=== PATIENT | female | born 1950 | race Caucasian/White ===

== ENCOUNTER 2020-03-12 10:36 | Outpatient (CLI) | payer MEDICARE, BC, SELFPAY ==
[2020-03-12 11:39] LABS: Anion Gap 14.1 (5-19); Blood Urea Nitrogen 6 mg/dL (8-23); Calcium 9.7 mg/dL (8.5-10.5); Carbon Dioxide 29 mmol/L (22-29); Chloride 100 mmol/L (98-107); Free T4 Free Thyroxine 1.34 ng/dL (0.82-1.77); Glucose 101 mg/dL (65-115); Osmolality Calculated 286 mOsm/kg (285-295); Potassium 3.1 mmol/L (3.5-5.1); Sodium 140 mmol/L (136-145)
== END 2020-03-12 10:37 | disposition home or self-care (01) ==
LOC: LAB 10:50
PROVIDERS: Internal Medicine; PCP Nurse Practitioner Family; Visit Provider Nurse Practitioner Family
DX: E27.49 Other adrenocortical insufficiency (principal); E03.8 Other specified hypothyroidism; E89.3 Postprocedural hypopituitarism; Z98.890 Other specified postprocedural states
CPT/HCPCS: 80048; 84439; 99204

== ENCOUNTER 2020-05-29 14:28 | Inpatient (IN) | payer MEDICARE, BC, SELFPAY ==
[2020-05-29] VITALS (54 sets, daily range): BP systolic 114–153; BP diastolic 67–93; PULSE 62–77; RESP 13–22; TEMP 36.3–36.9; O2SAT 89–98; BMI 29.0
--- NOTE | 2020-05-29 14:32 | CT_ITS ---
WS: [id number] CT HEAD TECHNIQUE: Noncontrast CT of the head obtained from the skullbase to the vertex. CLINICAL INFORMATION: ams COMPARISON: 3 31,015 DLP: All CT scans at [facility] use at least one of these dose optimization techniques: automat ed exposure control; mA and/or kV adjustment per patient size (includes targeted exams where dose is matched to clinical indication); or iterative reconstruction. FINDINGS: No evidence of intracranial hemorrhage or mass effect. Ventricular system and basal cisterns are reese nt. Mild small vessel changes. Mild parenchymal volume loss. No extra-axial fluid collections. No eunice dence of mass or mass effect. Normal dailey-white differentiation. Paranasal sinuses and mastoid air cells are well aerated. .Normal visualized soft tissues. CT/CT head wo con* [id number] IMPRESSION: 1. No evidence of intracranial hemorrhage or mass effect. 2. Mild small vessel changes. Mild parenchymal volume loss. 3. No acute intracranial findings. Notified Melissa Miranda MD at 05/29/2020 2:40 PM.
--- NOTE | 2020-05-29 14:32 | XR_ITS ---
WS: [id number] Portable AP upright chest, 05/29/2020 Clinical Data: ams Comparison: Portable chest, 04/21/2018. Findings: The patient has a poor inspiratory effort which accentuates the atelectatic changes at the lung bases. There could also be bilateral basilar pneumonia. The upper lobes are clear. The heart siz e is normal. No pneumothorax is seen. Monitor leads are on the chest wall. There are right axillary s urgical clips. XR/XR chest 1V portable [id number] Impression: 1. Poor inspiratory effort and there may be bilateral basilar atelectasis and m inimal pneumonia. 2. Recommend repeat chest x-ray with better inspiration in one to 2 days.
--- NOTE | 2020-05-29 14:33 | ECG_ITS ---
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 Measurements Intervals [place] Rate: 63 P: 35 MN: 175 QRS: 12 QRSD: 105 T: 48 QT: 417 QTc: 428 Interpretive Statements SINUS RHYTHM LOW QRS VOLTAGE IN PRECORDIAL LEADS [QRS DEFLECTION < 1.0 mV IN CHEST LEADS] INFERIOR MYOCARDIAL INFARCTION , PROBABLY OLD [40+ ms Q WAVE AND/OR ST/T ABNORMALITY IN II/aVF] Compared to ECG 04/21/2018 16:55:44 Low QRS voltage now present Myocardial infarct finding still present Electronically Signed On 05-29-2020 17:13:57 HAND TENNIS [employer]ALL COVERER by Barber Lamb M.D. [email or web address]
[2020-05-29 14:45] LABS: ABG PCO2 45.5 mmHg (35-45); ABG PH Result 7.42 (7.35-7.45); Blood Gas Operator Identificat AMH; HCO3 ABG 29.3 mmol/L (22-26); PO2 ABG 61.1 mmHg (80.0-100.0)
[2020-05-29 14:46] LABS: Arterial Blood Gas Hematocrit 42.6 % (37-47); HGB O2 Sat 90.9 % (95-100); Methemoglobin 0.7 % (0.4-1.5); Oxygen Device NC; Total Hemoglobin 13.9 g/dL (12-16)
[2020-05-29 14:50] LABS: Glucose Point of Care 92 mg/dL (70-110)
--- NOTE | 2020-05-29 15:00 | ED_ITS ---
HPI - Altered Mental Status General: Chief Complaint: Altered Mental Status Stated Complaint: Unresponsive Time Seen by Provider: 05/29/20 14:32 Source: EMS Mode of arrival: EMS Limitations: altered mental status History of Present Illness: HPI narrative: 69-year-old female who is here by EMS for altered mental status. Patient per family at 130 had become unresponsive. Here she is diffusely unresponsive. She will respong to painful stimuli but will only moan. She will not give any history and will not speak. Patient is normotensive and pulse ox 98% on room air. Her heart rates normal as well. She had no known fever. No known med ingestion. Patient did have 0.4 Narcan in route. Review of Systems General: Reports: ROS unobtainable due to medical condition PFSH ED PFSH: Medical History (Updated 05/29/20 @ 16:37 by Melissa Miranda MD) Diastolic dysfunction H/O: pituitary tumor History of stroke HTN (hypertension) TIA (transient ischemic attack) Surgical History (Updated 03/17/20 @ 10:52 by Clement Sanchez MD) History of abdominal surgery Exploratory History of surgical removal of pituitary gland S/P lumpectomy of breast Family History Father Stroke Other CAD (coronary artery disease) Hypertension Social History Smoking and tobacco status: never smoked Alcohol intake: never Household members: spouse Marital status: Physical Exam Const: COMMON NORMALS: negative for patient oriented x3 EXAM LIMITATIONS: altered mental status HENMT: COMMON NORMALS: normocephalic and atraumatic HEAD & SCALP: normocephalic and atraumatic Eye: COMMON NORMALS: Equal, round and reactive pupils present and EOMs intact bilaterally PUPIL: Yes Equal, round and reactive pupils present Neck/C-Spine: COMMON NORMALS: full ROM and supple Chest: COMMONS NORMALS: normal inspection of the chest and normal palpation of entire chest wall Resp: COMMON NORMALS: normal respiratory effort, No retractions, No use of accessory muscles and clear to auscultation bilaterally AUSCULTATION: clear to auscultation bilaterally Cardio: COMMON NORMALS: regular rate, regular rhythm and No murmurs present (Cardio) RATE: regular rate RHYTHM: regular rhythm GI: COMMON NORMALS: Normal to inspection, nondistended, normoactive bowel sounds present, Soft to palpation, non-tender and no masses PALPATION: Yes Soft to palpation Extremity: COMMON NORMALS: normal to inspection and full ROM Neuro: COMMON NORMALS: no focal motor deficits; negative for patient oriented x3 and negative for moves all extremities SENSORIUM/ORIENTATION: Yes somnolent Psych: COMMON NORMALS: negative for mental status grossly normal Skin: COMMON NORMALS: no rashes or lesions noted and no wounds GENERAL SKIN EXAM: no rashes or lesions noted Course Vital Signs: Vital signs: Vital Signs Temperature 98.4 F 05/29/20 14:29 Pulse Rate 62 05/29/20 14:43 Respiratory Rate 18 05/29/20 14:43 Blood Pressure 126/86 05/29/20 14:43 Pulse Oximetry 93 05/29/20 14:43 MDM - Altered Mental Status MDM Narrative: Medical decision making narrative: Patient presents with altered mental status. Patient's work-up so far is normal. Patient's CT head x-ray and blood work are all normal. She has no signs of any ingestion and her vital signs here been completely normal. Patient's continue to be altered and only responds to painful stimuli. She has no fever no signs of infection. Patient was seen by neurologist Dr. Casarez when she arrived and Hermelindo did not believe she was a TPA candidate or an acute stroke. Will speak to Dr. Fox and admit to the ICU at this time. Lab Data: Labs: Lab Results 05/29/20 05/29/20 05/29/20 Range/Units 14:32 14:45 14:47 WBC 6.4 (4.0-10.0) 10^3/ uL RBC 4.49 (4.1-5.3) 10^6/u L Hgb 13.3 (11.5-15.3) g/dL Hct 41.7 (37.0-47.0) % MCV 92.9 (81-99) fL MCH 29.6 (28.0-34.0) pg MCHC 31.9 (30.0-36.0) g/dL RDW 13.9 (12.1-15.1) % Plt Count 195 (130-400) 10^3/c mm MPV 10.2 (7.4-10.4) fL Neut % (Auto) 59.5 % Lymph % (Auto) 31.2 % [place] % (Auto) 7.7 % Eos % (Auto) 0.6 % Baso % (Auto) 0.5 % Neut # (Auto) 3.80 (1.8-7.7) 10^3/u L Lymph # (Auto) 2.0 (0.8-4.8) 10^3/u L [place] # (Auto) 0.5 (0.2-0.9) 10^3/u L Eos # (Auto) 0.0 (0.0-0.8) 10^3/u L Baso # (Auto) 0.0 (0.0-0.1) 10^3/u L Nucleated RBC % (a uto) 0 % Nucleated RBCs # 0.0 /100WBC PT (12.1-14.9) SECO NDS INR (0.8-1.2) Specimen Type Arterial Sample Site Radial, left ABG pH 7.42 (7.35-7.45) ABG pCO2 45.5 H (35-45) mmHg ABG pO2 61.1 L (80.0-100.0) mmH g ABG HCO3 29.3 H (22-26) mmol/L ABG Base Excess 4.0 H (-2.0-2.0) mmol/ L Krishna Test Pos Hematocrit 42.6 (37-47) % Hgb O2 Saturation 90.9 L (95-100) % Carboxyhemoglobin 1.0 (0.4-20.1) %THgb Methemoglobin 0.7 (0.4-1.5) % Total Hemoglobin 13.9 (12-16) g/dL O2 Delivery Device Nc Dredge Or Barge [place] Hand ID Amh Sodium (136-145) mmol/L Potassium (3.5-5.1) mmol/L Chloride (98-107) mmol/L Carbon Dioxide (22-29) mmol/L Anion Gap (5-19) BUN (8-23) mg/dL Creatinine (0.5-0.9) mg/dL GFR Calculation Glucose (65-115) mg/dL POC Glucose 92 (70-110) mg/dL Calculated Osmolal ity (285-295) mOsm/k g Calcium (8.5-10.5) mg/dL Total Bilirubin (0.15-1.2) mg/dL AST (0-32) U/L ALT (0-33) U/L Alkaline Phosphata se (35-105) IU/L Total Protein (6.6-8.7) g/dL Albumin (3.5-5.2) g/dL Globulin (1.3-4.6) g/dL TSH (0.27-4.20) uIU/ mL Urine Color (Yellow) Urine Appearance (CLEAR) Urine pH (5-7) Ur Specific Gravit y (1.005-1.030) Urine Protein (Negative) Urine Glucose (UA) (Normal) Urine Ketones (Negative) Urine Blood (Negative) Urine Nitrate (Negative) Urine Bilirubin (Negative) Urine Urobilinogen (Negative) mg/dL Ur Leukocyte Monae ase (Negative) Urine RBC (0-2) /hpf Urine WBC (0-5) /hpf Ur Squamous Epith Cells (0-5) /hpf Amorphous Sediment Urine Bacteria (NONE) /hpf Urine Mucus /hpf Salicylates (3-10) mg/dL Urine Opiates Scre en (Negative) ng/mL Acetaminophen (10-30) ug/mL Ur Barbiturates Sc reen (Negative) ng/mL Ur Phencyclidine S crn (Negative) ng/mL Ur Amphetamines Sc reen (Negative) ng/mL U Benzodiazepines Scrn (Negative) ng/mL Urine Cocaine Scre en (Negative) ng/mL U Marijuana (THC) Screen (Negative) ng/mL Ethyl Alcohol (0-10) mg/dL 05/29/20 05/29/20 05/29/20 Range/Units 14:47 14:47 15:00 WBC (4.0-10.0) 10^3/ uL RBC (4.1-5.3) 10^6/u L Hgb (11.5-15.3) g/dL Hct (37.0-47.0) % MCV (81-99) fL MCH (28.0-34.0) pg MCHC (30.0-36.0) g/dL RDW (12.1-15.1) % Plt Count (130-400) 10^3/c mm MPV (7.4-10.4) fL Neut % (Auto) % Lymph % (Auto) % [place] % (Auto) % Eos % (Auto) % Baso % (Auto) % Neut # (Auto) (1.8-7.7) 10^3/u L Lymph # (Auto) (0.8-4.8) 10^3/u L [place] # (Auto) (0.2-0.9) 10^3/u L Eos # (Auto) (0.0-0.8) 10^3/u L Baso # (Auto) (0.0-0.1) 10^3/u L Nucleated RBC % (a uto) % Nucleated RBCs # /100WBC PT 12.50 (12.1-14.9) SECO NDS INR 0.91 (0.8-1.2) Specimen Type Sample Site ABG pH (7.35-7.45) ABG pCO2 (35-45) mmHg ABG pO2 (80.0-100.0) mmH g ABG HCO3 (22-26) mmol/L ABG Base Excess (-2.0-2.0) mmol/ L Krishna Test Hematocrit (37-47) % Hgb O2 Saturation (95-100) % Carboxyhemoglobin (0.4-20.1) %THgb Methemoglobin (0.4-1.5) % Total Hemoglobin (12-16) g/dL O2 Delivery Device Dredge Or Barge [place] Hand ID Sodium 140 (136-145) mmol/L Potassium 3.2 L (3.5-5.1) mmol/L Chloride 100 (98-107) mmol/L Carbon Dioxide 31 H (22-29) mmol/L Anion Gap 12.2 (5-19) BUN 6 L (8-23) mg/dL Creatinine 1.1 H (0.5-0.9) mg/dL GFR Calculation Not Reportable Glucose 98 (65-115) mg/dL POC Glucose (70-110) mg/dL Calculated Osmolal ity 288 (285-295) mOsm/k g Calcium 9.3 (8.5-10.5) mg/dL Total Bilirubin 0.3 (0.15-1.2) mg/dL AST 13 (0-32) U/L ALT 8 (0-33) U/L Alkaline Phosphata se 96 (35-105) IU/L Total Protein 6.2 L (6.6-8.7) g/dL Albumin 3.7 (3.5-5.2) g/dL Globulin 2.5 (1.3-4.6) g/dL TSH 0.07 L (0.27-4.20) uIU/ mL Urine Color Yellow (Yellow) Urine Appearance Clear (CLEAR) Urine pH 5.0 (5-7) Ur Specific Gravit y 1.015 (1.005-1.030) Urine Protein Neg (Negative) Urine Glucose (UA) Norm (Normal) Urine Ketones Negative (Negative) Urine Blood Trace H (Negative) Urine Nitrate Negative (Negative) Urine Bilirubin Neg (Negative) Urine Urobilinogen Norm (Negative) mg/dL Ur Leukocyte Monae ase Negative (Negative) Urine RBC 0-4 H (0-2) /hpf Urine WBC None (0-5) /hpf Ur Squamous Epith Cells 0-4 H (0-5) /hpf Amorphous Sediment Not Reportable Urine Bacteria Trace (NONE) /hpf Urine Mucus Trace /hpf Salicylates 1.3 L (3-10) mg/dL Urine Opiates Scre en (Negative) ng/mL Acetaminophen < 5.0 L (10-30) ug/mL Ur Barbiturates Sc reen (Negative) ng/mL Ur Phencyclidine S crn (Negative) ng/mL Ur Amphetamines Sc reen (Negative) ng/mL U Benzodiazepines Scrn (Negative) ng/mL Urine Cocaine Scre en (Negative) ng/mL U Marijuana (THC) Screen (Negative) ng/mL Ethyl Alcohol < 10 (0-10) mg/dL 05/29/20 Range/Units 15:00 WBC (4.0-10.0) 10^3/ uL RBC (4.1-5.3) 10^6/u L Hgb (11.5-15.3) g/dL Hct (37.0-47.0) % MCV (81-99) fL MCH (28.0-34.0) pg MCHC (30.0-36.0) g/dL RDW (12.1-15.1) % Plt Count (130-400) 10^3/c mm MPV (7.4-10.4) fL Neut % (Auto) % Lymph % (Auto) % [place] % (Auto) % Eos % (Auto) % Baso % (Auto) % Neut # (Auto) (1.8-7.7) 10^3/u L Lymph # (Auto) (0.8-4.8) 10^3/u L [place] # (Auto) (0.2-0.9) 10^3/u L Eos # (Auto) (0.0-0.8) 10^3/u L Baso # (Auto) (0.0-0.1) 10^3/u L Nucleated RBC % (a uto) % Nucleated RBCs # /100WBC PT (12.1-14.9) SECO NDS INR (0.8-1.2) Specimen Type Sample Site ABG pH (7.35-7.45) ABG pCO2 (35-45) mmHg ABG pO2 (80.0-100.0) mmH g ABG HCO3 (22-26) mmol/L ABG Base Excess (-2.0-2.0) mmol/ L Krishna Test Hematocrit (37-47) % Hgb O2 Saturation (95-100) % Carboxyhemoglobin (0.4-20.1) %THgb Methemoglobin (0.4-1.5) % Total Hemoglobin (12-16) g/dL O2 Delivery Device Dredge Or Barge [place] Hand ID Sodium (136-145) mmol/L Potassium (3.5-5.1) mmol/L Chloride (98-107) mmol/L Carbon Dioxide (22-29) mmol/L Anion Gap (5-19) BUN (8-23) mg/dL Creatinine (0.5-0.9) mg/dL GFR Calculation Glucose (65-115) mg/dL POC Glucose (70-110) mg/dL Calculated Osmolal ity (285-295) mOsm/k g Calcium (8.5-10.5) mg/dL Total Bilirubin (0.15-1.2) mg/dL AST (0-32) U/L ALT (0-33) U/L Alkaline Phosphata se (35-105) IU/L Total Protein (6.6-8.7) g/dL Albumin (3.5-5.2) g/dL Globulin (1.3-4.6) g/dL TSH (0.27-4.20) uIU/ mL Urine Color (Yellow) Urine Appearance (CLEAR) Urine pH (5-7) Ur Specific Gravit y (1.005-1.030) Urine Protein (Negative) Urine Glucose (UA) (Normal) Urine Ketones (Negative) Urine Blood (Negative) Urine Nitrate (Negative) Urine Bilirubin (Negative) Urine Urobilinogen (Negative) mg/dL Ur Leukocyte Monae ase (Negative) Urine RBC (0-2) /hpf Urine WBC (0-5) /hpf Ur Squamous Epith Cells (0-5) /hpf Amorphous Sediment Urine Bacteria (NONE) /hpf Urine Mucus /hpf Salicylates (3-10) mg/dL Urine Opiates Scre en Negative (Negative) ng/mL Acetaminophen (10-30) ug/mL Ur Barbiturates Sc reen Negative (Negative) ng/mL Ur Phencyclidine S crn Negative (Negative) ng/mL Ur Amphetamines Sc reen Negative (Negative) ng/mL U Benzodiazepines Scrn Negative (Negative) ng/mL Urine Cocaine Scre en Negative (Negative) ng/mL U Marijuana (THC) Screen Negative (Negative) ng/mL Ethyl Alcohol (0-10) mg/dL Imaging Data^: CXR: Radiologist's impression: [address] [address] XRay Report Signed Patient: Marjorie Gottlieb Unit #: [id number] : 1950 Age/Sex: 69 / F ADM Date: 05/29/20 Loc: ER Room/Bed: Attending Dr: Ordering Provider/Ordering MD: Melissa Miranda MD Date of Service: 05/29/20 Procedure(s): XR chest 1V portable [id number] Accession Number(s): [id number] Report Number: [id number] WS: [id number] Portable AP upright chest, 05/29/2020 Clinical Data: ams Comparison: Portable chest, 04/21/2018. Findings: The patient has a poor inspiratory effort which accentuates the atelectatic changes at the lung bases. There could also be bilateral basilar pneumonia. The upper lobes are clear. The heart size is normal. No pneumothorax is seen. Monitor leads are on the chest wall. There are right axillary surgical clips. XR/XR chest 1V portable [id number] Impression: 1. Poor inspiratory effort and there may be bilateral basilar atelectasis and minimal pneumonia. 2. Recommend repeat chest x-ray with better inspiration in one to [address] Head: Radiologist's impression: [address] [address] [address] Scan Report Signed Patient: Marjorie Gottlieb Unit #: [id number] : 1950 Age/Sex: 69 / F ADM Date: 05/29/20 Loc: ER Room/Bed: Attending Dr: Ordering Provider/Ordering MD: Melissa Miranda MD Date of Service: 05/29/20 Procedure(s): CT head wo con* [id number] Accession Number(s): [id number] Report Number: [id number] WS: [id number] CT HEAD TECHNIQUE: Noncontrast CT of the head obtained from the skullbase to the vertex. CLINICAL INFORMATION: ams COMPARISON: 3 ,015 DLP: All CT scans at [facility] use at least one of these dose optimization techniques: automated exposure control; mA and/or kV adjustment per patient size (includes targeted exams where dose is matched to clinical indication); or iterative reconstruction. FINDINGS: No evidence of intracranial hemorrhage or mass effect. Ventricular system and basal cisterns are patent. Mild small vessel changes. Mild parenchymal volume loss. No extra-axial fluid collections. No evidence of mass or mass effect. Normal dailey-white differentiation. Paranasal sinuses and mastoid air cells are well aerated. .Normal visualized soft tissues. CT/CT head wo con* [id number] IMPRESSION: 1. No evidence of intracranial hemorrhage or mass effect. 2. Mild small vessel changes. Mild parenchymal volume loss. 3. No acute intracranial findings. Notified Melissa Miranda MD at 05/29/2020 2:40 PM. EKG Data^: EKG 1: Attestation: I personally reviewed and interpreted this EKG as follows: EKG interpretation date: 05/29/20 EKG interpretation time: 14:41 Interpretation: nsr hr [address] or t wave abnormalities qrs 105 qtc 424 Critical Care Time Critical Care Time: Critical Care Time: Yes Total Critical Care Time: 36 Attestation: This case had a high probability of a clinically significant, sudden, or life threatening deterioration of this patient's condition which required my full and direct attention, intervention and personal management. Discharge Plan Discharge Patient Disposition: Admitted As Inpatient Clinical Impression: Altered mental status Qualifiers: Altered mental status type: unspecified Qualified Code(s): R41.82 - Altered mental status, unspecified Condition: Stable Coding Level of Care Code ED Make Up Arranger for Vu Ochoa
[2020-05-29 15:05] LABS: Basophils % 0.5 %; Eosinophils % 0.6 %; Hematocrit 41.7 % (37.0-47.0); Hemoglobin 13.3 g/dL (11.5-15.3); Lymphocytes % 31.2 %; Mean Corpuscular HGB Conc 31.9 g/dL (30.0-36.0); Mean Corpuscular Hemoglobin 29.6 pg (28.0-34.0); Mean Corpuscular Volume 92.9 fL (81-99); Mean Platelet Volume 10.2 fL (7.4-10.4); Monocytes # 0.5 10^3/uL (0.2-0.9); Monocytes % 7.7 %; Neutrophils % 59.5 %; Nucleated Red Blood Cells % 0 %; Platelet Count 195 10^3/cmm (130-400); Red Blood Count 4.49 10^6/uL (4.1-5.3); Red Cell Distribution Width 13.9 % (12.1-15.1); White Blood Count 6.4 10^3/uL (4.0-10.0)
[2020-05-29 15:05] LABS: Blood Gas Allen Test Pos; Blood Gas Sample Site Radial, left; Blood Gas Sample Type Arterial
[2020-05-29 15:13] LABS: INR 0.91 (0.8-1.2)
[2020-05-29 15:27] LABS: Alanine Aminotransferase 8 U/L (0-33); Albumin Level 3.7 g/dL (3.5-5.2); Alkaline Phosphatase 96 IU/L (35-105); Anion Gap 12.2 (5-19); Aspartate Amino Transferase 13 U/L (0-32); Blood Urea Nitrogen 6 mg/dL (8-23); Calcium 9.3 mg/dL (8.5-10.5); Carbon Dioxide 31 mmol/L (22-29); Chloride 100 mmol/L (98-107); Globulin 2.5 g/dL (1.3-4.6); Glucose 98 mg/dL (65-115); Osmolality Calculated 288 mOsm/kg (285-295); Potassium 3.2 mmol/L (3.5-5.1); Salicylate 1.3 mg/dL (3-10); Sodium 140 mmol/L (136-145); Thyroid Stimulating Hormone 0.07 uIU/mL (0.27-4.20); Total Bilirubin 0.3 mg/dL (0.15-1.2); Total Protein 6.2 g/dL (6.6-8.7)
[2020-05-29 15:29] LABS: Acetaminophen < 5.0 ug/mL (10-30); Alcohol Level < 10 mg/dL (0-10)
[2020-05-29 15:45] LABS: Amphetamines Screen Urine Negative (Negative); Barbiturates Screen Urine Negative (Negative); Benzodiazepines Screen Urine Negative (Negative); Cocaine Screen Urine Negative (Negative); Opiate Screen Urine Negative (Negative); PCP Screen Urine Negative (Negative); THC Screen Urine Negative (Negative)
[2020-05-29 16:09] LABS: Add Urine Culture? No; Add Urine Microscopic? YES; Bacteria Urine TRACE /hpf; Bilirubin Urine Neg (Negative); Blood Urine Trace (Negative); Glucose Urine UA Norm (Normal); Ketones Urine Negative (Negative); Leukocyte Esterase Urine Negative (Negative); Mucus Urine TRACE /hpf; Nitrate Urine Negative (Negative); Protein Urine Neg (Negative); RBC Urine 0-4 /hpf (0-2); Specific Gravity, Urine 1.015 (1.005-1.030); Squamous Epithelial Cell Urine 0-4 /hpf (0-5); Urine Appearance Clear (CLEAR); Urine Color Yellow (Yellow); Urobilinogen Urine Norm (Negative)
--- NOTE | 2020-05-29 16:45 | MRR_ITS ---
PROCEDURE INFORMATION: Exam: MR Head Without Contrast Exam date and time: 05/29/2020 5:57 PM Age: 69 years old Clinical indication: Altered mental status/memory loss; Additional info: Brainstem storke TECHNIQUE: Imaging protocol: MR of the head without contrast. COMPARISON: [place] [id number] 05/29/2020 6:24 PM FINDINGS: Brain: Mild diffuse cortical volume loss. Mild scattered regions of increased T2 FLAIR signal in supratentorial periventricular and subcortical white matter and within the anterior temporal lobes. Diffusion with ADC dropout in the bilateral paramedian thalami. No intracranial hemorrhage. Cerebral ventricles: Normal. No ventriculomegaly. Bones/joints: Unremarkable. Paranasal sinuses: Normal as visualized. No acute sinusitis. Mastoid air cells: Normal as visualized. No mastoid effusion. Orbits: Unremarkable. Soft tissues: Unremarkable. Other vasculature: Normal intracranial arterial and venous flow voids. MR/MR head wo con* [id number] IMPRESSION: 1. Acute ischemic bilateral paramedian thalamic infarcts. This could represent occlusion of a single artery of [place], an anatomic variant. 2. Mild chronic microangiopathy.
--- NOTE | 2020-05-29 16:45 | MRR_ITS ---
PROCEDURE INFORMATION: Exam: MR Angiogram Head Without Contrast, Venogram Exam date and time: 05/29/2020 5:57 PM Age: 69 years old Clinical indication: Weakness; Patient HX: PT ama; Additional info: Brainstem stroke TECHNIQUE: Imaging protocol: MR angiogram of the head without contrast. Exam focused on the veins. 3D rendering (Not supervised by radiologist): MIP and/or 3D reconstructed images were created by the technologist. COMPARISON: MR angio head wo con [id number] 05/29/2020 6:12 PM FINDINGS: Superior sagittal sinus: Patent. Straight sinus: Patent. Internal cerebral and cortical veins: Unremarkable as visualized. Transverse sinuses: Patent. Sigmoid sinuses: Patent. Internal jugular veins: Visualized segment patent. MR/[place] [id number] IMPRESSION: No venous thrombus.
--- NOTE | 2020-05-29 16:45 | MRR_ITS ---
PROCEDURE INFORMATION: Exam: MR Angiogram Head Without Contrast, Arteries Exam date and time: 05/29/2020 5:57 PM Age: 69 years old Clinical indication: Weakness; Patient HX: PT is ama; Additional info: Brainstem stroke TECHNIQUE: Imaging protocol: MR angiogram head without contrast. Exam focused on the arteries. COMPARISON: CT head wo con* [id number] 05/29/2020 2:21 PM FINDINGS: ANTERIOR CIRCULATION: Right internal carotid artery: Intracranial segment is patent with no significant stenosis. No aneurysm. Right middle cerebral artery: No occlusion or significant stenosis. No aneurysm. Right anterior cerebral artery: No occlusion or significant stenosis. No aneurysm. Left internal carotid artery: Intracranial segment is patent with no significant stenosis. No aneurysm. Left middle cerebral artery: No occlusion or significant stenosis. No aneurysm. Left anterior cerebral artery: No occlusion or significant stenosis. No aneurysm. POSTERIOR CIRCULATION: Right vertebral artery: Decreased flow signal in the right vertebral artery is likely artifactual. Left vertebral artery: Decreased flow signal in the left vertebral artery is likely artifactual. 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 Other vasculature: Patent bilateral posterior communicating arteries. MR/MR angio head wo con [id number] IMPRESSION: 1. No large artery occlusion or stenosis. 2. 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
--- NOTE | 2020-05-29 16:57 | P.HP_ITS ---
Providers/Chief Complaint Primary Care Provider: Selma Marks APN Chief Complaint: Unresponsive History of Present Illness Marjorie Gottlieb is a 69 year old female with a recent history of CVA status post TPA on October 2018 at [facility], central hypothyroidism, central adrenal insufficiency, hypertension, diastolic CHF who presents to [facility] due to altered mental status. Patient's is a primary historian, as currently patient is in bed, not responding to sternal rub, she does not awake, snoring. Patient tells me that she has been doing well recently, this morning she got up cooked breakfast, with cleaning up around the house, nothing out of the ordinary, no complaints, no chest pain, no shortness of breath, no fevers, no chills, no nausea, no vomiting, no palpitations. In the afternoon, she suddenly told her that she was not feeling well, she felt weak, she sat in the dining room chair, he was checking her blood pressure, when she suddenly nodded off, was snoring, was not responding, they checked her blood sugar was within normal limits, she did not respond to any commands, no seizure- like episodes, no facial droop, no slurring of her speech, no fall, no injuries, denies her using any narcotics, no benzos, no other drug use, no other medications that are not prescribed. Here in the emergency room, patient's snoring in bed, saturating in the high 90s on room air, normotensive, normal sinus rhythm, afebrile, she does not respond to sternal rub, she does not withdraw from pain, Babinski is positive bilaterally, bilateral pupils are minimally reactive to light, pinpoint, she does not localize pain, no extensor or flexor posturing. Review of Systems General: Reports: ROS unobtainable due to medical condition Medications/Allergies Home Medications Medication Instructions Recorded Confirmed Last Taken Type aspirin 325 mg tablet 325 mg PO DAILY 12/11/19 05/29/20 Unknown History dexamethasone 0.5 mg tablet 0.25 mg PO DAILY tab 12/11/19 05/29/20 Unknown History acetaminophen 500 mg tablet 500 mg PO BID PRN tab 02/06/20 05/29/20 Unknown History cranberry extract 500 mg capsule 500 mg PO DAILY cap 02/06/20 05/29/20 Unknown History metoprolol succinate 50 mg 100 mg PO DAILY tab 02/06/20 05/29/20 Unknown History tablet,extended release 24 hr levothyroxine 75 mcg tablet 75 mcg PO DAILY 03/12/20 05/29/20 Unknown History loperamide 2 mg capsule 2 mg PO Q4H PRN 03/12/20 05/29/20 Unknown History mecobalamin (vitamin B12) 5,000 5,000 mcg PO DAILY 03/12/20 05/29/20 Unknown History mcg disintegrating tablet potassium 99 mg tablet 99 mg PO DAILY PRN tab 03/12/20 05/29/20 Unknown History nitroglycerin 0.4 mg sublingual 0.4 mg SUBLINGUAL Q5M PRN #14 tab 03/17/20 05/29/20 Unknown Rx tablet Allergies Allergy/AdvReac Type Severity Reaction Status Date / Time Iodinated Contrast Media Allergy Severe ALGY-Hives Verified 03/12/20 09:46 Sulfa (Sulfonamide Allergy Severe ALGY-Swell Verified 03/12/20 09:46 Antibiotics) Lip/Tongue/Throat cephalexin Allergy Unknown Unknown Verified 03/12/20 09:46 cortisone Allergy Unknown Unknown Verified 03/12/20 09:46 levofloxacin [From Levaquin] Allergy Unknown Unknown Verified 03/12/20 09:46 nitrofurantoin Allergy Unknown Unknown Verified 03/12/20 09:46 [From Macrobid] esomeprazole [From Nexium] Allergy ALGY-Hives Verified 03/12/20 09:46 PFSH Acute PFSH: Medical History Diastolic dysfunction H/O: pituitary tumor History of stroke HTN (hypertension) TIA (transient ischemic attack) Surgical History History of abdominal surgery Exploratory History of surgical removal of pituitary gland S/P lumpectomy of breast Family History Father Stroke Other CAD (coronary artery disease) Hypertension Social History Smoking and tobacco status: never smoked Alcohol intake: never Household members: spouse Marital status: Vitals/I&O/Wt Last Vital Signs Temp 98.4 F 05/29/20 14:29 Pulse 62 05/29/20 14:43 Resp 18 05/29/20 14:43 BP 126/86 05/29/20 14:43 Pulse Ox 93 05/29/20 14:43 Weight last 48 hrs Weight 81.647 kg Physical Exam Const: COMMON NORMALS: no acute distress NUTRITIONAL APPEARANCE: obese ORIENTATION/CONSCIOUSNESS: Yes patient obtunded; not awake, not oriented to person and not oriented to place HENMT: COMMON NORMALS: normocephalic HEAD & SCALP: normocephalic OTHER: Pinpoint pupils, minimally reactive to light Eye: GENERAL EYE: appearance normal, both eyes and all related structures OTHER: Pinpoint pupils, minimally reactive to light Neck/C-Spine: COMMON NORMALS: full ROM, no lymphadenopathy, no JVD and Thyroid normal THYROID: Thyroid normal Lymph: LYMPHATIC: no lymphadenopathy noted Resp: COMMON NORMALS: normal respiratory effort, No retractions, No use of accessory muscles and clear to auscultation bilaterally AUSCULTATION: clear to auscultation bilaterally Cardio: COMMON NORMALS: no JVD, regular rate, regular rhythm, S1 normal heart sound present, S2 normal heart sound present, No gallops present (Cardio), No clicks present (Cardio) and No murmurs present (Cardio) RATE: regular rate RHYTHM: regular rhythm HEART SOUNDS: S1 normal heart sound present and S2 normal heart sound present GI: COMMON NORMALS: Normal to inspection, nondistended, normoactive bowel sounds present, Soft to palpation, non-tender and No hepatosplenomegaly present PALPATION: Yes Soft to palpation and Yes No hepatosplenomegaly present Extremity: COMMON NORMALS: normal to inspection, full ROM and no pedal edema Neuro: COMMON NORMALS: negative for patient oriented x3 OTHER: Does not follow neurologic's testing Psych: COMMON NORMALS: mental status grossly normal, Normal thought process present and cooperative THOUGHT PROCESS: abnormal Data : 05/29/20 14:47 05/29/20 14:47 A&P Assessment and plan (1) Altered mental status: -History of CVA with TPA in October 2018 in [facility] -Has some vague complaints of chest palpitations, heart rates sometimes greater than 100 -Has been complaining of headaches, saw endocrinology as outpatient -No extensor or flexor posturing, Babinski positive bilaterally, bilateral pupils pinpoint, minimally reactive to light -PCO2 45.5 -Creatinine 1.1 -TSH 0.07 -No focal pneumonia, no UTI -EKG no atrial fibrillation, no acute ST-T wave changes -CT of the head no evidence of intracranial hemorrhage or mass-effect, small vessel changes -Bilateral basilar atelectasis Plan: -MRI, MRA MRV to rule out brainstem stroke -Rectal aspirin, statin -Neurochecks -Aspiration precautions -Seizure precautions -Gentle IV hydration -Allow for permissive hypertension for the next 24 to 48 hours, if systolic blood pressure greater than 220 or diastolic rhythm 120 will give a dose of labetalol -Monitor for seizure-like episodes -IV levothyroxine -IV Decadron -Full code -Lovenox for DVT prophylaxis Status: Acute Qualifiers: Altered mental status type: unspecified Qualified Code(s): R41.82 - Altered mental status, unspecified (2) History of surgical removal of pituitary gland: Status: Acute (3) Secondary adrenal insufficiency: Status: Acute (4) Central hypothyroidism: Status: Acute Attestations Medical Necessity Statement*: Patient requires hospitalization, inpatient, greater than 2 midnights for altered mental status concerning for brainstem stroke Coding Level of Care Code Acute Hi Low Truck Driver for Chg Fwd Diagnoses Altered mental status R41.82 Altered mental status type: unspecified History of surgical removal of pituitary gland Z98.890; E89.3 Secondary adrenal insufficiency E27.49 Central hypothyroidism E03.8
[2020-05-29 17:09] LABS: Troponin(5th) Baseline 6 ng/L (0-10)
--- NOTE | 2020-05-29 17:36 | ECG_ITS ---
[facility] Test Date: 2020-05-29 Pat Name: Marjorie Gottlieb Department: Room: Gender: Female Animal Physiologist: : 1950 Requested By: Melissa Miranda Order Number: [id number] Reading MD: Barber Lamb M.D. Measurements Intervals [place] Rate: 61 P: 46 TX: 204 QRS: 14 QRSD: 103 T: 58 QT: 432 QTc: 438 Interpretive Statements SINUS RHYTHM LOW QRS VOLTAGE IN PRECORDIAL LEADS [QRS DEFLECTION < 1.0 mV IN CHEST LEADS] INFERIOR MYOCARDIAL INFARCTION , PROBABLY OLD [40+ ms Q WAVE AND/OR ST/T ABNORMALITY IN II/aVF] Compared to ECG 05/29/2020 14:41:42 No significant changes Electronically Signed On 05-29-2020 18:29:52 BOUFFANT CURTAIN MACHINE TENDER by Barber Lamb M.D. [email or web address] [id number]
[2020-05-29 18:21] LABS: Troponin 5 2HR Delta 0 ABS# (0-10)
--- NOTE | 2020-05-29 19:04 | PC.NURSE ---
Received report from Charge nurse, pt in MRI with CHERYL Nixon.
[2020-05-29] MEDS: sodium chloride 0.9% 1,000 ML 999 ML IV (19:30)
--- NOTE | 2020-05-29 19:48 | ECG_ITS ---
[facility] Test Date: 2020-05-29 Pat Name: Marjorie Gottlieb Department: Room: [facility] Gender: Female Expert Witness: : 1950 Requested By: Jose Armando Pereira Order Number: [id number] Elsy MD: Emma Cantu M.D. 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 [id number]
[2020-05-29 19:56] LABS: ABG PCO2 44.4 mmHg (35-45); Arterial Blood Gas Hematocrit 40.9 % (37-47); Base Excess ABG 2.3 mmol/L (-2.0-2.0); HCO3 ABG 27.6 mmol/L (22-26); Oxygen Device nasal cannula; PO2 ABG 79.6 mmHg (80.0-100.0)
--- NOTE | 2020-05-29 20:04 | PC.NURSE ---
attempt report to ICU. RN to call back
--- NOTE | 2020-05-29 20:04 | PC.NURSE ---
attempt to call report for ICU. RN to call back
--- NOTE | 2020-05-29 20:05 | PC.NURSE ---
no verbal, pt reacts with painful stimuli.
--- NOTE | 2020-05-29 20:11 | PC.NURSE ---
Verify with provider PREmedication orders for CTA. Give Bendryl and Solumedrol before CTA.
--- NOTE | 2020-05-29 20:13 | PM.SAN ---
Stroke Alert Activation ED Arrival Date: 05/29/20 ED Arrival Time: 14:30 Last Known Normal/at Baseline: 1-2 hours ago Stroke Alert Activated by: ems Stroke Alert Activation Time: 14:11 Stroke MD @ Bedside Time: 14:30 NIH Stroke Scale Time: 14:30 NIH stroke score NIHSS: Level Of Consciousness - 1a: 2 (Stuporous but arousable) Level Of Consciousness Questions - 1b: Neither Correct Level Of Consciousness Commands - 1c: Neither Correct Best Gaze - 2: Normal Facial Palsy - 4: Normal Motor Arm Right - 5: Effort Against [place] Motor Arm Left - 5: Effort Against [place] Motor Leg Right - 6: Effort Against [place] Motor Leg Left - 6: Effort Against [place] Limb Ataxia - 7: Absent Sensory - 8: Normal Stroke Alert Data/Treatment CT Impression: Diffuse atrophy tPA Contraindication: tPA Contraindication: Treatment not indcated Other Information: I was called stat for stroke because of a 69-year-old woman who complained of headache and then became unresponsive. She went directly to CT scan and from my office I reviewed her CT of the head which was unremarkable but for diffuse atrophy. I talked with Dr. Miranda who reported that the patient had no focal findings but that she did not wake up. I was concerned about posterior circulation stroke and came to the bedside and examined the patient. She had normal respiratory pattern. She opened her eyes to pain but did not regard the examiner. She had full oculocephalic movements. Pupils were equal and reactive. Facial movements were symmetric with brow pressure. She withdrew all 4 extremities vigorously from pain and placed her hands on her chest and clasped her fingers. Toes were downgoing. The patient had not had any metabolic work-up and it was my impression that she probably had a metabolic disorder based on the lack of focality, lack of cranial nerve findings and full oculocephalic movements. Later Dr. Palumbo obtained a history from the patient's that her neurologic changes began extremely abruptly after an unremarkable day. Stat MRI scan shows diffusion-weighted abnormality in both of the thalami and chronic wasting of both temporal lobes from prior insult. 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 I talked with Dr. Palumbo and suggested that prior to admission to ICU the patient should have CTA to make sure she does not have a proximal vertebral artery embolus or thrombus. Increase IV fluids and keep the patient flat. Critical Care Time Critical Care Time: 30 - 74 mins A&P Assessment and plan (1) Top of basilar syndrome: This patient presented with coma of sudden onset with no focal findings, now evident as a tip of the basilar syndrome, posterior circulation ischemia. This most often responds to keeping the patient flat and providing IV fluids. It is unlikely that she has any lesion that would respond to embolectomy. I will follow along with you and will see her this weekend. 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
[2020-05-29] MEDS: diphenhydrAMINE 50 mg/mL SDV 1mL 25 MG IVP (20:19)
--- NOTE | 2020-05-29 20:25 | PC.NURSE ---
Report to CHERYL Paula
[2020-05-29 21:03] LABS: Glucose Point of Care 97 mg/dL (70-110)
[2020-05-29] MEDS: enoxaparin 40 mg/0.4 mL Syringe SUBCUT (21:05)
[2020-05-29] MEDS: lactated ringers 1,000 ML 100 ML IV (21:05)
[2020-05-29] MEDS: famotidine 20 mg/2 mL INJ IVP (21:05)
[2020-05-29] MEDS: aspirin 300 mg Supp PR (21:06)
[2020-05-29 21:25] LABS: Troponin(5th) Baseline 6 ng/L (0-10)
--- NOTE | 2020-05-29 21:53 | PC.NURSE ---
ICU Transfer: Patient arrived to ICU5 via gurney accompanied by ED staff X1 at 2052. No personal belongings noted with her transfer. She is on 2L NC, and SPO2 sat at 98%. Patient transferred to ICU5 bed by nursing staff X4 without incident. Primary RN observed patient withdrawing from some pain/stimuli, during transfer. MD and RN observed fixed pupils non reactive to light bilaterally. GCS at 6. Various staging/colored bruising noted to bilateral upper and lower arms (documented in wound assessment). New v/o by MD for insertion of ambrocio cath. 16F placed aseptically with 10mL in indwelling balloon. 500mL bright yellow u/o immediately with placement. RN received call from ED physician stating patient is to remain flat in bed at this time.
[2020-05-29 22:11] LABS: Troponin 5 6HR Delta 0 ng/L (0-12)
--- NOTE | 2020-05-29 22:55 | PC.NURSE ---
Updated numbers given to MD, and passed along to RN to place in chart/write note. -Maurilio; Home CALL FIRST -Maurilio; Son-Marky Gottlieb;
[2020-05-30] VITALS (256 sets, daily range): BP systolic 107–177; BP diastolic 67–106; PULSE 0–108; RESP 0–39; TEMP 35.7–36.9; O2SAT 87–98
--- NOTE | 2020-05-30 05:27 | PC.NURSE ---
Password created: Daughter called this AM. Created password for future calls. Password set was last 4 digits of OV number ([id number]). Updated her on patients' current status/plan of care.
[2020-05-30] MEDS: lactated ringers 1,000 ML 100 ML IV (06:22)
--- NOTE | 2020-05-30 06:24 | PC.NURSE ---
Shift Summary: Patient has for the most part remained at a GCS of 7. More recently in the last couple of hours there was one instance in which RN asked patient to squeeze her hands, and bilaterally patient did so weakly. Her pupils have remained fixed and non-reactive to light. MD simulation analyst observed and agreed that eyes are nonreactive and fixed. Patient does not open eyes when asked, but will localize pain/stimuli at times. Both her son and daughter have called during shift for updates on mother's condition. Son stated that when he responded to patients home after phone call was made by his father asking him to come to the house, he found patient in a catatonic like state , and she was sitting stiff straight up in a chair, with no back or arms . He also stated she would return to this position even with family maneuvering her. Patient was titrated down off of 2L NC and is now on RM air with saturations 92-95%. 1000 u/o LR @100mL/hr
[2020-05-30 06:34] LABS: SARS Covid-2 Antigen Negative (Negative)
--- NOTE | 2020-05-30 07:00 | USCV_ITS ---
Marjorie Gottlieb Age: 69 Gender: F : 1950 Exam Date: 05/30/2020 06:19 Ordering Phys: Jose Armando Pereira MD Technologist: Marielle Montelongo Exam Location: [facility] [place] Indication: AMA BP: 118 / 77 HR: 85 Rhythm: Sinus Technical Quality: Adequate MEASUREMENTS (Male / Female) Normal Values 2D ECHO LV Diastolic Diameter PLAX 3.2 cm 4.2 - 5.9 / 3.9 - 5.3 cm LV Systolic Diameter PLAX 2.3 cm LV Chamber Size 2.1 cm IVS Diastolic Thickness 0.9 cm 0.6 - 1.0 / 0.6 - 0.9 cm IVS Systolic Thickness 1.2 cm LVPW Diastolic Thickness 1.6 cm 0.6 - 1.0 / 0.6 - 0.9 cm LVPW Systolic Thickness 2.5 cm RV Chamber Size 2.0 cm LVOT Diameter 2.0 cm LV Ejection Fraction 2D Teich 56.9 % LV Ejection Fraction MOD 2C 54.6 % LV Ejection Fraction 2C AL 54.7 % LA Diameter 3.2 cm LA Width 2.7 cm LA Height 3.1 cm RA Width 1.7 cm RA Height 2.9 cm Aorta at Sinotubular Diameter 2.6 cm M-MODE LV Diastolic Diameter MM 4.8 cm 4.2 - 5.9 / 3.9 - 5.3 cm LV Systolic Diameter MM 2.9 cm LV Ejection Fraction MM Teich 70.9 % IVS Diastolic Thickness MM 0.8 cm 0.6 - 1.0 / 0.6 - 0.9 cm IVS Systolic Thickness MM 1.2 cm LVPW Diastolic Thickness MM 1.2 cm 0.6 - 1.0 / 0.6 - 0.9 cm LVPW Systolic Thickness MM 1.9 cm Aortic Annulus Diameter 3.4 cm LA Ao Ratio MM 1.2 MV E Point Septal Separation 0.4 cm DOPPLER AV Peak Velocity 90.0 cm/s LVOT Peak Velocity 80.0 cm/s AV Area Cont Eq vti 3.1 cm squared AV Area Cont Eq pk 2.9 cm squared MV Area PHT 5.0 cm squared Mitral E to A Ratio 141.9 MV E' Velocity 56.5 cm/s Mitral E to MV E' Ratio 7.0 Mitral E to LV E' Lateral Ratio 6.9 Mitral E to LV E' Septal Ratio 7.2 TR Peak Velocity 189.7 cm/s TR Peak Gradient 14.4 mmHg TV Peak E Velocity 84.0 cm/s Right Atrial Pressure 3.0 mmHg Pulmonary Artery Systolic Pressu 17.4 mmHg PV Peak Velocity 84.0 cm/s RV Acceleration Time 0.1 s RV Ejection Time 0.4 s RV AcT/ET 0.4 FINDINGS Left Ventricle Normal left ventricular size, systolic function ,left ventricular ejection fraction is estimated at 60 %. No regional wall motion abnormalities. Normal left ventricular wall thickness. Normal diastolic filling pattern. Right Ventricle The right ventricle is normal in size and function. Right Atrium The right atrium is normal in size. Left Atrium The left atrium is normal in size. Mitral Valve Structurally normal mitral valve without significant stenosis or prolapse. There is no mitral regurgitation. Aortic Valve Structurally normal aortic valve without significant sclerosis or stenosis. There is no aortic regurgitation. Tricuspid Valve Structurally normal tricuspid valve without significant stenosis or regurgitation. Pulmonary artery systolic pressure is normal. Pulmonic Valve Structurally normal pulmonic valve without significant stenosis. There is no pulmonic regurgitation. Pericardium Normal pericardium without effusion. Aorta Normal ascending aorta dimension. CONCLUSIONS 1-Normal left ventricular size, systolic function ,left ventricular ejection fraction is estimated at 60 %. No regional wall motion abnormalities. Normal left ventricular wall thickness. Normal diastolic filling pattern. 2-No significant valve abnormalities. 4-There is no pericardial effusion. 5-Pulmonary artery systolic pressure is within normal limits. 6-No significant change since the prior echocardiogram study of 03/20/2018. Cherri Mckeon MD (Electronically Signed) Final Date: 30 May 2020 15:55 S
[2020-05-30] MEDS: famotidine 20 mg/2 mL INJ IVP ×2 (09:06→20:24)
[2020-05-30] MEDS: dexamethasone 4 mg/mL INJ 1 MG IVP (09:07)
[2020-05-30] MEDS: aspirin 300 mg Supp PR (09:07)
[2020-05-30] MEDS: levothyroxine 100 mcg SDV 25 MCG IVP (09:07)
--- NOTE | 2020-05-30 09:28 | PC.CHAP ---
Pastoral Care Encounter/Spiritual Assessment Type of Contact [] Declined house worker general visit [] Patient/Family/Request visit [] Outpatient visit [] Follow-up visit [] Physician referral [] Code/Alert [] Routine visit [] Staff referral [] Actively dying [] Patient sleeping [] Family support [] [] Out of room [] Palliative care [] [] Receiving care in room [] Pre-surgical visit [] Trauma [] Long length of stay [] ICU visit [] Other: Relational/Emotional Strength [] Patient feels connected with others/family/visitors/staff [] Distress [] Loneliness/isolation [] Abandonment Spirituality of Patient [] Person of Fabi [] Attends Bahai of their Fabi [] Believes in Prayer [] Reads Bible or Samaritan materials [] There are Spiritual issues to be addressed General Adjuster Interventions [x] Prayer [] Active listening [] Non-anxious presence [] Spiritual/emotional support [] Crisis/trauma care [] Spiritual counseling [] Bereavement support [] Provided bereavement packet [] Provided Bible/devotional materials [] Provided toy/stuffed animal, coloring book to patient or family member [] Provided Communion [] Anointing/[place]der[place] [] Salvation [x] Completed spiritual assessment [] Other: Impact on Illness or Injury [] Angry [] Fearful [] Anxious [] Often cries [] Exhaustion [] Unable to work [] Unable to attend hinduism [] Unable to walk/stand [] Unable to read [] Unable to drive [] Unable to eat/drink [] Unable to sleep [] Unable to be with family [] Patient intubated [] Other: Summary Time spent with patient
[2020-05-30 10:42] LABS: Basophils % 0.1 %; Hematocrit 43.3 % (37.0-47.0); Lymphocytes # 0.7 10^3/uL (0.8-4.8); Mean Corpuscular HGB Conc 32.3 g/dL (30.0-36.0); Mean Corpuscular Hemoglobin 29.7 pg (28.0-34.0); Mean Corpuscular Volume 91.9 fL (81-99); Mean Platelet Volume 10.2 fL (7.4-10.4); Monocytes # 0.1 10^3/uL (0.2-0.9); Neutrophils # 7.35 10^3/uL (1.8-7.7); Neutrophils % 89.3 %; Nucleated Red Blood Cells % 0 %; Platelet Count 181 10^3/cmm (130-400); Red Blood Count 4.71 10^6/uL (4.1-5.3); Red Cell Distribution Width 13.4 % (12.1-15.1); White Blood Count 8.2 10^3/uL (4.0-10.0)
[2020-05-30 10:55] LABS: Alanine Aminotransferase 9 U/L (0-33); Albumin Level 3.7 g/dL (3.5-5.2); Alkaline Phosphatase 102 IU/L (35-105); Anion Gap 13.8 (5-19); Aspartate Amino Transferase 16 U/L (0-32); Blood Urea Nitrogen 8 mg/dL (8-23); Calcium 9.2 mg/dL (8.5-10.5); Carbon Dioxide 26 mmol/L (22-29); Chloride 104 mmol/L (98-107); Globulin 2.7 g/dL (1.3-4.6); Glucose 166 mg/dL (65-115); Magnesium 2.1 mg/dL (1.7-2.3); Osmolality Calculated 292 mOsm/kg (285-295); Phosphorus 1.9 mg/dL (2.5-4.5); Potassium 3.8 mmol/L (3.5-5.1); Sodium 140 mmol/L (136-145); Total Bilirubin 0.2 mg/dL (0.15-1.2); Total Protein 6.4 g/dL (6.6-8.7)
[2020-05-30] MEDS: sodium chloride 0.9% 1,000 ML 150 ML IV ×3 (11:36→22:11)
--- NOTE | 2020-05-30 12:42 | P.PN_ITS ---
Subjective Subjective: Interval history: This morning patient was examined, she does not awaken, but does withdraw from pain, does turn away from the light, she is snoring, on 2 L, Babinski upwards bilaterally, she does at times spontaneously move her upper extremities, try to reposition herself, no movement of bilateral lower extremities, pupils are pinpoint bilaterally, are minimally reactive to light, afebrile overnight, normotensive, no arrhythmia events, on 2 L Vitals/I&O/Wt Last Vital Signs Temp 97.2 F L 05/30/20 08:00 Pulse 91 05/30/20 09:50 Resp 19 H 05/30/20 09:50 BP 120/67 05/30/20 11:00 Pulse Ox 97 05/30/20 09:50 05/29/20 05/30/20 05/30/20 22:59 06:59 14:59 Intake Total 1000 / 1000 928.333 / 1928.333 0 / 0 Output Total 1000 / 1000 150 / 150 Balance 1000 / 1000 -71.667 / 928.333 -150 / -150 Weight last 48 hrs Weight 81.647 kg Physical Exam Const: NUTRITIONAL APPEARANCE: obese ORIENTATION/CONSCIOUSNESS: Yes patient obtunded; not oriented to person, not oriented to place and not oriented to time Neuro: SENSORIUM/ORIENTATION: No alert, No oriented to person, No oriented to place, No oriented to time and Yes obtunded OTHER: Does not follow neurologic testing No extensor or flexor posturing Does withdraw from pain Does turn away from the light Does spontaneously move her upper extremities to reposition Does not move lower extremities Pinpoint pupils bilaterally, minimally reactive to light Urinary Catheter Management^: Olson: Cath Placed During This Visit: yes Reason for Continuing Indwelling Catheter: Accurate Measurement of Urinary Output in Critically Ill Patients Urinary Catheter Date of Insertion: 05/29/20 Urinary Catheter Time of Insertion: 21:20 Data : 05/30/20 10:13 05/30/20 10:13 A&P Assessment and plan (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 Mild scattered regions of increased T2 FLAIR signal in supratentorial periventricular and subcortical white matter and within the anterior temporal lobes. Diffusion with ADC dropout in the bilateral paramedian thalami. No intracranial hemorrhage. Cerebral ventricles: Normal. No ventriculomegaly. Bones/joints: Unremarkable. Paranasal sinuses: Normal as visualized. No acute sinusitis. Mastoid air cells: Normal as visualized. No mastoid effusion. Orbits: Unremarkable. Soft tissues: Unremarkable. -ANTERIOR CIRCULATION: Right internal carotid artery: Intracranial segment is patent with no significant stenosis. No aneurysm. Right middle cerebral artery: No occlusion or significant stenosis. No aneurysm. Right anterior cerebral artery: No occlusion or significant stenosis. No aneurysm. Left internal carotid artery: Intracranial segment is patent with no significant stenosis. No aneurysm. Left middle cerebral artery: No occlusion or significant stenosis. No aneurysm. Left anterior cerebral artery: No occlusion or significant stenosis. No aneurysm. POSTERIOR CIRCULATION: Right vertebral artery: Decreased flow signal in the right vertebral artery is likely artifactual. Left vertebral artery: Decreased flow signal in the left vertebral artery is likely artifactual. 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 Other vasculature: Patent bilateral posterior communicating arteries. -Superior sagittal sinus: Patent. Straight sinus: Patent. Internal cerebral and cortical veins: Unremarkable as visualized. Transverse sinuses: Patent. Sigmoid sinuses: Patent. Internal jugular veins: Visualized segment patent. -Out of TPA window, clot retrieval assessment cannot be performed as she cannot have a contrast -Yesterday there were plans on doing a CT angiogram of the head and neck, however patient's family adamantly refused, they were told by previous physician that she would if she were to have any contrast dye -Compared to yesterday, she does withdraw from pain which is new Plan: -Monitor in ICU -Neurochecks -Telemetry monitoring -Monitor for aspiration events, aspiration pneumonia, monitor for fevers, daily chest x-rays -We will consider NG tube, tube feeds based on clinical progress -Aspirin rectally -Statin when she can swallow -Keep her flat -Normal saline 150 cc an hour -Allow for permissive hypertension -echocardiogram: pending -Dr. 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
--- NOTE | 2020-05-30 13:41 | PC.NURSE ---
Allergies verified with primary care doctor, this chart now up to date.
[2020-05-30] MEDS: enoxaparin 40 mg/0.4 mL Syringe SUBCUT (20:24)
[2020-05-30 20:33] LABS: Glucose Point of Care 240 mg/dL (70-110)
--- NOTE | 2020-05-30 21:54 | PC.NURSE ---
called this evening. Update given on patient's condition.
--- NOTE | 2020-05-30 22:00 | PC.NURSE ---
Patient BG spot checked. 240 resulted. MD examination supervisor notified. No new orders given at this time.
[2020-05-31] VITALS (74 sets, daily range): BP systolic 102–150; BP diastolic 58–95; PULSE 80–117; RESP 10–32; TEMP 36.6–37.2; O2SAT 90–100
[2020-05-31] MEDS: sodium chloride 0.9% 1,000 ML 150 ML IV ×3 (04:28→19:52)
[2020-05-31] MEDS: ketorolac 30 mg/mL INJ 15 MG IVP (04:46)
[2020-05-31 05:08] LABS: Basophils % 0.2 %; Hematocrit 43.5 % (37.0-47.0); Hemoglobin 14.2 g/dL (11.5-15.3); Lymphocytes # 1.2 10^3/uL (0.8-4.8); Lymphocytes % 10.1 %; Mean Corpuscular HGB Conc 32.6 g/dL (30.0-36.0); Mean Corpuscular Hemoglobin 30.1 pg (28.0-34.0); Mean Corpuscular Volume 92.4 fL (81-99); Mean Platelet Volume 10.5 fL (7.4-10.4); Monocytes # 0.5 10^3/uL (0.2-0.9); Monocytes % 4.1 %; Neutrophils # 10.34 10^3/uL (1.8-7.7); Neutrophils % 85.3 %; Nucleated Red Blood Cells % 0 %; Platelet Count 202 10^3/cmm (130-400); Red Blood Count 4.71 10^6/uL (4.1-5.3); Red Cell Distribution Width 13.5 % (12.1-15.1); White Blood Count 12.1 10^3/uL (4.0-10.0)
[2020-05-31 05:43] LABS: Albumin Level 3.4 g/dL (3.5-5.2); Alkaline Phosphatase 100 IU/L (35-105); Blood Urea Nitrogen 7 mg/dL (8-23); Calcium 9.2 mg/dL (8.5-10.5); Carbon Dioxide 23 mmol/L (22-29); Chloride 107 mmol/L (98-107); Glucose 118 mg/dL (65-115); Magnesium 2.2 mg/dL (1.7-2.3); Osmolality Calculated 291 mOsm/kg (285-295); Phosphorus 2.5 mg/dL (2.5-4.5); Sodium 141 mmol/L (136-145); Total Bilirubin 0.4 mg/dL (0.15-1.2); Total Protein 6.4 g/dL (6.6-8.7)
[2020-05-31 06:00] LABS: Alanine Aminotransferase 10 U/L (0-33); Anion Gap 15.2 (5-19); Aspartate Amino Transferase 25 U/L (0-32); Potassium 4.2 mmol/L (3.5-5.1)
--- NOTE | 2020-05-31 06:31 | PC.NURSE ---
Shift Summary: Patient has shown improvement overnight. Has been more actively moving in the bed. Bed alarm on. At one point she began pulling at tubes/lines, and pulled out her locked IV during episode. Full bath/bed change given, and at this point patient woke up enough to open her eyes when asked to do so. She has also verbalized that she was in pain, and that she did not know where she was by answering yes and no when asked specifically. Notable difference in strength between left and right extremities. Lines and tubes have been concealed in hopes to distract patient from them, and stop pulling of them. One instance of pain that was controlled with a PRN Toradol order the MD commercial pest control technician gave overnight. SPO2 remained 90-94%. A-febrile. 1450 u/o. NS @150mL/hr.
--- NOTE | 2020-05-31 07:00 | XRR_ITS ---
PROCEDURE INFORMATION: Exam: XR Chest, 1 View Exam date and time: 05/31/2020 12:00 AM Age: 69 years old Clinical indication: Shortness of breath; Additional info: SOB TECHNIQUE: Imaging protocol: XR of the chest Views: 1 view. COMPARISON: CR XR chest 1V portable [id number] 05/29/2020 2:38 PM FINDINGS: Lungs: There is patchy opacity in the left base which may represent some atelectasis or lower lobe pneumonia. This has not significantly changed. Pleural space: Unremarkable. No pleural effusion. No pneumothorax. Heart/Mediastinum: Heart is normal for the AP rotated projection. Bones/joints: Unremarkable. Soft tissues: Surgical clips are present in the right axilla. XR/XR chest 1V portable [id number] IMPRESSION: Stable patchy left basilar opacity similar to previous study may represent basilar atelectasis or pneumonia.
[2020-05-31] MEDS: famotidine 20 mg/2 mL INJ IVP (07:52)
--- NOTE | 2020-05-31 09:59 | XRR_ITS ---
PROCEDURE INFORMATION: Exam: XR Chest, 1 View Exam date and time: 05/31/2020 11:05 AM Age: 69 years old Clinical indication: Device placement; Ng tube; Additional info: Ng tube placement TECHNIQUE: Imaging protocol: XR of the chest Views: 1 view. COMPARISON: CR (CHEST, ) 05/31/2020 6:20 AM FINDINGS: Tubes, catheters and devices: A nasogastric feeding tube is present with the tip about 5 cm below the level of the diaphragm in the projection of the stomach fundus. Further advancement several cm into the stomach is advised. Lungs: Again noted is patchy atelectasis or consolidation in the left base. This is unchanged.. Pleural space: Unremarkable. No pleural effusion. No pneumothorax. Heart/Mediastinum: Unremarkable. No cardiomegaly. Bones/joints: Unremarkable. XR/XR chest 1V portable [id number] IMPRESSION: The tip of the nasogastric feeding tube is only about 5 cm below the diaphragm and further advancement into the stomach is advised.
--- NOTE | 2020-05-31 10:39 | PM.PN ---
Subjective Subjective: Interval history: This morning patient was examined, she is a bit more alert, she withdraws from pain, has spontaneous movement of upper extremities, does not really move her lower extremities, does withdraw from the light this morning, refuses to open her eyes, bit more responsive, saturating in high 90s on 2 L, no acute A. fib events overnight, Vitals/I&O/Wt Last Vital Signs Temp 98.9 F 05/31/20 04:10 Pulse 90 05/31/20 10:06 Resp 15 05/31/20 08:00 BP 135/70 05/31/20 08:00 Pulse Ox 93 05/31/20 08:29 05/30/20 05/31/20 05/31/20 22:59 06:59 14:59 Intake Total 1587.5 / 1587.5 942.5 / 2530.0 Output Total 1450 / 1750 Balance 1587.5 / 1287.5 -507.5 / 780.0 Weight last 48 hrs Weight 81.647 kg Physical Exam Const: COMMON NORMALS: no acute distress; negative for patient oriented x3 and negative for alert NUTRITIONAL APPEARANCE: obese ORIENTATION/CONSCIOUSNESS: Yes patient obtunded; not awake, not oriented to person, not oriented to place and not oriented to time HENMT: COMMON NORMALS: normocephalic HEAD & SCALP: normocephalic Eye: GENERAL EYE: appearance normal, both eyes and all related structures OTHER: Pupils round, equal, reactive to light Neck/C-Spine: COMMON NORMALS: full ROM, no lymphadenopathy, no JVD and Thyroid normal THYROID: Thyroid normal Lymph: LYMPHATIC: no lymphadenopathy noted Resp: COMMON NORMALS: normal respiratory effort, No retractions and No use of accessory muscles AUSCULTATION: wheezes Cardio: COMMON NORMALS: no JVD, regular rate, regular rhythm, S1 normal heart sound present, S2 normal heart sound present, No gallops present (Cardio), No clicks present (Cardio) and No murmurs present (Cardio) RATE: regular rate RHYTHM: regular rhythm HEART SOUNDS: S1 normal heart sound present and S2 normal heart sound present GI: COMMON NORMALS: Normal to inspection, nondistended, normoactive bowel sounds present, Soft to palpation, non-tender and No hepatosplenomegaly present PALPATION: Yes Soft to palpation and Yes No hepatosplenomegaly present Extremity: COMMON NORMALS: normal to inspection, full ROM and no pedal edema Neuro: COMMON NORMALS: negative for patient oriented x3 SENSORIUM/ORIENTATION: No alert, No oriented to person, No oriented to place, No oriented to time and Yes obtunded OTHER: Does not follow neurologic testing No extensor or flexor posturing Does withdraw from pain more today Does turn away from the light more today Does spontaneously move her upper extremities to reposition Does not move lower extremities Pupils equal round reactive to light Psych: COMMON NORMALS: mental status grossly normal, Normal thought process present and cooperative THOUGHT PROCESS: Normal thought process present Urinary Catheter Management^: Olson: Cath Placed During This Visit: yes Reason for Continuing Indwelling Catheter: Accurate Measurement of Urinary Output in Critically Ill Patients Urinary Catheter Date of Insertion: 05/29/20 Urinary Catheter Time of Insertion: 21:20 Data : 05/31/20 04:14 05/31/20 04:14 A&P Assessment and plan (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 Mild scattered regions of increased T2 FLAIR signal in supratentorial periventricular and subcortical white matter and within the anterior temporal lobes. Diffusion with ADC dropout in the bilateral paramedian thalami. No intracranial hemorrhage. Cerebral ventricles: Normal. No ventriculomegaly. Bones/joints: Unremarkable. Paranasal sinuses: Normal as visualized. No acute sinusitis. Mastoid air cells: Normal as visualized. No mastoid effusion. Orbits: Unremarkable. Soft tissues: Unremarkable. -ANTERIOR CIRCULATION: Right internal carotid artery: Intracranial segment is patent with no significant stenosis. No aneurysm. Right middle cerebral artery: No occlusion or significant stenosis. No aneurysm. Right anterior cerebral artery: No occlusion or significant stenosis. No aneurysm. Left internal carotid artery: Intracranial segment is patent with no significant stenosis. No aneurysm. Left middle cerebral artery: No occlusion or significant stenosis. No aneurysm. Left anterior cerebral artery: No occlusion or significant stenosis. No aneurysm. POSTERIOR CIRCULATION: Right vertebral artery: Decreased flow signal in the right vertebral artery is likely artifactual. Left vertebral artery: Decreased flow signal in the left vertebral artery is likely artifactual. 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 Other vasculature: Patent bilateral posterior communicating arteries. -Superior sagittal sinus: Patent. Straight sinus: Patent. Internal cerebral and cortical veins: Unremarkable as visualized. Transverse sinuses: Patent. Sigmoid sinuses: Patent. Internal jugular veins: Visualized segment patent. -Out of TPA window, clot retrieval assessment cannot be performed as she cannot have a contrast -On Tuesday there were plans on doing a CT angiogram of the head and neck, however patient's family adamantly refused, they were told by previous physician that she would if she were to have any contrast dye -echo 05/30/2020 shows: -1-Normal left ventricular size, systolic function ,left ventricular ejection fraction is estimated at 60 %. No regional wall motion abnormalities. Normal left ventricular wall thickness. Normal diastolic filling pattern. 2-No significant valve abnormalities. 4-There is no pericardial effusion. 5-Pulmonary artery systolic pressure is within normal limits. -Compared to yesterday, does withdraw more for pain, does refuses to open her eyes at times, pupils equally round reactive to light Plan: -Monitor in ICU -Neurochecks -Telemetry monitoring -On Primaxin for aspiration pneumonia -We will place NG/Dobbhoff tube for tube feedings -Aspirin -Statin -Keep her flat -Normal saline 100 cc an hour, will stop after Dobbhoff placed, and getting free water flushes -Allow for permissive hypertension, treat if systolic blood pressure greater than 220 or diastolic greater than 120 -Dr. 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 Status: Acute (4) Diastolic dysfunction: Status: Acute (5) HTN (hypertension): Status: Acute Qualifiers: Hypertension type: essential hypertension Qualified Code(s): I10 - Essential (primary) hypertension (6) Aspiration pneumonia: -White blood cell count 12.1 -Chest x-ray shows stable patchy left basilar opacity -Does have more wheezing on exam -Start Primaxin for aspiration pneumonia coverage Status: Acute Attestations Medical Necessity Statement*: Patient requires hospitalization for bilateral thalamic stroke, aspiration pneumonia Time Spent in Patient Care: Greater than 35 minutes Coding Level of Care Code 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
[2020-05-31 10:59] LABS: Creatine Phosphokinase 280 U/L (26-192)
[2020-05-31] MEDS: levothyroxine 50 mcg Tablet PO (12:14)
[2020-05-31] MEDS: aspirin 325 mg Tablet PO (12:14)
[2020-05-31] MEDS: famotidine 20 mg Tablet PO ×2 (12:15→17:35)
--- NOTE | 2020-05-31 13:42 | P.PN_ITS ---
Subjective Subjective: Interval history: The nurse reports that the patient has been vigorously active, trying to pull out her Dobbhoff feeding tube and moving all 4 extremities well. She has paid attention to light versus dark and has made sounds but not responded directly to staff other than fighting. In the room today she appears comfortable. Vitals/I&O/Wt Last Vital Signs Temp 98.9 F 05/31/20 04:10 Pulse 87 05/31/20 12:00 Resp 20 H 05/31/20 12:00 BP 140/86 05/31/20 12:00 Pulse Ox 92 05/31/20 12:00 05/30/20 05/31/20 05/31/20 22:59 06:59 14:59 Intake Total 1587.5 / 1587.5 942.5 / 2530.0 1000 / 1000 Output Total 1450 / 1750 1600 / 1600 Balance 1587.5 / 1287.5 -507.5 / 780.0 -600 / -600 Weight last 48 hrs Weight 180 lb Physical Exam Narrative: EXAM NARRATIVE: She opened her eyes after 5 minutes of stimulation. She did not regard the examiner. She did not follow commands. She said OW. Facial movements symmetric and vigorous. She moves all 4 extremities vigorously with minimal stimulation. Cardiovascular: S1 and S2 normal without murmur or gallop. Regular rate and rhythm. 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 I am in agreement with the radiologist that this most likely represents infarction of the artery of [place]her[place], which is a variant that allows bilateral infarction of the thalami from occlusion of this single artery from the top of the basilar/posterior cerebral artery. 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 Continue IV fluids, aspirin and at this point we can add Plavix since she has an endotracheal tube. Initiate statin as well. Continue pituitary replacement and it might be helpful to increase her levothyroxine slightly. I would not treat her blood pressure at any level unless she has evidence of endorgan failure such as congestive heart failure or renal failure. Thanks for allowing me to assist with her care. Status: Acute (2) Aspiration pneumonia: Status: Acute (3) History of surgical removal of pituitary gland: Status: Acute Attestations Medical Necessity Statement*: Acute stroke and coma Coding Level of Care Code Acute [employer] for g Fwd Diagnoses Top of basilar syndrome G45.0 Aspiration pneumonia J69.0 History of surgical removal of pituitary gland Z98.890; E89.3
[2020-05-31] MEDS: clopidogrel 75 mg Tablet PO (14:21)
--- NOTE | 2020-05-31 15:03 | PC.NURSE ---
Dr davis here sat pt up for swallow study not passed, chocking noted speech slurred but understandable aware of place ect. Dobhoff intact and to tube feeding at 20 cchr .. hob elevated sightly to about 30 degrees. moves all extremities at this time
[2020-05-31] MEDS: dexamethasone 4 mg Tablet 1 MG PO (15:46)
--- NOTE | 2020-05-31 19:15 | PC.NURSE ---
Report received, care assumed. Monitor alarms, plan of care et previous orders reviewed. Bedside assessment performed with day shift RN. Upon entering the room patient is laying in bed spontaneously opening eyes. Patient responds to name et looks at RNs upon entering. Patient's speech is very mumbled et most is too slurred to understand. Patient was able to state name but is not able to answer other orientation questions correctly. Patient's comprehension of commands/ questions asked appears to be impaired. RN has to demonstrate actions for patient to follow. Patient is able to lift both upper et lower extremities off the bed et hold for the duration of exam (10 seconds for arms et 5 seconds for legs). Sensation appears to be intact. Visual finn appear to be intact. Patient has feeding tube to right nare, placement verified per x-ray. Jevity 1.2 infusing at 20 ml/hr. Bilateral breath sounds per auscultation. Abdomen is large, round, tender in the right upper quadrant with hypoactive bowel sounds. Olson catheter to dependent drainage. Please see physical assessment et vital sign flowsheet for details.
--- NOTE | 2020-05-31 19:15 | PC.NURSE ---
Addendum to 1915 assuming care note: Bilateral soft wrist restraints present.
[2020-05-31] MEDS: enoxaparin 40 mg/0.4 mL Syringe SUBCUT (19:52)
[2020-05-31] MEDS: atorvastatin 40 mg Tablet 80 MG PO (21:53)
[2020-06-01] VITALS (25 sets, daily range): BP systolic 105–159; BP diastolic 67–109; PULSE 77–109; RESP 12–29; TEMP 37.1–37.2; O2SAT 93–97
--- NOTE | 2020-06-01 02:00 | PC.NURSE ---
Bilateral SCDs placed.
[2020-06-01 06:57] LABS: Procalcitonin 0.09 ng/mL (0-0.5)
--- NOTE | 2020-06-01 07:00 | XRR_ITS ---
PROCEDURE INFORMATION: Exam: XR Chest, 1 View Exam date and time: 06/01/2020 5:24 AM Age: 69 years old Clinical indication: Dyspnea; Additional info: SOB TECHNIQUE: Imaging protocol: XR of the chest Views: 1 view. COMPARISON: CR (CHEST, ) 05/31/2020 11:03 AM FINDINGS: Tubes, catheters and devices: A nasogastric feeding tube is present and extends into the course of the duodenum. Lungs: Stable patchy atelectasis is present in the left base. Remaining lung finn are clear. Pleural space: Unremarkable. No pleural effusion. No pneumothorax. Heart/Mediastinum: Unremarkable. No cardiomegaly. Bones/joints: Unremarkable. Soft tissues: There are surgical clips in the right axilla. XR/XR chest 1V portable [id number] IMPRESSION: 1. The feeding tube extends into the duodenum. 2. Stable patchy left basilar atelectasis.
[2020-06-01 07:09] LABS: Alanine Aminotransferase 9 U/L (0-33); Alkaline Phosphatase 83 IU/L (35-105); Anion Gap 13.4 (5-19); Aspartate Amino Transferase 14 U/L (0-32); Blood Urea Nitrogen 8 mg/dL (8-23); C Reactive Protein 31.4 mg/L (0.0-4.9); Calcium 8.6 mg/dL (8.5-10.5); Carbon Dioxide 25 mmol/L (22-29); Chloride 106 mmol/L (98-107); Creatine Phosphokinase 129 U/L (26-192); Globulin 2.3 g/dL (1.3-4.6); Glucose 118 mg/dL (65-115); Osmolality Calculated 291 mOsm/kg (285-295); Potassium 3.4 mmol/L (3.5-5.1); Sodium 141 mmol/L (136-145); Total Bilirubin 0.3 mg/dL (0.15-1.2); Total Protein 5.3 g/dL (6.6-8.7)
[2020-06-01] MEDS: potassium chloride oral liq 20 mEq/15 mL UDC 40 MEQ PO (08:10)
[2020-06-01] MEDS: famotidine 20 mg Tablet PO ×2 (08:11→17:17)
[2020-06-01] MEDS: aspirin 81 mg EC Tablet PO (08:11)
[2020-06-01] MEDS: dexamethasone 4 mg Tablet 1 MG PO (08:11)
[2020-06-01] MEDS: levothyroxine 50 mcg Tablet PO (08:11)
[2020-06-01] MEDS: clopidogrel 75 mg Tablet PO (08:11)
--- NOTE | 2020-06-01 10:30 | PM.PN ---
Subjective Subjective: Interval history: Yesterday afternoon, patient actually was sitting up in bed with the help of nursing staff, she followed commands, she was able to squeeze my fingers, open up her eyes, nod her head that she understood me, somnolent, but much more responsive This morning she is a bit somnolent, she is sleeping, she swats me away when I am trying to awaken her, pupils are equal round reactive to light, she spontaneous movement of all upper extremities Vitals/I&O/Wt Last Vital Signs Temp 98.7 F 06/01/20 04:00 Pulse 77 06/01/20 09:03 Resp 23 H 06/01/20 08:00 BP 125/68 06/01/20 08:00 Pulse Ox 97 06/01/20 09:03 05/31/20 06/01/20 06/01/20 22:59 06:59 14:59 Intake Total 1150 / 2350 569 / 2919 Output Total 1999 / 3600 1250 / 4850 Balance -850 / -1250 -681 / -1931 Physical Exam Const: COMMON NORMALS: no acute distress and alert NUTRITIONAL APPEARANCE: obese ORIENTATION/CONSCIOUSNESS: Yes awake, Yes confused and Yes patient obtunded; not oriented to person, not oriented to place and not oriented to time HENMT: COMMON NORMALS: normocephalic HEAD & SCALP: normocephalic Eye: GENERAL EYE: appearance normal, both eyes and all related structures OTHER: Pupils round, equal, reactive to light Neck/C-Spine: COMMON NORMALS: full ROM, no lymphadenopathy, no JVD and Thyroid normal THYROID: Thyroid normal Lymph: LYMPHATIC: no lymphadenopathy noted Resp: COMMON NORMALS: normal respiratory effort, No retractions and No use of accessory muscles AUSCULTATION: wheezes Cardio: COMMON NORMALS: no JVD, regular rate, regular rhythm, S1 normal heart sound present, S2 normal heart sound present, No gallops present (Cardio), No clicks present (Cardio) and No murmurs present (Cardio) RATE: regular rate RHYTHM: regular rhythm HEART SOUNDS: S1 normal heart sound present and S2 normal heart sound present GI: COMMON NORMALS: Normal to inspection, nondistended, normoactive bowel sounds present, Soft to palpation, non-tender and No hepatosplenomegaly present PALPATION: Yes Soft to palpation and Yes No hepatosplenomegaly present Extremity: COMMON NORMALS: normal to inspection, full ROM and no pedal edema Neuro: SENSORIUM/ORIENTATION: Yes alert, No oriented to person, No oriented to place, No oriented to time and Yes somnolent OTHER: Does not follow neurologic testing No extensor or flexor posturing Does withdraw from pain, swats me away when I try to awaken her Does turn away from the light more today Does spontaneously move her upper extremities to reposition Does not move lower extremities Pupils equal round reactive to light Yesterday afternoon, was following some commands squeezing my fingers bilaterally, following me around the room, Has failed swallow eval yesterday afternoon Psych: COMMON NORMALS: mental status grossly normal, Normal thought process present and cooperative THOUGHT PROCESS: Normal thought process present Urinary Catheter Management^: Olson: Cath Placed During This Visit: yes Reason for Continuing Indwelling Catheter: Accurate Measurement of Urinary Output in Critically Ill Patients Urinary Catheter Date of Insertion: 05/29/20 Urinary Catheter Time of Insertion: 21:20 Data : 05/31/20 04:14 06/01/20 06:08 A&P Assessment and plan (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 Mild scattered regions of increased T2 FLAIR signal in supratentorial periventricular and subcortical white matter and within the anterior temporal lobes. Diffusion with ADC dropout in the bilateral paramedian thalami. No intracranial hemorrhage. Cerebral ventricles: Normal. No ventriculomegaly. Bones/joints: Unremarkable. Paranasal sinuses: Normal as visualized. No acute sinusitis. Mastoid air cells: Normal as visualized. No mastoid effusion. Orbits: Unremarkable. Soft tissues: Unremarkable. -ANTERIOR CIRCULATION: Right internal carotid artery: Intracranial segment is patent with no significant stenosis. No aneurysm. Right middle cerebral artery: No occlusion or significant stenosis. No aneurysm. Right anterior cerebral artery: No occlusion or significant stenosis. No aneurysm. Left internal carotid artery: Intracranial segment is patent with no significant stenosis. No aneurysm. Left middle cerebral artery: No occlusion or significant stenosis. No aneurysm. Left anterior cerebral artery: No occlusion or significant stenosis. No aneurysm. POSTERIOR CIRCULATION: Right vertebral artery: Decreased flow signal in the right vertebral artery is likely artifactual. Left vertebral artery: Decreased flow signal in the left vertebral artery is likely artifactual. 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 Other vasculature: Patent bilateral posterior communicating arteries. -Superior sagittal sinus: Patent. Straight sinus: Patent. Internal cerebral and cortical veins: Unremarkable as visualized. Transverse sinuses: Patent. Sigmoid sinuses: Patent. Internal jugular veins: Visualized segment patent. -Out of TPA window, clot retrieval assessment cannot be performed as she cannot have a contrast -On Tuesday there were plans on doing a CT angiogram of the head and neck, however patient's family adamantly refused, they were told by previous physician that she would if she were to have any contrast dye -echo 05/30/2020 shows: -1-Normal left ventricular size, systolic function ,left ventricular ejection fraction is estimated at 60 %. No regional wall motion abnormalities. Normal left ventricular wall thickness. Normal diastolic filling pattern. 2-No significant valve abnormalities. 4-There is no pericardial effusion. 5-Pulmonary artery systolic pressure is within normal limits. -Yesterday afternoon, much more alert, awake, following some commands, a bit drowsy this morning, swats nurse away when I try to examine her Plan: -Monitor in ICU -Neurochecks -Telemetry monitoring -On Primaxin for aspiration pneumonia -Dobbhoff placed for tube feedings, continue tube feeds, fluids at 100 cc an hour -Aspirin -Plavix -Statin -Keep head of bed at roughly 30 degrees, decrease risk of aspiration -Allow for permissive hypertension, treat if systolic blood pressure greater than 220 or diastolic greater than 120 -Dr. 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 Status: Acute (4) Diastolic dysfunction: Status: Acute (5) HTN (hypertension): Status: Acute Qualifiers: Hypertension type: essential hypertension Qualified Code(s): I10 - Essential (primary) hypertension (6) Aspiration pneumonia: -Chest x-ray shows stable patchy left basilar opacity -Does have more wheezing on exam -Start Primaxin for aspiration pneumonia coverage Status: Acute Attestations Medical Necessity Statement*: Patient requires hospitalization, i bilateral thalamic stroke, top of the basilar syndrome, aspiration pneumonia Time Spent in Patient Care: Greater than 35 minutes Critical Care Time: Critical Care Time (min): 35 Coding Level of Care Code Acute Educational Director for Chg Fwd Diagnoses Top of basilar syndrome G45.0 Secondary adrenal insufficiency E27.49 Central hypothyroidism E03.8 Diastolic dysfunction I51.89 HTN (hypertension) I10 Hypertension type: essential hypertension Aspiration pneumonia J69.0
--- NOTE | 2020-06-01 10:39 | PC.NURSE ---
large loose liquid bm gayle care and linen change done at this time
--- NOTE | 2020-06-01 11:06 | PC.NURSE ---
loose stool . linen change done and gayle care
--- NOTE | 2020-06-01 11:25 | PC.SOCIAL ---
Pg 2 IMM Explained to pt Pg 2 IMM. No questions voiced. Provided pt a copy & left on bedside table. Signed, dated, & timed a copy & placed in chart.
--- NOTE | 2020-06-01 19:00 | PC.NURSE ---
Report received, care assumed. Monitor alarms, plan of care et previous orders reviewed. Patient currently laying in be with HOB at 30 degrees. Patient currently is resting with eyes closed but will open eyes whenever asked. She does require repeated verbal stimulation to keep eyes open et answer questions/ participate in exam, see neurological exam for details. Feeding tube to right nare, placement confirmed tube is in the duodem. Jevity 1.2 mary infusing at 40 mL/hr. Bilateral breath sounds per auscultation. Abdomen large round non-tender with positive bowel sounds. Olson catheter to dependent drainage secured with a stat lock on right leg. Bilateral lower extremity SCDs are currently off. Please see physical assessment et vital sign flowsheets for details.
[2020-06-01] MEDS: atorvastatin 40 mg Tablet 80 MG PO (20:17)
[2020-06-01] MEDS: sodium chloride 0.9% 1,000 ML 150 ML IV (20:17)
[2020-06-01] MEDS: enoxaparin 40 mg/0.4 mL Syringe SUBCUT (20:18)
--- NOTE | 2020-06-01 21:02 | PC.NURSE ---
Tube feeding tubing et bottle replaced. TF running at 40 mL/hr. No residual. Tube flushed with 50 mL.
[2020-06-02] VITALS (20 sets, daily range): BP systolic 104–156; BP diastolic 62–98; PULSE 73–110; RESP 14–27; TEMP 36.8–37.3; O2SAT 91–97
[2020-06-02 05:50] LABS: Alanine Aminotransferase 8 U/L (0-33); Alkaline Phosphatase 84 IU/L (35-105); Blood Urea Nitrogen 8 mg/dL (8-23); Calcium 8.5 mg/dL (8.5-10.5); Carbon Dioxide 27 mmol/L (22-29); Chloride 106 mmol/L (98-107); Globulin 2.1 g/dL (1.3-4.6); Glucose 128 mg/dL (65-115); Osmolality Calculated 292 mOsm/kg (285-295); Phosphorus 2.9 mg/dL (2.5-4.5); Sodium 141 mmol/L (136-145); Total Bilirubin 0.4 mg/dL (0.15-1.2); Total Protein 5.1 g/dL (6.6-8.7)
[2020-06-02 05:55] LABS: Anion Gap 12.1 (5-19); Potassium 4.1 mmol/L (3.5-5.1)
[2020-06-02 05:56] LABS: Aspartate Amino Transferase 20 U/L (0-32)
[2020-06-02 08:23] LABS: Procalcitonin 0.05 ng/mL (0-0.5)
[2020-06-02 08:34] LABS: Creatine Phosphokinase 111 U/L (26-192)
--- NOTE | 2020-06-02 08:53 | PC.CHAP ---
Pastoral Care Encounter/Spiritual Assessment Type of Contact [] Declined reception agent visit [] Patient/Family/Request visit [] Outpatient visit [] Follow-up visit [] Physician referral [] Code/Alert [] Routine visit [] Staff referral [] Actively dying [] Patient sleeping [] Family support [] [] Out of room [] Palliative care [] [] Receiving care in room [] Pre-surgical visit [] Trauma [] Long length of stay [] ICU visit [] Other: Relational/Emotional Strength [] Patient feels connected with others/family/visitors/staff [] Distress [] Loneliness/isolation [] Abandonment Spirituality of Patient [] Person of Fabi [] Attends Synagogue of their Fabi [] Believes in Prayer [] Reads Bible or Advent materials [] There are Spiritual issues to be addressed Tobacco Stemmer Machine Interventions [x] Prayer [] Active listening [] Non-anxious presence [] Spiritual/emotional support [] Crisis/trauma care [] Spiritual counseling [] Bereavement support [] Provided bereavement packet [] Provided Bible/devotional materials [] Provided toy/stuffed animal, coloring book to patient or family member [] Provided Communion [] Anointing/[place] [] Salvation [x] Completed spiritual assessment [] Other: Impact on Illness or Injury [] Angry [] Fearful [] Anxious [] Often cries [] Exhaustion [] Unable to work [] Unable to attend nondenominational [] Unable to walk/stand [] Unable to read [] Unable to drive [] Unable to eat/drink [] Unable to sleep [] Unable to be with family [] Patient intubated [] Other: Summary Time spent with patient
[2020-06-02 09:07] LABS: C Reactive Protein 31.7 mg/L (0.0-4.9)
[2020-06-02] MEDS: clopidogrel 75 mg Tablet PO (09:10)
[2020-06-02] MEDS: aspirin 81 mg EC Tablet PO (09:10)
[2020-06-02] MEDS: dexamethasone 4 mg Tablet 1 MG PO (09:10)
[2020-06-02] MEDS: levothyroxine 50 mcg Tablet PO (09:10)
[2020-06-02] MEDS: famotidine 20 mg Tablet PO ×2 (09:11→17:47)
[2020-06-02] MEDS: sodium chloride 0.9% 1,000 ML 150 ML IV (09:12)
[2020-06-02 10:40] LABS: Basophils % 0.3 %; Eosinophils # 0.1 10^3/uL (0.0-0.8); Eosinophils % 1.1 %; Hematocrit 42.4 % (37.0-47.0); Hemoglobin 13.3 g/dL (11.5-15.3); Lymphocytes # 1.4 10^3/uL (0.8-4.8); Lymphocytes % 20.1 %; Mean Corpuscular HGB Conc 31.4 g/dL (30.0-36.0); Mean Corpuscular Hemoglobin 29.6 pg (28.0-34.0); Mean Corpuscular Volume 94.4 fL (81-99); Mean Platelet Volume 10.2 fL (7.4-10.4); Monocytes # 0.5 10^3/uL (0.2-0.9); Monocytes % 7.4 %; Neutrophils # 4.98 10^3/uL (1.8-7.7); Neutrophils % 70.7 %; Nucleated Red Blood Cells % 0 %; Platelet Count 163 10^3/cmm (130-400); Red Blood Count 4.49 10^6/uL (4.1-5.3); Red Cell Distribution Width 14.2 % (12.1-15.1); White Blood Count 7.1 10^3/uL (4.0-10.0)
--- NOTE | 2020-06-02 14:22 | P.PN_ITS ---
Subjective Subjective: Interval history: seen this morning at ~11AM, patient noted to be sonolent. does not open eyes to calling name, however odalis did follow commands for RN, moved toes and gripped fingers. Failing bedside dysphagia evaluations Medications: Reviewed: Yes Vitals/I&O/Wt Last Vital Signs Temp 99.1 F 06/02/20 04:00 Pulse 84 06/02/20 12:00 Resp 21 H 06/02/20 12:00 BP 118/63 06/02/20 12:00 Pulse Ox 96 06/02/20 12:00 06/01/20 06/02/20 06/02/20 22:59 06:59 14:59 Intake Total 280 / 480 2033 / 2513 367 / 367 Output Total 1645 / 1645 Balance 280 / 480 388 / 868 367 / 367 Weight last 48 hrs Weight 87.317 kg Physical Exam Narrative: EXAM NARRATIVE: GEN:Somnolent, does not wake to calling name or touching, non verbal CVS: S1S2 N RS: CTA B/L anteriorly Abd: Soft, nt/nd , bs+ Urinary Catheter Management^: Olson: Cath Placed During This Visit: yes Reason for Continuing Indwelling Catheter: Accurate Measurement of Urinary Output in Critically Ill Patients Urinary Catheter Date of Insertion: 05/29/20 Urinary Catheter Time of Insertion: 21:20 Data : 06/02/20 10:33 06/02/20 04:56 A&P Assessment and plan (1) Top of basilar syndrome: -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 daily Status: Acute (4) Diastolic dysfunction: Status: Acute (5) HTN (hypertension): Status: Acute Qualifiers: Hypertension type: essential hypertension Qualified Code(s): I10 - Essential (primary) hypertension (6) Aspiration pneumonia: -Chest x-ray shows stable patchy left basilar opacity -Does have more wheezing on exam -Start Primaxin for aspiration pneumonia coverage Status: Acute Attestations Medical Necessity Statement*: need for ongoing neuro monitoring given fluctuation in mentation , swallow eval Coding Level of Care Code Acute Knit Goods Washer for Chg Fwd Diagnoses Top of basilar syndrome G45.0 Secondary adrenal insufficiency E27.49 Central hypothyroidism E03.8 Diastolic dysfunction I51.89 HTN (hypertension) I10 Hypertension type: essential hypertension Aspiration pneumonia J69.0
--- NOTE | 2020-06-02 18:16 | PC.NURSE ---
Report called to Nel Osborne RN. No further questions. notified during visiting hours of transfer to floor.
[2020-06-02] MEDS: enoxaparin 40 mg/0.4 mL Syringe SUBCUT (21:46)
[2020-06-02] MEDS: atorvastatin 40 mg Tablet 80 MG PO (21:47)
[2020-06-02] MEDS: sodium chloride 0.9% 1,000 ML 125 ML IV (23:12)
[2020-06-03] VITALS (8 sets, daily range): BP systolic 119–131; BP diastolic 75–83; PULSE 70–101; RESP 17–18; TEMP 36.4–36.8; O2SAT 91–97
[2020-06-03 06:00] LABS: Procalcitonin 0.06 ng/mL (0-0.5)
[2020-06-03 06:04] LABS: C Reactive Protein 37.6 mg/L (0.0-4.9)
[2020-06-03 06:12] LABS: Creatine Phosphokinase 58 U/L (26-192)
[2020-06-03] MEDS: sodium chloride 0.9% 1,000 ML 125 ML IV (08:01)
--- NOTE | 2020-06-03 09:01 | PC.CHAP ---
Pastoral Care Encounter/Spiritual Assessment Type of Contact [] Declined ignition expert visit [] Patient/Family/Request visit [] Outpatient visit [] Follow-up visit [] Physician referral [] Code/Alert [] Routine visit [] Staff referral [] Actively dying [] Patient sleeping [] Family support [] [] Out of room [] Palliative care [] [] Receiving care in room [] Pre-surgical visit [] Trauma [] Long length of stay [] ICU visit [] Other: Relational/Emotional Strength [] Patient feels connected with others/family/visitors/staff [] Distress [] Loneliness/isolation [] Abandonment Spirituality of Patient [] Person of Fabi [] Attends Taoist of their Fabi [] Believes in Prayer [] Reads Bible or Jain materials [] There are Spiritual issues to be addressed Gas Producer Interventions [] Prayer [] Active listening [] Non-anxious presence [] Spiritual/emotional support [] Crisis/trauma care [] Spiritual counseling [] Bereavement support [] Provided bereavement packet [] Provided Bible/devotional materials [] Provided toy/stuffed animal, coloring book to patient or family member [] Provided Communion [] Anointing/[place] [] Salvation [] Completed spiritual assessment [] Other: Impact on Illness or Injury [] Angry [] Fearful [] Anxious [] Often cries [] Exhaustion [] Unable to work [] Unable to attend rastafari [] Unable to walk/stand [] Unable to read [] Unable to drive [] Unable to eat/drink [] Unable to sleep [] Unable to be with family [] Patient intubated [] Other: Summary Time spent with patient
--- NOTE | 2020-06-03 09:01 | PC.CHAP ---
Pastoral Care Encounter/Spiritual Assessment Type of Contact [] Declined variety saw operator visit [] Patient/Family/Request visit [] Outpatient visit [] Follow-up visit [] Physician referral [] Code/Alert [] Routine visit [] Staff referral [] Actively dying [] Patient sleeping [] Family support [] [] Out of room [] Palliative care [] [] Receiving care in room [] Pre-surgical visit [] Trauma [] Long length of stay [] ICU visit [] Other: Relational/Emotional Strength [] Patient feels connected with others/family/visitors/staff [] Distress [] Loneliness/isolation [] Abandonment Spirituality of Patient [] Person of Fabi [] Attends Presybeterian of their Fabi [] Believes in Prayer [] Reads Bible or Orthodoxy materials [] There are Spiritual issues to be addressed Candy Catcher Interventions [x] Prayer [x] Active listening [] Non-anxious presence [] Spiritual/emotional support [] Crisis/trauma care [] Spiritual counseling [] Bereavement support [] Provided bereavement packet [] Provided Bible/devotional materials [] Provided toy/stuffed animal, coloring book to patient or family member [] Provided Communion [] Anointing/[place] [] Salvation [x] Completed spiritual assessment [] Other: Impact on Illness or Injury [] Angry [] Fearful [] Anxious [] Often cries [] Exhaustion [] Unable to work [] Unable to attend pentecostalism [] Unable to walk/stand [] Unable to read [] Unable to drive [] Unable to eat/drink [] Unable to sleep [] Unable to be with family [] Patient intubated [] Other: Summary patient talking Time spent with patient 10 min
[2020-06-03] MEDS: dexamethasone 4 mg Tablet 1 MG PO (10:33)
[2020-06-03] MEDS: levothyroxine 50 mcg Tablet PO (10:33)
[2020-06-03] MEDS: clopidogrel 75 mg Tablet PO (10:33)
[2020-06-03] MEDS: aspirin 81 mg EC Tablet PO (10:34)
[2020-06-03] MEDS: famotidine 20 mg Tablet PO ×2 (10:34→18:29)
--- NOTE | 2020-06-03 10:49 | PC.SOCIAL ---
IMM Update Pg. 2 of IMM updated, initialed, dated, and timed and placed in chart. Copy left at bedside.
--- NOTE | 2020-06-03 16:32 | PC.NURSE ---
patient's came to nurses station and stated Shruthi Arredondo [phone] can be on the list of contacts and ok to talk to her about patient's care.
--- NOTE | 2020-06-03 16:39 | P.PN_ITS ---
Subjective Subjective: Interval history: mentation better today compared to yesetrday, patient sitting up in bed, looking at TV, appears to be engaged with the same, responds to her name, unable to tell me her name herself however responds to Marjorie. States she is 73 and then 21 years old. Disoriented to time and place, apahsia persists. Swallow screen was perfromed, recommended dysphagia 1 diet w hich she appears to be tolerating currently. Pulled out her Dobhoff overnight. Partcipated with PT, able to take a few steps today Medications: Reviewed: Yes Vitals/I&O/Wt Last Vital Signs Temp 97.7 F 06/03/20 15:44 Pulse 93 06/03/20 15:44 Resp 18 06/03/20 15:44 BP 130/80 06/03/20 15:44 Pulse Ox 91 06/03/20 15:44 06/03/20 06/03/20 06/03/20 06:59 14:59 22:59 Intake Total 100 / 1838.0 1100 / 1100 Output Total 500 / 3350 Balance -400 / -1512.0 1100 / 1100 Weight last 48 hrs Weight 87.317 kg Physical Exam Narrative: EXAM NARRATIVE: GEN: Awake, more alert compared to exam yesterday CVS: S1S2 N RS: CTA B/L Abd: Soft, nt/nd , bs+ LOGISTICS SYSTEM ENGINEER: harm reduction worker fingers, lifts both upper extremities off the bed, wiggles toes, weakly lifts lower extremities, was able to participate with PT earlier today and took few steps with walker. 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 Passed swallow screen in the interim and now on dysphagia 1 diet , needs supervision and encouragement to swallow. Monitor calorie count over the next 24 hrs, if appears to be taking adequate po inatke, hold off on PEG for now. -Continue ASA, statin,Plavix -Continue Fluids for now at 125 cc/hr to allow adequate cerebral perfusion -Appreciate neurology recommendations -Lovenox for DVT prophylaxis Status: Acute (2) Secondary adrenal insufficiency: Continue Decadron 0.25 daily Status: Acute (3) Central hypothyroidism: Continue . levothyroxine 50 mcg daily Status: Acute (4) Diastolic dysfunction: Status: Acute (5) HTN (hypertension): Status: Acute Qualifiers: Hypertension type: essential hypertension Qualified Code(s): I10 - Essential (primary) hypertension (6) Aspiration pneumonia: -Chest x-ray shows stable patchy left basilar opacity -Does have more wheezing on exam -on Primaxin day 4/5 for aspiration pneumonia coverage Status: Acute Attestations Medical Necessity Statement*: Continued neuro monitoring, mental status fluctuating, appears improving today, calorie count on dysphagia diet to ascretain need for PEG Coding Level of Care Code Acute General Maintenance Engineer for Chg Fwd Diagnoses Top of basilar syndrome G45.0 Secondary adrenal insufficiency E27.49 Central hypothyroidism E03.8 Diastolic dysfunction I51.89 HTN (hypertension) I10 Hypertension type: essential hypertension Aspiration pneumonia J69.0
[2020-06-03] MEDS: enoxaparin 40 mg/0.4 mL Syringe SUBCUT (21:50)
[2020-06-04] VITALS (9 sets, daily range): BP systolic 93–142; BP diastolic 55–85; PULSE 73–96; RESP 17–18; TEMP 36.4–36.8; O2SAT 90–98
[2020-06-04] MEDS: sodium chloride 0.9% 1,000 ML 125 ML IV ×3 (02:31→18:05)
[2020-06-04 06:55] LABS: Basophils % 0.1 %; Eosinophils # 0.1 10^3/uL (0.0-0.8); Eosinophils % 1.2 %; Hematocrit 40.6 % (37.0-47.0); Lymphocytes # 1.4 10^3/uL (0.8-4.8); Mean Corpuscular Volume 93.5 fL (81-99); Mean Platelet Volume 10.4 fL (7.4-10.4); Monocytes # 0.5 10^3/uL (0.2-0.9); Monocytes % 7.2 %; Neutrophils # 5.39 10^3/uL (1.8-7.7); Nucleated Red Blood Cells % 0 %; Platelet Count 183 10^3/cmm (130-400); Red Blood Count 4.34 10^6/uL (4.1-5.3); Red Cell Distribution Width 14.1 % (12.1-15.1); White Blood Count 7.5 10^3/uL (4.0-10.0)
[2020-06-04 07:11] LABS: Alanine Aminotransferase 10 U/L (0-33); Albumin Level 3.1 g/dL (3.5-5.2); Alkaline Phosphatase 91 IU/L (35-105); Blood Urea Nitrogen 9 mg/dL (8-23); Calcium 8.9 mg/dL (8.5-10.5); Carbon Dioxide 25 mmol/L (22-29); Chloride 106 mmol/L (98-107); Globulin 2.8 g/dL (1.3-4.6); Glucose 94 mg/dL (65-115); Osmolality Calculated 286 mOsm/kg (285-295); Sodium 139 mmol/L (136-145); Total Bilirubin 0.5 mg/dL (0.15-1.2); Total Protein 5.9 g/dL (6.6-8.7)
[2020-06-04 07:12] LABS: Anion Gap 11.8 (5-19); Aspartate Amino Transferase 17 U/L (0-32); Potassium 3.8 mmol/L (3.5-5.1)
[2020-06-04] MEDS: dexamethasone 4 mg Tablet 1 MG PO (08:16)
[2020-06-04] MEDS: acetaminophen 325 mg Tablet 650 MG PO (08:17)
[2020-06-04] MEDS: levothyroxine 50 mcg Tablet PO (08:18)
[2020-06-04] MEDS: famotidine 20 mg Tablet PO ×2 (08:18→18:05)
[2020-06-04] MEDS: aspirin 81 mg EC Tablet PO (08:18)
[2020-06-04] MEDS: clopidogrel 75 mg Tablet PO (08:18)
--- NOTE | 2020-06-04 13:12 | PM.PN ---
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 Today she was sitting hunched over in a chair and was able to respond to my questions by nodding her head yes or no. She responded when I called her name and was able to make eye contact with me by lifting her head. She was unable to tell me her name or age, and mumbled an answer when I asked her about place. When I asked her if she's been able to walk, she nodded yes. I asked her if she was shaky as she walked and she nodded yes. Medications: Reviewed: Yes Vitals/I&O/Wt Last Vital Signs Temp 97.8 F 06/04/20 11:11 Pulse 73 06/04/20 11:11 Resp 18 06/04/20 11:11 BP 93/55 06/04/20 11:11 Pulse Ox 92 06/04/20 11:11 06/03/20 06/04/20 06/04/20 22:59 06:59 14:59 Intake Total 1100 / 2300 100 / 2400 1000 / 1000 Output Total 200 / 200 1900 / 2100 Balance 900 / 2100 -1800 / 300 1000 / 1000 Physical Exam Narrative: EXAM NARRATIVE: GEN: Awake, more alert compared to exam yesterday CVS: S1S2 N RS: CTA B/L Abd: Soft, nt/nd , bs+ COMMUNICATION SKILLS INSTRUCTOR: personal care service provider fingers, pushed both lower extremities against resistance, pulled both upper extremities against resistance Const: COMMON NORMALS: no acute distress and alert; negative for patient oriented x3 EXAM LIMITATIONS: altered mental status NUTRITIONAL APPEARANCE: obese ORIENTATION/CONSCIOUSNESS: Yes awake and Yes confused; not oriented to person, not oriented to place and not oriented to time HENMT: COMMON NORMALS: normocephalic and atraumatic HEAD & SCALP: normocephalic and atraumatic OTHER: Pinpoint pupils, minimally reactive to light Eye: COMMON NORMALS: negative for Equal, round and reactive pupils present, negative for EOMs intact bilaterally, conjunctivae normal and no scleral icterus GENERAL EYE: appearance normal, both eyes and all related structures and decreased light reflex CONJUNCTIVA: Yes conjunctivae normal PUPIL: No Equal, round and reactive pupils present EOM: Yes EOM abnormal DIRECT OPHTHALMOSCOPY: Yes decreased light reflex OTHER: Pinpoint pupils. Pt was unable to follow my finger or light with her eyes; however, she was able to move her L eye to the left. Her eyes were deviated down and to the right. Neck/C-Spine: COMMON NORMALS: full ROM, no lymphadenopathy, supple, no JVD and Thyroid normal THYROID: Thyroid normal Lymph: LYMPHATIC: no lymphadenopathy noted Chest: COMMONS NORMALS: normal inspection of the chest and normal palpation of entire chest wall Resp: COMMON NORMALS: normal respiratory effort, No retractions, No use of accessory muscles and clear to auscultation bilaterally AUSCULTATION: clear to auscultation bilaterally and wheezes Cardio: COMMON NORMALS: no JVD, regular rate, regular rhythm, S1 normal heart sound present, S2 normal heart sound present, No gallops present (Cardio), No clicks present (Cardio) and No murmurs present (Cardio) RATE: regular rate RHYTHM: regular rhythm HEART SOUNDS: S1 normal heart sound present and S2 normal heart sound present GI: COMMON NORMALS: Normal to inspection, nondistended, normoactive bowel sounds present, Soft to palpation, non-tender, No hepatosplenomegaly present and no masses PALPATION: Yes Soft to palpation and Yes No hepatosplenomegaly present Extremity: COMMON NORMALS: normal to inspection, full ROM and no pedal edema Neuro: COMMON NORMALS: no focal motor deficits; negative for patient oriented x3, negative for CN's II-XII intact bilaterally and negative for moves all extremities SENSORIUM/ORIENTATION: Yes alert, No oriented to person, No oriented to place and No oriented to time CRANIAL NERVES: Yes CN III (oculomotor) SPEECH: Total aphasia GAIT: Yes Unable to assess gait SENSORY EXAM: Yes extremities (normal) MONOFILAMENT EXAM PERFORMED: No MOTOR EXAM: 5/5 motor strength present throughout DEEP TENDON REFLEXES: Right patellar reflex intensity grade: 0 and Left patellar reflex intensity grade: 1+ PLANTAR REFLEX: downgoing: right, left and bilateral PUPIL EXAM: Pinpoint: bilateral and Fixed/non-reactive: bilateral OTHER: Pt was able to follow commands. Pt was unable to follow my finger or light with her eyes except for L eye, which was able to move to the left in her line of sight. She had to move her head in order to see me. All cranial nerves except CN V are not intact. I did not test CN IX or CN X, but she did pass the swallow screen yesterday and is currently on a dysphagia 1 diet. I was unable to test UE reflexes due to patient positioning. R patellar reflex was normal, L patellar reflex was +2. Pt was able to detect sensation in all 10 fingers. She was able to wiggle her toes and passively dorsiflex. 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 Cash Register Mechanic was consulted today for caloric intake needs. Monitor calorie count over the next 24 hrs. -Continue ASA, statin,Plavix -Continue Fluids for now at 125 cc/hr to allow adequate cerebral perfusion -Appreciate neurology recommendations -Lovenox for DVT prophylaxis Status: Acute (2) Secondary adrenal insufficiency: Continue Decadron 0.25 daily Status: Acute (3) Central hypothyroidism: Continue . levothyroxine 50 mcg daily Status: Acute (4) Diastolic dysfunction: see above Status: Acute (5) HTN (hypertension): see above Status: Acute Qualifiers: Hypertension type: essential hypertension Qualified Code(s): I10 - Essential (primary) hypertension (6) Aspiration pneumonia: -Chest x-ray shows stable patchy left basilar opacity -No wheezing on exam -on Primaxin day 5/ for aspiration pneumonia coverage Status: Acute Coding Level of Care Code Acute Guest Relations Agent for [facility] Fwd Exam Comprehensive Diagnoses Top of basilar syndrome G45.0 Secondary adrenal insufficiency E27.49 Central hypothyroidism E03.8 Diastolic dysfunction I51.89 HTN (hypertension) I10 Hypertension type: essential hypertension Aspiration pneumonia J69.0 Documented by User: Jennifer Bartlett MD 06/04/20 17:01 Physical Exam Urinary Catheter Management^: Olson: Cath Placed During This Visit: no Data : 06/04/20 06:44 06/04/20 06:44 A&P Additional A&P Information Overall appears to be improving today, understands most questions and answers appropriately yes and no. LE strength appears to b eimproving, particpitating with PT. Unable to formulate sentences. Attempting to write to communicate, however unable to write legible alphabet. Tolerating dysphagia diet, mortgage loan interviewer consult to estimate calorie requirements and dietary recommendations Attestations Medical Necessity Statement*: slowly improving post CVA, Family now agreebale to SNF, awaiting placement, ongoing nutrition assessment Coding Level of Care Code Acute Guest Relations Agent for [facility] Fwd Exam Comprehensive Diagnoses Top of basilar syndrome G45.0 Secondary adrenal insufficiency E27.49 Central hypothyroidism E03.8 Diastolic dysfunction I51.89 HTN (hypertension) I10 Hypertension type: essential hypertension Aspiration pneumonia J69.0
[2020-06-04] MEDS: enoxaparin 40 mg/0.4 mL Syringe SUBCUT (20:55)
[2020-06-05 04:19] VITALS: BP 131/71; PULSE 76; RESP 18; TEMP 36.4; O2SAT 91
[2020-06-05 05:31] LABS: Basophils % 0.4 %; Eosinophils # 0.1 10^3/uL (0.0-0.8); Eosinophils % 1.1 %; Hematocrit 41.9 % (37.0-47.0); Hemoglobin 12.9 g/dL (11.5-15.3); Lymphocytes # 1.6 10^3/uL (0.8-4.8); Lymphocytes % 18.6 %; Mean Corpuscular HGB Conc 30.8 g/dL (30.0-36.0); Mean Corpuscular Hemoglobin 29.5 pg (28.0-34.0); Mean Corpuscular Volume 95.7 fL (81-99); Mean Platelet Volume 10.7 fL (7.4-10.4); Monocytes # 0.5 10^3/uL (0.2-0.9); Monocytes % 5.9 %; Neutrophils # 6.12 10^3/uL (1.8-7.7); Neutrophils % 73.4 %; Nucleated Red Blood Cells % 0 %; Platelet Count 184 10^3/cmm (130-400); Red Blood Count 4.38 10^6/uL (4.1-5.3); Red Cell Distribution Width 14.1 % (12.1-15.1); White Blood Count 8.3 10^3/uL (4.0-10.0)
[2020-06-05 05:59] LABS: Alanine Aminotransferase 8 U/L (0-33); Albumin Level 3.2 g/dL (3.5-5.2); Alkaline Phosphatase 92 IU/L (35-105); Blood Urea Nitrogen 12 mg/dL (8-23); Calcium 8.9 mg/dL (8.5-10.5); Carbon Dioxide 25 mmol/L (22-29); Chloride 107 mmol/L (98-107); Globulin 2.8 g/dL (1.3-4.6); Glucose 87 mg/dL (65-115); Osmolality Calculated 291 mOsm/kg (285-295); Sodium 141 mmol/L (136-145); Total Bilirubin 0.6 mg/dL (0.15-1.2)
[2020-06-05 06:05] LABS: Anion Gap 12.9 (5-19); Aspartate Amino Transferase 18 U/L (0-32); Potassium 3.9 mmol/L (3.5-5.1)
[2020-06-05 07:42] VITALS: BP 144/79; PULSE 68; RESP 17; TEMP 36.4; O2SAT 92
[2020-06-05] MEDS: sodium chloride 0.9% 1,000 ML 125 ML IV (09:03)
--- NOTE | 2020-06-05 09:46 | P.PN_ITS ---
Subjective Subjective: Interval history: Marjorie is a 69 yo female that presented with top of basilar syndrome on May 29. Today she was able to hold short conversations and was in a pleasant mood. In conversation, she seemed a bit confused and had a hard time remembering some words, but her thought pattern was logical. She stated that she feels SOB today. She is able to follow commands and answer my questions. She was unable to tell me her name, date, or where she was. The nurse reported that the patient's was able to get her to eat 75% of her food yesterday, and the patient was able to eat some eggs this morning. Medications: Reviewed: Yes Vitals/I&O/Wt Last Vital Signs Temp 97.5 F L 06/05/20 07:42 Pulse 68 06/05/20 07:42 Resp 17 06/05/20 07:42 BP 144/79 06/05/20 07:42 Pulse Ox 92 06/05/20 07:42 06/04/20 06/05/20 06/05/20 22:59 06:59 14:59 Intake Total 987.5 / 2187.5 1100 / 3287.5 Output Total 1350 / 1350 900 / 2250 Balance -362.5 / 837.5 200 / 1037.5 Physical Exam Const: COMMON NORMALS: no acute distress and alert EXAM LIMITATIONS: altered mental status GENERAL APPEARANCE: cooperative and comfortable ORIENTATION/CONSCIOUSNESS: not oriented to person, not oriented to place and not oriented to time HENMT: COMMON NORMALS: normocephalic and atraumatic HEAD & SCALP: normocephalic and atraumatic Eye: COMMON NORMALS: Equal, round and reactive pupils present, EOMs intact bilaterally, conjunctivae normal, no scleral icterus and no papilledema CONJUNCTIVA: Yes conjunctivae normal PUPIL: Yes Equal, round and reactive pupils present DIRECT OPHTHALMOSCOPY: Yes no papilledema Neck/C-Spine: COMMON NORMALS: no JVD Resp: COMMON NORMALS: normal respiratory effort, No retractions, No use of accessory muscles and clear to auscultation bilaterally AUSCULTATION: clear to auscultation bilaterally Cardio: COMMON NORMALS: no JVD, regular rate, regular rhythm, S1 normal heart sound present, S2 normal heart sound present, No gallops present (Cardio), No clicks present (Cardio), No murmurs present (Cardio), No rub (Cardio) and Peripheral pulses 2+ throughout RATE: regular rate RHYTHM: regular rhythm HEART SOUNDS: S1 normal heart sound present and S2 normal heart sound present PERIPHERAL PULSES: Peripheral pulses 2+ throughout Neuro: COMMON NORMALS: CN's II-XII intact bilaterally, moves all extremities, no focal motor deficits and no sensory deficits noted SENSORIUM/ORIENTATION: Yes alert, No oriented to person, No oriented to place and No oriented to time MOTOR EXAM: 5/5 motor strength present throughout and no tremor noted Psych: COMMON NORMALS: cooperative and normal affect; negative for speech normal ATTITUDE: Yes calm ACTIVITY/MOTOR BEHAVIOR: Yes appropriate eye contact SPEECH: No normal speech MOOD & AFFECT: Yes euthymic mood THOUGHT PROCESS: confused Urinary Catheter Management^: Olson: Cath Placed During This Visit: yes Reason for Continuing Indwelling Catheter: Acute Urinary Retention or Obstruction Urinary Catheter Date of Insertion: 05/29/20 Urinary Catheter Time of Insertion: 21:20 Data : 06/05/20 05:17 06/05/20 05:17 Attestations Medical Necessity Statement*: Pt will be discharged today. Coding Level of Care Code Acute State Comptroller for [facility] Fwd Exam Comprehensive
[2020-06-05] MEDS: clopidogrel 75 mg Tablet PO (09:58)
[2020-06-05] MEDS: levothyroxine 50 mcg Tablet PO (09:59)
[2020-06-05] MEDS: dexamethasone 4 mg Tablet 1 MG PO (09:59)
[2020-06-05] MEDS: famotidine 20 mg Tablet PO (09:59)
[2020-06-05] MEDS: aspirin 81 mg EC Tablet PO (09:59)
--- NOTE | 2020-06-05 10:24 | XR_ITS ---
WS: [id number] XR chest 1V portable [id number] REASON FOR EXAM: dyspnea FINDINGS: Compared to previous examination of 06/01/2020, the Dobbhoff feeding tube has been removed. 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 There is elevation of right hemidiaphragm. No acute pulmonary parenchymal or pleural abnormality is identified. XR/XR chest 1V portable [id number] IMPRESSION: Except for the removal of the Dobbhoff feeding tube, the chest is unchanged com pared to 06/01/2020 with no definite acute abnormality identified.
[2020-06-05 11:31] VITALS: BP 121/78; PULSE 86; RESP 18; TEMP 36.7; O2SAT 96
[2020-06-05 11:49] LABS: Glucose Point of Care 91 mg/dL (70-110)
[2020-06-05 13:41] LABS: NT Pro B Type Natriuretic Pept 153 pg/mL (0-125)
--- NOTE | 2020-06-05 14:17 | P.DS_ITS ---
Discharge Providers Date of Admission: 05/29/20 16:36 Date of Discharge: June 05, 2020 Attending Provider at Admission: Jose Armando Pereira MD Attending Provider at Discharge: Jennifer Bartlett MD Primary Care Provider: Selma Marks APN Diagnoses at Discharge Discharge Diagnosis (1) Top of basilar syndrome: Status: Acute (2) Secondary adrenal insufficiency: Status: Acute (3) Central hypothyroidism: Status: Acute (4) Diastolic dysfunction: Status: Acute (5) HTN (hypertension): Status: Acute Qualifiers: Hypertension type: essential hypertension Qualified Code(s): I10 - Essential (primary) hypertension (6) Aspiration pneumonia: Status: Acute Reason for Visit Reason for Visit: Unresponsive Hospital Course Hospital Course 79-year-old lady with a history of CVA in October 2018,central hypothyroidism, central adrenal insufficiency, hypertension, diastolic CHF who presented on 05/29 to [facility] due to altered mental status. Stat MRI scan shows diffusion-weighted abnormality in both of the thalami and chronic wasting of both temporal lobes from prior insult. During the course of admission usually patients mentation was waxing and waning however over the past 48 hours she has continued to show improvement. Completely aphasic, she is now able to reply to simple questions. She speaks briefly however the sentences are starting to make sense. She nods yes or no appropriately and uses a few words to communicate her needs. She is able to ambulate with the assistance of physical therapy and walker. She is remaining awake for the most part at this present time. Overall mentation is improving over her baseline. Physical Exam Narrative: EXAM NARRATIVE: GEN: Awake, alert , aphasic, attempts to communicate, speaks few simple words to communicate her needs, asked top be transferred back to bed, put blanket over her knees CVS: S1S2 N RS: CTA B/L Abd: Soft, nt/nd , bs+ FINANCIAL COMPLIANCE MANAGER: Balance is improving compared to yesterday, ambulated in hallway with assistance and walker Urinary Catheter Management^: Olson: Cath Placed During This Visit: yes Reason for Continuing Indwelling Catheter: Acute Urinary Retention or Obstruction Urinary Catheter Date of Insertion: 05/29/20 Urinary Catheter Time of Insertion: 21:20 Discharge Data Data Completed and Pending: Completed Studies During Hospitalization Category Date Time Status CT head wo con* 7 0450 Urgent Cat Scan 05/29/20 14:32 Completed CXRP [XR chest 1V portable [id number]] R outine Exams 05/31/20 09:59 Completed XR chest 1V carlos ble [id number] Routine Exams 05/31/20 07:00 Completed XR chest 1V carlos ble [id number] Routine Exams 06/01/20 07:00 Completed XR chest 1V carlos ble [id number] Routine Exams 06/05/20 10:24 Completed XR chest 1V carlos ble [id number] Urgent Exams 05/29/20 14:32 Completed MR angio head wo con [id number] Urgent MRI 05/29/20 16:45 Completed MR head wo con* [id number] 0551 Urgent MRI 05/29/20 16:45 [place] [id number] Urgent MRI 05/29/20 16:45 Completed CV echo complete* [id number] Routine Ultrasound 05/30/20 07:00 Completed Labs from last 24 hours 06/05/20 06/05/20 06/05/20 11:45 05:47 05:17 WBC RBC Hgb Hct MCV MCH MCHC RDW Plt Count MPV Neut % (Auto) Lymph % (Auto) [place] % (Auto) Eos % (Auto) Baso % (Auto) Neut # (Auto) Lymph # (Auto) [place] # (Auto) Eos # (Auto) Baso # (Auto) Nucleated RBC % (a uto) Nucleated RBCs # Sodium 141 Potassium 3.9 Chloride 107 Carbon Dioxide 25 Anion Gap 12.9 BUN 12 Creatinine 0.7 GFR Calculation Not Reportable Glucose 87 POC Glucose 91 Calculated Osmolal ity 291 Calcium 8.9 Total Bilirubin 0.6 AST 18 ALT 8 Alkaline Phosphata se 92 NT-Pro-B Natriuret Pep 153 H Total Protein 6.0 L Albumin 3.2 L Globulin 2.8 06/05/20 05:17 WBC 8.3 RBC 4.38 Hgb 12.9 Hct 41.9 MCV 95.7 MCH 29.5 MCHC 30.8 RDW 14.1 Plt Count 184 MPV 10.7 H Neut % (Auto) 73.4 Lymph % (Auto) 18.6 [place] % (Auto) 5.9 Eos % (Auto) 1.1 Baso % (Auto) 0.4 Neut # (Auto) 6.12 Lymph # (Auto) 1.6 [place] # (Auto) 0.5 Eos # (Auto) 0.1 Baso # (Auto) 0.0 Nucleated RBC % (a uto) 0 Nucleated RBCs # 0.0 Sodium Potassium Chloride Carbon Dioxide Anion Gap BUN Creatinine GFR Calculation Glucose POC Glucose Calculated Osmolal ity Calcium Total Bilirubin AST ALT Alkaline Phosphata se NT-Pro-B Natriuret Pep Total Protein Albumin Globulin Vitals: Last Vital Signs Temp 98.1 F 06/05/20 11:31 Pulse 86 06/05/20 11:31 Resp 18 06/05/20 11:31 BP 121/78 06/05/20 11:31 Pulse Ox 96 06/05/20 11:31 Discharge Plan Discharge Patient Disposition: Xfer SNF Condition: Stable Prescriptions: New aspirin 81 mg Tablet,Delayed Release (Dr/Ec) 81 mg PO DAILY 30 Days Qty: 30 RF: 0 atorvastatin 40 mg Tablet 80 mg PO Q24H 30 Days Qty: 30 RF: 0 clopidogrel 75 mg Tablet 75 mg PO DAILY 30 Days Qty: 30 RF: 0 famotidine 20 mg Tablet 20 mg PO BID 30 Days Qty: 60 RF: 0 Continued acetaminophen [Tylenol Extra Strength] 500 mg tablet 500 mg PO BID PRN (Reason: PAIN/FEVER) RF: 0 cranberry extract [Cranberry Concentrate] 500 mg capsule 500 mg PO DAILY RF: 0 metoprolol succinate 50 mg tablet extended release 24 hr 100 mg PO DAILY RF: 0 potassium 99 mg tablet 99 mg PO DAILY PRN (Reason: UNKNOWN) RF: 0 loperamide 2 mg capsule 2 mg PO Q4H PRN (Reason: Diarrhea) RF: 0 mecobalamin (vitamin B12) 5,000 mcg tablet,disintegrating 5,000 mcg PO DAILY RF: 0 nitroglycerin [Nitrostat] 0.4 mg tablet, sublingual 0.4 mg SUBLINGUAL Q5M PRN (Reason: chest pain) Qty: 14 RF: 0 Changed Synthroid 75 mcg tablet 50 mcg PO DAILY Qty: 0 RF: 0 dexamethasone 0.5 mg tablet 1 mg PO DAILY Qty: 0 RF: 0 Discontinued aspirin 325 mg tablet 325 mg PO DAILY RF: 0 Discharge Orders: Discharge Order (Routine); Ordered 06/05/20 Ordered By: Jennifer Bartlett Referrals: [facility] [Outside] Marks,Selma CADDIE [Primary Care Provider] - Discharge Diet: As Directed Discharge Activity: As per PT/OT instructions Patient Instructions: Ischemic Stroke (DC), Self Care Measures After a Stroke (DC) Discharge Attestations Time Spent in Discharge Care*: greater than 30 min Specific Discharge Activities: educating and/or supporting family/caregiver, discussing with employment case manager/social workers/dc planners and documenting/other paperwork Quality Metrics Clinical Quality Measures During this hospital stay, did patient experience: Stroke Contraindication to Antithrombotic: Antithrombotic prescribed Contraindication to Anticoagulation: Overlap treatment not indicated Contraindication to Statin: Statin prescribed Coding Level of Care Code Acute Biodiesel Production Technician for Chg Fwd Diagnoses Top of basilar syndrome G45.0 Secondary adrenal insufficiency E27.49 Central hypothyroidism E03.8 Diastolic dysfunction I51.89 HTN (hypertension) I10 Hypertension type: essential hypertension Aspiration pneumonia J69.0
[2020-06-05 16:00] VITALS: BP 126/84; PULSE 74; RESP 18; TEMP 36.4; O2SAT 93
[2020-06-05 16:59] LABS: Glucose Point of Care 103 mg/dL (70-110)
[2020-06-05 18:44] VITALS: BP 126/84; PULSE 74; RESP 18; TEMP 36.4; O2SAT 93
== END 2020-06-05 18:30 | disposition skilled nursing facility (03) | DRG 64 ==
LOC: ER 17:07 → ICU 19:58 → MEDSURG 06-02 19:32
PROVIDERS: Emergency Medicine; Internal Medicine; Admitting Provider Family Medicine; Emergency Provider Emergency Medicine; PCP Nurse Practitioner Family; Visit Provider Student in an Organized Health Care Education/Training Program
DX: I63.9 Cerebral infarction, unspecified (principal); J69.0 Pneumonitis due to inhalation of food and vomit; G45.0 Vertebro-basilar artery syndrome; E27.49 Other adrenocortical insufficiency; I50.30 Unspecified diastolic (congestive) heart failure; R47.01 Aphasia; Z86.73 Personal history of transient ischemic attack (TIA), and cerebral infarction without residual deficits; E03.8 Other specified hypothyroidism; I11.0 Hypertensive heart disease with heart failure; E89.3 Postprocedural hypopituitarism; I48.91 Unspecified atrial fibrillation
CPT/HCPCS: 12345; 36415; 36416; 36600; 51702; 70450; 70544; 70551; 71045; 80053; 80306; 80307; 81001; 82550; 82803; 82805; 82962; 83735; 83880; 84100; 84145; 84443; 84484; 85025; 85610; 86140; 87426; 92507; 92523; 92526; 92610; 93005; 93306; 96372; 96375; 97110; 97116; 97162; 97166; 97530; 97535; 99283; J0743; J1100; J1200; J1650; J1885; J2930; J3490; J7030; J8540

== ENCOUNTER 2020-06-09 08:54 | Inpatient (IN) | payer MEDICARE, BC, SELFPAY ==
[2020-06-09] VITALS (8 sets, daily range): BP systolic 99–110; BP diastolic 64–75; PULSE 102–116; RESP 15–20; TEMP 36.6–37.4; O2SAT 91–100; BMI 63.6
--- NOTE | 2020-06-09 09:00 | CT_ITS ---
WS: [id number] CT HEAD TECHNIQUE: Noncontrast CT of the head obtained from the skullbase to the vertex. CLINICAL INFORMATION: AMS/previous CVA COMPARISON: MRI May 29, 2020 DLP: 732.[address] scans at [facility] use at least one of these dose optimization techniques: automat ed exposure control; mA and/or kV adjustment per patient size (includes targeted exams where dose is matched to clinical indication); or iterative reconstruction. FINDINGS: No evidence of intracranial hemorrhage or mass effect. Ventricular system and basal cisterns are reese nt. Again seen are the bilateral subacute paramedian thalamic infarcts with a small amount of edema. Expected changes since the prior MRI. No hemorrhage or mass effect. No hydrocephalus. Mild small vessel changes. Mild parenchymal volume loss. Left sphenoid sinusitis. Normal visualized s oft tissues. CT/CT head wo con* [id number] IMPRESSION: 1. No evidence of intracranial hemorrhage or mass effect. 2. Bilateral subcutaneous paramedian thalamic infarct small amount of edema as seen on the prior MRI 3. No hydrocephalus. No new suspicious abnormality. 4. Left sphenoid sinusitis. Attempted Imtiaz Johnson DO at 06/09/2020 9:39 AM.
--- NOTE | 2020-06-09 09:01 | ECG_ITS ---
[facility] Test Date: 2020-06-09 Pat Name: Marjorie Gottlieb Department: Room: Gender: Female Hand Stone Polisher: : 1950 Requested By: Imtiaz Hernandez Order Number: [id number] Elsy MD: Letty Sims M.D. Measurements Intervals [place] Rate: 114 P: 36 CT: 139 QRS: 39 QRSD: 98 T: 174 QT: 336 QTc: 464 Interpretive Statements SINUS TACHYCARDIA POSSIBLE LEFT ATRIAL ENLARGEMENT [-0.1mV P WAVE IN V1/V2] LOW QRS VOLTAGE IN PRECORDIAL LEADS [QRS DEFLECTION < 1.0 mV IN CHEST LEADS] INFERIOR MYOCARDIAL INFARCTION, OF INDETERMINATE AGE MODERATE T-WAVE ABNORMALITY, CONSIDER ANTEROLATERAL ISCHEMIA Compared to ECG 05/29/2020 20:00:36 Low QRS voltage now present Myocardial infarct finding now present T-wave abnormality now present Possible ischemia now present Sinus rhythm no longer present First degree AV block no longer present Electronically Signed On 06-10-2020 19:47:01 MACHINE PRECISION ETCHER by Letty Sims M.D. [id number]
--- NOTE | 2020-06-09 09:01 | XR_ITS ---
WS: [id number] XR chest 1V portable [id number] REASON FOR EXAM: dyspnea/cough FINDINGS: The chest appears relatively unchanged compared to 06/05/2020. There are chronic interstitial changes in both lower lungs. 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 Right hemidiaphragm is elevated. Mild tortuosity of thoracic aorta. Normal heart size. XR/XR chest 1V portable [id number] IMPRESSION: Stable abnormal chest as above with no definite acute abnormality.
[2020-06-09 09:14] LABS: Basophils # 0.1 10^3/uL (0.0-0.1); Basophils % 0.5 %; Eosinophils # 0.1 10^3/uL (0.0-0.8); Hematocrit 48.7 % (37.0-47.0); Hemoglobin 15.3 g/dL (11.5-15.3); Lymphocytes # 1.8 10^3/uL (0.8-4.8); Lymphocytes % 19.1 %; Mean Corpuscular HGB Conc 31.4 g/dL (30.0-36.0); Mean Corpuscular Hemoglobin 29.8 pg (28.0-34.0); Mean Corpuscular Volume 94.7 fL (81-99); Mean Platelet Volume 11.5 fL (7.4-10.4); Monocytes # 0.6 10^3/uL (0.2-0.9); Monocytes % 6.4 %; Neutrophils # 6.82 10^3/uL (1.8-7.7); Neutrophils % 72.5 %; Nucleated Red Blood Cells % 0 %; Platelet Count 225 10^3/cmm (130-400); Red Blood Count 5.14 10^6/uL (4.1-5.3); Red Cell Distribution Width 14.7 % (12.1-15.1); White Blood Count 9.4 10^3/uL (4.0-10.0)
--- NOTE | 2020-06-09 09:19 | ED_ITS ---
HPI - Altered Mental Status General: Chief Complaint: Altered Mental Status Stated Complaint: AMS Time Seen by Provider: 06/09/20 08:55 History of Present Illness: HPI narrative: 69-year-old female who presents to the emergency room from [facility] with altered mental status she had previously had a CVA. There is some question about when she was last known well or when she was last at her baseline. Consensus seems to be 3 days ago family thought she was no longer at her baseline nurse who came on shift this morning also felt she was not at her usual baseline from when she had seen her 3 days ago going into the weekend. Did note the patient intentionally reached up to her face and adjusted her nasal cannula and then adjusted her arm as she rested on the side rail of the bed again. I was not able to get her to open her eyes or follow any simple commands EMS stated she would open her eyes to loud verbal stimuli with a picture. She does not really offer any specific history and does not answer any questions. Called and confirmed at the [facility] patient is currently a full code there is no family at bedside at this time Review of Systems General: Reports: ROS unobtainable due to medical condition PFSH ED PFSH: Medical History Diastolic dysfunction H/O: pituitary tumor History of stroke HTN (hypertension) TIA (transient ischemic attack) Surgical History History of abdominal surgery Exploratory History of surgical removal of pituitary gland S/P lumpectomy of breast Family History Father Stroke Other CAD (coronary artery disease) Hypertension Social History Smoking and tobacco status: never smoked Alcohol intake: never Household members: spouse Marital status: Current occupation: unsure of steps into house, currently pt thinks she lives with her mom Physical Exam HENMT: COMMON NORMALS: normocephalic and hearing grossly normal bilaterally HEAD & SCALP: normocephalic OTHER: Ecchymosis at the right lower corner of the mouth. Neck/C-Spine: COMMON NORMALS: no JVD Resp: COMMON NORMALS: normal respiratory effort, No retractions, No use of accessory muscles and clear to auscultation bilaterally AUSCULTATION: clear to auscultation bilaterally Cardio: COMMON NORMALS: no JVD, regular rate, regular rhythm and No murmurs present (Cardio) RATE: regular rate RHYTHM: regular rhythm GI: COMMON NORMALS: Soft to palpation and No hepatosplenomegaly present A USCULTATION: Yes normoactive bowel sounds PALPATION: Yes Soft to palpation, No Tenderness to palpation present (GI), No Guarding due to palpation present (GI) and Yes No hepatosplenomegaly present Extremity: COMMON NORMALS: normal to inspection, capillary refill normal, no clubbing, cyanosis or edema, no calf tenderness and no pedal edema Course Vital Signs: Vital signs: Vital Signs Temperature 97.8 F 06/09/20 08:55 Pulse Rate 116 H 06/09/20 08:55 Respiratory Rate 18 06/09/20 08:55 Blood Pressure 108/75 06/09/20 08:55 Pulse Oximetry 100 06/09/20 08:55 MDM - Altered Mental Status MDM Narrative: Medical decision making narrative: Elevated T bili and slightly elevated transaminase liver ultrasound negative patient previously had has a cholecystectomy site listed in her history but there is an old CT reports previous cholecystectomy. Given her altered mental status recent CVA we will go ahead and admit the patient. Also gave her potassium to correct her hypokalemia. Discussed with Dr. Sarmiento will put the patient on telemetry observation he has discussed with the family and they have decided to change the patient to a no code. Lab Data: Labs: Lab Results 06/09/20 06/09/20 06/09/20 Range/Units 08:39 08:39 08:39 WBC 9.4 (4.0-10.0) 10^3/ uL RBC 5.14 (4.1-5.3) 10^6/u L Hgb 15.3 (11.5-15.3) g/dL Hct 48.7 H (37.0-47.0) % MCV 94.7 (81-99) fL MCH 29.8 (28.0-34.0) pg MCHC 31.4 (30.0-36.0) g/dL RDW 14.7 (12.1-15.1) % Plt Count 225 (130-400) 10^3/c mm MPV 11.5 H (7.4-10.4) fL Neut % (Auto) 72.5 % Lymph % (Auto) 19.1 % Mccracken % (Auto) 6.4 % Eos % (Auto) 1.0 % Baso % (Auto) 0.5 % Neut # (Auto) 6.82 (1.8-7.7) 10^3/u L Lymph # (Auto) 1.8 (0.8-4.8) 10^3/u L Mccracken # (Auto) 0.6 (0.2-0.9) 10^3/u L Eos # (Auto) 0.1 (0.0-0.8) 10^3/u L Baso # (Auto) 0.1 (0.0-0.1) 10^3/u L Nucleated RBC % (a uto) 0 % Nucleated RBCs # 0.0 /100WBC Specimen Type Sample Site ABG pH (7.35-7.45) ABG pCO2 (35-45) mmHg ABG pO2 (80.0-100.0) mmH g ABG HCO3 (22-26) mmol/L ABG O2 Saturation ABG Base Excess (-2.0-2.0) mmol/ L Krishna Test A-a O2 Gradient (5-10) mmHg Hematocrit (37-47) % Hgb O2 Saturation (95-100) % Carboxyhemoglobin (0.4-20.1) %THgb Methemoglobin (0.4-1.5) % Total Hemoglobin (12-16) g/dL Ionized Calcium (1.1-1.4) mmol/L O2 Delivery Device O2 Liters/Min % Barrel Cap Setter ID Sodium 143 (136-145) mmol/L Potassium 3.3 L (3.5-5.1) mmol/L Chloride 101 (98-107) mmol/L Carbon Dioxide 27 (22-29) mmol/L Anion Gap 18.3 (5-19) BUN 15 (8-23) mg/dL Creatinine 0.9 (0.5-0.9) mg/dL GFR Calculation Not Reportable Glucose 88 (65-115) mg/dL Calculated Osmolal ity 296 H (285-295) mOsm/k g Lactic Acid (0.5-2.2) mmol/L Calcium 9.2 (8.5-10.5) mg/dL Total Bilirubin 1.7 H (0.15-1.2) mg/dL AST 44 H (0-32) U/L ALT 13 (0-33) U/L Alkaline Phosphata se 104 (35-105) IU/L Creatine Kinase 1969 H* (26-192) U/L Troponin T Baselin e 24 H (0-10) ng/L Troponin T 120 Min [place] (0-10) ng/L Delta Troponin T (0-10) ABS# Total Protein 6.0 L (6.6-8.7) g/dL Albumin 3.7 (3.5-5.2) g/dL Globulin 2.3 (1.3-4.6) g/dL Urine Color (Yellow) Urine Appearance (CLEAR) Urine pH (5-7) Ur Specific Gravit y (1.005-1.030) Urine Protein (Negative) Urine Glucose (UA) (Normal) Urine Ketones (Negative) Urine Blood (Negative) Urine Nitrate (Negative) Urine Bilirubin (Negative) Urine Urobilinogen (Negative) mg/dL Ur Leukocyte Monae ase (Negative) Urine RBC (0-2) /hpf Urine WBC (0-5) /hpf Ur Squamous Epith Cells (0-5) /hpf Amorphous Sediment /hpf Urine Bacteria (NONE) /hpf Urine Mucus /hpf Serum Ketones Positive H (Negative) 06/09/20 06/09/20 06/09/20 Range/Units 09:23 09:30 09:38 WBC (4.0-10.0) 10^3/ uL RBC (4.1-5.3) 10^6/u L Hgb (11.5-15.3) g/dL Hct (37.0-47.0) % MCV (81-99) fL MCH (28.0-34.0) pg MCHC (30.0-36.0) g/dL RDW (12.1-15.1) % Plt Count (130-400) 10^3/c mm MPV (7.4-10.4) fL Neut % (Auto) % Lymph % (Auto) % Mccracken % (Auto) % Eos % (Auto) % Baso % (Auto) % Neut # (Auto) (1.8-7.7) 10^3/u L Lymph # (Auto) (0.8-4.8) 10^3/u L Mccracken # (Auto) (0.2-0.9) 10^3/u L Eos # (Auto) (0.0-0.8) 10^3/u L Baso # (Auto) (0.0-0.1) 10^3/u L Nucleated RBC % (a uto) % Nucleated RBCs # /100WBC Specimen Type Arterial Sample Site Radial, left ABG pH 7.48 H (7.35-7.45) ABG pCO2 34.2 L (35-45) mmHg ABG pO2 69.4 L (80.0-100.0) mmH g ABG HCO3 25.3 (22-26) mmol/L ABG O2 Saturation 94.4 ABG Base Excess 2.2 H (-2.0-2.0) mmol/ L Krishna Test Pos A-a O2 Gradient 5.1 (5-10) mmHg Hematocrit 45.6 (37-47) % Hgb O2 Saturation 92.5 L (95-100) % Carboxyhemoglobin 1.5 (0.4-20.1) %THgb Methemoglobin 0.5 (0.4-1.5) % Total Hemoglobin 14.9 (12-16) g/dL Ionized Calcium 1.2 (1.1-1.4) mmol/L O2 Delivery Device Nc O2 Liters/Min 2.0 % Barrel Cap Setter ID Cak Sodium 143.0 (136-145) mmol/L Potassium 2.8 L (3.5-5.1) mmol/L Chloride (98-107) mmol/L Carbon Dioxide (22-29) mmol/L Anion Gap (5-19) BUN (8-23) mg/dL Creatinine (0.5-0.9) mg/dL GFR Calculation Glucose 107.0 (65-115) mg/dL Calculated Osmolal ity (285-295) mOsm/k g Lactic Acid 1.2 (0.5-2.2) mmol/L Calcium (8.5-10.5) mg/dL Total Bilirubin (0.15-1.2) mg/dL AST (0-32) U/L ALT (0-33) U/L Alkaline Phosphata se (35-105) IU/L Creatine Kinase (26-192) U/L Troponin T Baselin e (0-10) ng/L Troponin T 120 Min [place] (0-10) ng/L Delta Troponin T (0-10) ABS# Total Protein (6.6-8.7) g/dL Albumin (3.5-5.2) g/dL Globulin (1.3-4.6) g/dL Urine Color Dark yellow (Yellow) Urine Appearance Clear (CLEAR) Urine pH 5 (5-7) Ur Specific Gravit y 1.025 (1.005-1.030) Urine Protein 1+ H (Negative) Urine Glucose (UA) Norm (Normal) Urine Ketones 2+ H (Negative) Urine Blood 2+ H (Negative) Urine Nitrate Negative (Negative) Urine Bilirubin 1+ H (Negative) Urine Urobilinogen 1 H (Negative) mg/dL Ur Leukocyte Monae ase Negative (Negative) Urine RBC 0-4 H (0-2) /hpf Urine WBC 5-10 H (0-5) /hpf Ur Squamous Epith Cells Rare (0-5) /hpf Amorphous Sediment 1+ /hpf Urine Bacteria 1+ H (NONE) /hpf Urine Mucus 2+ /hpf Serum Ketones (Negative) 12/14/20 Range/Units 10:49 WBC (4.0-10.0) 10^3/ uL RBC (4.1-5.3) 10^6/u L Hgb (11.5-15.3) g/dL Hct (37.0-47.0) % MCV (81-99) fL MCH (28.0-34.0) pg MCHC (30.0-36.0) g/dL RDW (12.1-15.1) % Plt Count (130-400) 10^3/c mm MPV (7.4-10.4) fL Neut % (Auto) % Lymph % (Auto) % Mccracken % (Auto) % Eos % (Auto) % Baso % (Auto) % Neut # (Auto) (1.8-7.7) 10^3/u L Lymph # (Auto) (0.8-4.8) 10^3/u L Mccracken # (Auto) (0.2-0.9) 10^3/u L Eos # (Auto) (0.0-0.8) 10^3/u L Baso # (Auto) (0.0-0.1) 10^3/u L Nucleated RBC % (a uto) % Nucleated RBCs # /100WBC Specimen Type Sample Site ABG pH (7.35-7.45) ABG pCO2 (35-45) mmHg ABG pO2 (80.0-100.0) mmH g ABG HCO3 (22-26) mmol/L ABG O2 Saturation ABG Base Excess (-2.0-2.0) mmol/ L Krishna Test A-a O2 Gradient (5-10) mmHg Hematocrit (37-47) % Hgb O2 Saturation (95-100) % Carboxyhemoglobin (0.4-20.1) %THgb Methemoglobin (0.4-1.5) % Total Hemoglobin (12-16) g/dL Ionized Calcium (1.1-1.4) mmol/L O2 Delivery Device O2 Liters/Min % Barrel Cap Setter ID Sodium (136-145) mmol/L Potassium (3.5-5.1) mmol/L Chloride (98-107) mmol/L Carbon Dioxide (22-29) mmol/L Anion Gap (5-19) BUN (8-23) mg/dL Creatinine (0.5-0.9) mg/dL GFR Calculation Glucose (65-115) mg/dL Calculated Osmolal ity (285-295) mOsm/k g Lactic Acid (0.5-2.2) mmol/L Calcium (8.5-10.5) mg/dL Total Bilirubin (0.15-1.2) mg/dL AST (0-32) U/L ALT (0-33) U/L Alkaline Phosphata se (35-105) IU/L Creatine Kinase (26-192) U/L Troponin T Baselin e (0-10) ng/L Troponin T 120 Min [place] 18.83 H (0-10) ng/L Delta Troponin T -5.17 L (0-10) ABS# Total Protein (6.6-8.7) g/dL Albumin (3.5-5.2) g/dL Globulin (1.3-4.6) g/dL Urine Color (Yellow) Urine Appearance (CLEAR) Urine pH (5-7) Ur Specific Gravit y (1.005-1.030) Urine Protein (Negative) Urine Glucose (UA) (Normal) Urine Ketones (Negative) Urine Blood (Negative) Urine Nitrate (Negative) Urine Bilirubin (Negative) Urine Urobilinogen (Negative) mg/dL Ur Leukocyte Monae ase (Negative) Urine RBC (0-2) /hpf Urine WBC (0-5) /hpf Ur Squamous Epith Cells (0-5) /hpf Amorphous Sediment /hpf Urine Bacteria (NONE) /hpf Urine Mucus /hpf Serum Ketones (Negative) Discharge Plan Discharge Patient Disposition: Placed in Observation Clinical Impression: Altered mental status, HTN (hypertension), CVA (cerebral vascular accident) Condition: Stable Prescriptions: No Action acetaminophen [Tylenol Extra Strength] 500 mg tablet 500 mg PO BID PRN (Reason: PAIN/FEVER) RF: 0 cranberry extract [Cranberry Concentrate] 500 mg capsule 500 mg PO DAILY RF: 0 metoprolol succinate 50 mg tablet extended release 24 hr 100 mg PO DAILY RF: 0 potassium 99 mg tablet 99 mg PO DAILY PRN (Reason: UNKNOWN) RF: 0 loperamide 2 mg capsule 2 mg PO Q4H PRN (Reason: Diarrhea) RF: 0 mecobalamin (vitamin B12) 5,000 mcg tablet,disintegrating 5,000 mcg PO DAILY RF: 0 nitroglycerin [Nitrostat] 0.4 mg tablet, sublingual 0.4 mg SUBLINGUAL Q5M PRN (Reason: chest pain) Qty: 14 RF: 0 aspirin 81 mg Tablet,Delayed Release (Dr/Ec) 81 mg PO DAILY 30 Days Qty: 30 RF: 0 atorvastatin 40 mg Tablet 80 mg PO Q24H 30 Days Qty: 30 RF: 0 clopidogrel 75 mg Tablet 75 mg PO DAILY 30 Days Qty: 30 RF: 0 famotidine 20 mg Tablet 20 mg PO BID 30 Days Qty: 60 RF: 0 levothyroxine [Synthroid] 75 mcg tablet 50 mcg PO DAILY Qty: 0 RF: 0 dexamethasone 0.5 mg tablet 1 mg PO DAILY Qty: 0 RF: 0 Referrals: Selma Marks APN [Primary Care Provider] - Coding Level of Care Code ED [employer] for Vu Ochoa
[2020-06-09 09:21] LABS: Ketone (Acetest) Serum Positive (Negative)
[2020-06-09 09:29] LABS: Alanine Aminotransferase 13 U/L (0-33); Albumin Level 3.7 g/dL (3.5-5.2); Alkaline Phosphatase 104 IU/L (35-105); Anion Gap 18.3 (5-19); Aspartate Amino Transferase 44 U/L (0-32); Blood Urea Nitrogen 15 mg/dL (8-23); Calcium 9.2 mg/dL (8.5-10.5); Carbon Dioxide 27 mmol/L (22-29); Chloride 101 mmol/L (98-107); Globulin 2.3 g/dL (1.3-4.6); Glucose 88 mg/dL (65-115); Osmolality Calculated 296 mOsm/kg (285-295); Potassium 3.3 mmol/L (3.5-5.1); Sodium 143 mmol/L (136-145); Total Bilirubin 1.7 mg/dL (0.15-1.2)
[2020-06-09 09:31] LABS: Troponin(5th) Baseline 24 ng/L (0-10)
[2020-06-09 09:32] LABS: Creatine Phosphokinase 1969 U/L (26-192)
[2020-06-09 09:34] LABS: ABG PCO2 34.2 mmHg (35-45); ABG PH Result 7.48 (7.35-7.45); Alveolar-Arterial Oxygen Gradi 5.1 mmHg (5-10); Arterial Blood Gas Hematocrit 45.6 % (37-47); Base Excess ABG 2.2 mmol/L (-2.0-2.0); Blood Gas Allen Test Pos; Blood Gas Operator Identificat CAK; Blood Gas Sample Site Radial, left; Blood Gas Sample Type Arterial; Carboxyhemoglobin 1.5 %THgb (0.4-20.1); HCO3 ABG 25.3 mmol/L (22-26); HGB O2 Sat 92.5 % (95-100); Ionized Calcium Level - ABG 1.2 mmol/L (1.1-1.4); Methemoglobin 0.5 % (0.4-1.5); Oxygen Device NC; Oxygen Saturation ABG 94.4; PO2 ABG 69.4 mmHg (80.0-100.0); Potassium Level - ABG 2.8 mmol/L (3.5-5.0); Total Hemoglobin 14.9 g/dL (12-16)
[2020-06-09] MEDS: sodium chloride 0.9% 500 ML 999 ML IV (09:39)
[2020-06-09 10:00] LABS: Lactic Sepsis W/Reflex 1.2 mmol/L (0.5-2.2)
[2020-06-09 10:23] LABS: Bilirubin Urine 1+ (Negative); Blood Urine 2+ (Negative); Glucose Urine UA Norm (Normal); Ketones Urine 2+ (Negative); Leukocyte Esterase Urine Negative (Negative); Nitrate Urine Negative (Negative); Protein Urine 1+ (Negative); Specific Gravity, Urine 1.025 (1.005-1.030); Urine Appearance Clear (CLEAR); Urine Color Dark Yellow (Yellow); Urobilinogen Urine 1 mg/dL (Negative); pH Urine 5 (5-7)
[2020-06-09 10:24] LABS: Add Urine Culture? No; Add Urine Microscopic? YES; Amorphous Sediment Urine 1+ /hpf; Bacteria Urine 1+ /hpf; Mucus Urine 2+ /hpf; RBC Urine 0-4 /hpf (0-2); Squamous Epithelial Cell Urine RARE /hpf (0-5)
[2020-06-09] MEDS: lidocaine 1% 5 ML in potassium chloride premix 100 ML 25 ML IV (10:56)
--- NOTE | 2020-06-09 11:01 | ECG_ITS ---
[facility] Test Date: 2020-06-09 Pat Name: Marjorie Gottlieb Department: Room: Gender: Female Line Up Machine Operator: karlie : 1950 Requested By: Imtiaz Hernandez Order Number: [id number] Elsy MD: Letty Sims M.D. Measurements Intervals [place] Rate: 107 P: 50 AL: 147 QRS: 52 QRSD: 94 T: 165 QT: 349 QTc: 466 Interpretive Statements SINUS TACHYCARDIA LOW QRS VOLTAGE IN PRECORDIAL LEADS [QRS DEFLECTION < 1.0 mV IN CHEST LEADS] PROBABLE INFERIOR MYOCARDIAL INFARCTION [35 ms Q WAVE IN II/aVF], OF INDETERMINATE AGE MODERATE T-WAVE ABNORMALITY, CONSIDER ANTEROLATERAL ISCHEMIA [-0.1+ mV T WAVE IN V3-V6] Compared to ECG 06/09/2020 09:11:56 No significant changes Electronically Signed On 06-10-2020 20:15:41 FILTER BED PLACER by Letty Sims M.D. [id number] f
--- NOTE | 2020-06-09 11:06 | US_ITS ---
WS: [id number] ABDOMINAL ULTRASOUND LIMITED REASON FOR VISIT: elevated T bili TECHNIQUE: Grayscale and Doppler ultrasound examination of the abdomen. FINDINGS: Very limited examination due to poor visualization of liver and bile ducts. Pancreas: Portions of the pancreas that were visualized were unremarkable. Abdominal aorta and IVC: No significant abnormality. Liver: Liver measures 13.6 cm in length. The liver appears to be echogenic. No focal lesion was ident ified. Gallbladder: The gallbladder is been surgically removed. Common bile duct was not well seen. A dilate d common bile duct was not identified. Right kidney: Right kidney measures 11.9 cm x 5.0 cm x 5.4 cm. No mass, calculus, or hydronephrosis. No ascites. US/US liver [id number] IMPRESSION: Limited examination. No bile duct dilatation was identified. The liver was fairly echogenic which is a nonspecific finding seen with fatty i nfiltration and other forms of hepatitis.
[2020-06-09 11:14] LABS: Troponin 5 2HR 18.83 ng/L (0-10)
[2020-06-09 11:17] LABS: Troponin 5 2HR Delta -5.17 ABS# (0-10)
--- NOTE | 2020-06-09 12:38 | PM.HP ---
Providers/Chief Complaint Primary Care Provider: Selma Marks APN Chief Complaint: AMS History of Present Illness Marjorie Gottlieb is a 69 year old female sent over from the nursing facility with concerns of mental status change. 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 Symptomatology at that time was aphasia, and reduced responsiveness. She did not qualify for TPA, was not a candidate for thrombectomy. She was placed on aspirin, Plavix, and a statin. On the when she was discharged she was able to answer a few questions, and had increased level of alertness. reports she has not been doing quite so well since the at the nursing facility. He reports decreased p.o. intake. Nursing at the nursing facility report it was very difficult to arouse her today, and sternal rub was not effective. She was completely aphasic. They report they have not seen any concerns for seizure activity. She was not able to take her medications this morning. The nurse could not relate if she took them last night. She has not had any fever, cough, aspiration with food, exposure to Covid or has been Covid positive. This morning during the decreased responsiveness it was noted her heart rate was elevated about 130, and oxygen level went down to 84%. Work-up done last hospital stay included an echocardiogram which demonstrated an EF of 60%, no thrombus. MRI of the brain demonstrated acute bilateral thalamic infarcts, occlusion of single artery of [place]. MRA did not demonstrate significant atherosclerotic disease. Review of Systems General: Reports: ROS unobtainable due to mental status (Unable to do secondary to current neurologic state of decreased responsiven) Medications/Allergies Home Medications Medication Instructions Recorded Confirmed Last Taken Type acetaminophen 500 mg tablet 500 mg PO BID PRN tab 02/06/20 06/09/20 Unknown History cranberry extract 500 mg capsule 500 mg PO DAILY cap 02/06/20 06/09/20 Unknown History metoprolol succinate 50 mg 100 mg PO DAILY tab 02/06/20 06/09/20 Unknown History tablet,extended release 24 hr loperamide 2 mg capsule 2 mg PO Q4H PRN 03/12/20 06/09/20 Unknown History mecobalamin (vitamin B12) 5,000 5,000 mcg PO DAILY 03/12/20 06/09/20 Unknown History mcg disintegrating tablet potassium 99 mg tablet 99 mg PO DAILY PRN tab 03/12/20 06/09/20 Unknown History nitroglycerin 0.4 mg sublingual 0.4 mg SUBLINGUAL Q5M PRN #14 tab 03/17/20 06/09/20 Unknown Rx tablet aspirin 81 mg PO DAILY 30 Days #30 tab 06/05/20 06/09/20 Unknown Rx atorvastatin 80 mg PO Q24H 30 Days #30 tab 06/05/20 06/09/20 Unknown Rx clopidogrel 75 mg PO DAILY 30 Days #30 tab 06/05/20 06/09/20 Unknown Rx dexamethasone 1 mg PO DAILY #0 tab 06/05/20 06/09/20 Unknown Rx famotidine 20 mg PO BID 30 Days #60 tab 06/05/20 06/09/20 Unknown Rx levothyroxine [Synthroid] 50 mcg PO DAILY #0 tab 06/05/20 06/09/20 Unknown Rx Allergies Allergy/AdvReac Type Severity Reaction Status Date / Time Iodinated Contrast Media Allergy Severe ALGY-Hives Verified 03/12/20 09:46 Sulfa (Sulfonamide Allergy Severe ALGY-Swell Verified 03/12/20 09:46 Antibiotics) Lip/Tongue/Throat cephalexin Allergy Unknown Unknown Verified 03/12/20 09:46 cortisone Allergy Unknown Unknown Verified 03/12/20 09:46 levofloxacin [From Levaquin] Allergy Unknown Unknown Verified 03/12/20 09:46 nitrofurantoin Allergy Unknown Unknown Verified 03/12/20 09:46 [From Macrobid] ciprofloxacin [From Cipro] Allergy Unknown Verified 05/30/20 13:41 esomeprazole [From Nexium] Allergy ALGY-Hives Verified 03/12/20 09:46 PFSH Acute PFSH: Medical History (Updated 06/09/20 @ 13:29 by Reagan Medrano MD) Diastolic dysfunction H/O: pituitary tumor History of stroke 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 HTN (hypertension) TIA (transient ischemic attack) Surgical History History of abdominal surgery Exploratory History of surgical removal of pituitary gland S/P lumpectomy of breast Family History Father Stroke Other CAD (coronary artery disease) Hypertension Social History (Updated 06/09/20 @ 13:07 by Reagan Medrano MD) Smoking and tobacco status: never smoked Alcohol intake: never Household members: spouse Marital status: Vitals/I&O/Wt Last Vital Signs Temp 97.8 F 06/09/20 08:55 Pulse 116 H 06/09/20 08:55 Resp 18 06/09/20 08:55 BP 108/75 06/09/20 08:55 Pulse Ox 100 06/09/20 08:55 Weight last 48 hrs Weight 190 kg Physical Exam Narrative: EXAM NARRATIVE: General exam is a nonverbal white female who will spontaneously move all of her extremities. She stares straight ahead. Oxygen saturation 100% room air HEENT: Pupils equally round. Oropharynx is clear. Neck is supple no lymphadenopathy or thyromegaly Cardiovascular regular rhythm, slightly high rate at 105 while I am in the room. No murmur Lungs clear no wheezing or crackles Abdomen is soft with positive bowel sounds. No obvious organomegaly was deferred, no Olson is present Extremities no cyanosis clubbing or edema, cap refill brisk Skin no rash Neurologic: Will not cooperate with exam but spontaneously moving all 4 extremities. No facial droop Urinary Catheter Management^: Olson: Cath Placed During This Visit: no Data : 06/09/20 08:39 06/09/20 08:39 Micro: Microbiology 06/09/20 09:30 Blood Culture - Preliminary Blood SPECIMEN COLLECTED Other data: Hepatic ultrasound demonstrated fatty infiltration likely Chest x-ray no infiltrate, mild interstitial changes, with slight right hemidiaphragm elevation. I reviewed this in detail. CT head no acute changes EKG demonstrates sinus tachycardia, some Q waves inferiorly, some flipped T waves in the anterior precordial leads. Some of this is slightly different from previous EKG on May 29. ABG demonstrates a pH of 7.48, PCO2 34, PO2 of 69. Total bilirubin 1.7, AST 44, CK 1969, troponin XX 4 with repeat of 18 Urinalysis with 5-10 whites, 0-4 reds, negative leukocyte Estrace A&P Assessment and plan (1) Altered mental status: Etiology unclear. Although no overt seizure activity must still consider this as during 2 concerning episodes elevation of heart rate and decreased saturation occurred. CK is also noted to be elevated. 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 Reviewed in detail concerns with . He does not want any significant invasive testing currently, and wants us to medically manage her condition. As seizure is possible will initiate Keppra. At this point do not plan on EEG. Status: Acute Qualifiers: Altered mental status type: unspecified Qualified Code(s): R41.82 - Altered mental status, unspecified (2) Dehydration: IV fluids at 125 cc an hour Status: Acute (3) CVA (cerebral vascular accident): Hydrate DVT prophylaxis Resume Plavix and aspirin when able PT/ST/OT. N.p.o. until cleared by ST Status: Acute (4) Hypokalemia: Supplement Check magnesium level Status: Acute (5) Abnormal EKG: No further work-up planned secondary to other comorbidities. Discussed in detail with . 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 Continue dexamethasone, twice normal dose We will give normal dose of steroid IV Check free T4 Status: Acute (7) Rhabdomyolysis: Hydration Check CK tomorrow Status: Acute Additional A&P Information Abnormal LFTs. Hold statin for now. Hypertension. Blood pressure somewhat lower in the emergency department. Hold blood pressure medicines. As she was on beta-angeli previously would consider IV metoprolol should heart rate get significantly elevated and blood pressure acceptable. History of diastolic dysfunction. No evidence of heart failure clinically. Allow natural . Discussed in detail with Lovenox for DVT prophylaxis Attestations Medical Necessity Statement*: Will need less than 2 midnights for monitoring of altered mental status Time Spent in Patient Care: Greater than 35 minutes Coding Level of Care Code Acute Board Certified Music Therapist for Chg Fwd Diagnoses Altered mental status R41.82 Altered mental status type: unspecified Dehydration E86.0 CVA (cerebral vascular accident) I63.9 Hypokalemia E87.6 Abnormal EKG R94.31 Panhypopituitarism E23.0 Rhabdomyolysis M62.82
[2020-06-09 13:08] LABS: Troponin 5 6HR 18.44 ng/L (0-10)
[2020-06-09 13:11] LABS: Troponin 5 6HR Delta -5.56 ng/L (0-12)
[2020-06-09 14:01] LABS: Free T4 Free Thyroxine 1.07 ng/dL (0.82-1.77); Magnesium 2.3 mg/dL (1.7-2.3)
[2020-06-09] MEDS: enoxaparin 30 mg/0.3 mL Syringe SUBCUT (14:14)
[2020-06-09] MEDS: D5-NS 0.45% + KCL 20 mEq 20 MEQ/1,000 ML BAG 125 MEQ IV ×2 (14:14→23:50)
--- NOTE | 2020-06-09 15:01 | ECG_ITS ---
[facility] Test Date: 2020-06-09 Pat Name: Marjorie Gottlieb Department: Room: 279 Gender: Female Fbi Investigator: : 1950 Requested By: Imtiaz Hernandez Order Number: [id number] Elsy MD: Letty Sims M.D. Measurements Intervals [place] Rate: 102 P: 44 [place]: 144 QRS: 44 QRSD: 94 T: 151 QT: 371 QTc: 484 Interpretive Statements SINUS TACHYCARDIA PROBABLE INFERIOR MYOCARDIAL INFARCTION [35 ms Q WAVE IN II/aVF], PROBABLY OLD MODERATE T-WAVE ABNORMALITY, CONSIDER ANTEROLATERAL ISCHEMIA [-0.1+ mV T WAVE IN V3-V6] Compared to ECG 06/09/2020 11:04:51 No significant changes Electronically Signed On 06-10-2020 20:10:52 FORMING MACHINE UPKEEP MECHANIC by Letty Sims M.D. [id number]
--- NOTE | 2020-06-09 15:18 | PC.SLP ---
TAIL EDGER attempted to evaluate pt, however, the pt was not alert, and was not able to participate at this time.
--- NOTE | 2020-06-09 15:53 | PC.NURSE ---
Patient had ambrocio inserted when admitted to floor from ED. Patent and draining.
[2020-06-09] MEDS: levETIRAcetam 750 MG in sodium chloride 0.9% (100 ml) 100 ML 430 MG IV (16:17)
[2020-06-09] MEDS: dexamethasone 4 mg/mL INJ 2 MG IVP (17:32)
[2020-06-10] VITALS (7 sets, daily range): BP systolic 95–108; BP diastolic 60–70; PULSE 74–93; RESP 16–18; TEMP 36.3–36.9; O2SAT 91–98
[2020-06-10 05:05] LABS: Basophils % 0.2 %; Eosinophils % 0.1 %; Hematocrit 34.1 % (37.0-47.0); Hemoglobin 10.5 g/dL (11.5-15.3); Lymphocytes # 0.8 10^3/uL (0.8-4.8); Lymphocytes % 7.3 %; Mean Corpuscular HGB Conc 30.8 g/dL (30.0-36.0); Mean Corpuscular Hemoglobin 29.6 pg (28.0-34.0); Mean Corpuscular Volume 96.1 fL (81-99); Mean Platelet Volume 11.6 fL (7.4-10.4); Monocytes # 0.3 10^3/uL (0.2-0.9); Monocytes % 2.5 %; Neutrophils # 9.83 10^3/uL (1.8-7.7); Neutrophils % 89.4 %; Nucleated Red Blood Cells % 0 %; Platelet Count 242 10^3/cmm (130-400); Red Blood Count 3.55 10^6/uL (4.1-5.3); Red Cell Distribution Width 14.2 % (12.1-15.1)
[2020-06-10 05:32] LABS: Alanine Aminotransferase 12 U/L (0-33); Albumin Level 2.8 g/dL (3.5-5.2); Alkaline Phosphatase 88 IU/L (35-105); Blood Urea Nitrogen 14 mg/dL (8-23); Calcium 8.5 mg/dL (8.5-10.5); Carbon Dioxide 25 mmol/L (22-29); Chloride 105 mmol/L (98-107); Glucose 207 mg/dL (65-115); Osmolality Calculated 295 mOsm/kg (285-295); Sodium 139 mmol/L (136-145); Total Bilirubin 0.6 mg/dL (0.15-1.2); Total Protein 5.8 g/dL (6.6-8.7)
[2020-06-10] MEDS: D5-NS 0.45% + KCL 20 mEq 20 MEQ/1,000 ML BAG 125 MEQ IV (05:32)
[2020-06-10] MEDS: levETIRAcetam 750 MG in sodium chloride 0.9% (100 ml) 100 ML 430 MG IV ×2 (05:33→18:27)
[2020-06-10 05:34] LABS: Anion Gap 12.8 (5-19); Potassium 3.8 mmol/L (3.5-5.1)
[2020-06-10 05:35] LABS: Aspartate Amino Transferase 35 U/L (0-32)
[2020-06-10 05:47] LABS: Creatine Phosphokinase 1125 U/L (26-192)
[2020-06-10 05:51] LABS: Slide Review Slide Review Perform
--- NOTE | 2020-06-10 08:21 | P.PN_ITS ---
Subjective Subjective: Interval history: Marjorie is difficult to arouse this morning. She spontaneously moves all of her extremities, and arouses briefly with pain. She is not communicative. Medications: Reviewed: Yes Vitals/I&O/Wt Last Vital Signs Temp 97.8 F 06/10/20 03:42 Pulse 85 06/10/20 03:42 Resp 16 06/10/20 03:42 BP 100/69 06/10/20 03:42 Pulse Ox 92 06/10/20 03:42 06/09/20 06/10/20 06/10/20 22:59 06:59 14:59 Intake Total 1107.5 / 1107.5 712.5 / 1820.0 Output Total 500 / 500 400 / 900 Balance 607.5 / 607.5 312.5 / 920.0 Weight last 48 hrs Weight 190 kg Physical Exam Narrative: EXAM NARRATIVE: General exam is a nonverbal white female who will spontaneously move all of her extremities. She stares straight ahead. HEENT: Pupils equally round. Cardiovascular regular rhythm, slightly high rate at 105 while I am in the room. No murmur Lungs clear no wheezing or crackles Abdomen is soft with positive bowel sounds. Extremities no cyanosis clubbing or edema, cap refill brisk Neurologic: Will not cooperate with exam but spontaneously moving all 4 extremities. Awakens briefly to pain. No facial droop. Urinary Catheter Management^: Olson: Cath Placed During This Visit: yes Reason for Continuing Indwelling Catheter: Accurate Measurement of Urinary Output in Critically Ill Patients Urinary Catheter Date of Insertion: 06/09/20 Urinary Catheter Time of Insertion: 09:00 Data : 06/10/20 04:28 06/10/20 04:28 Micro: Microbiology 06/09/20 14:01 Blood Culture - Preliminary Blood SPECIMEN COLLECTED 06/09/20 09:30 Blood Culture - Preliminary Blood SPECIMEN COLLECTED A&P Assessment and plan (1) Altered mental status: Etiology unclear. Although no overt seizure activity must still consider this as during 2 concerning episodes elevation of heart rate and decreased saturation occurred. CK is also noted to be elevated. 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 Cannot completely rule out recurrent CVA. Reviewed in detail concerns with . He does not want any significant invasive testing currently, and wants us to medically manage her condition. At this point do not plan on EEG. Continue Keppra currently as seizure is still a possibility. Will convert to p.o. when able Status: Acute Qualifiers: Altered mental status type: unspecified Qualified Code(s): R41.82 - Altered mental status, unspecified (2) Dehydration: Continue hydration. Reduce fluids to 100 cc an hour. Status: Acute (3) CVA (cerebral vascular accident): Continue hydration DVT prophylaxis with Lovenox Resume Plavix and aspirin when able PT/ST/OT. N.p.o. until cleared by ST Status: Acute (4) Hypokalemia: This has been supplemented. Magnesium level has been checked, and normal. Status: Acute (5) Abnormal EKG: No further work-up planned secondary to other comorbidities. Discussed in detail with . We will continue Plavix, aspirin when able. Will reinitiate metoprolol, lower dose when able but secondary to borderline blood pressure and acceptable heart rate will not at this time. 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 Continue dexamethasone, twice normal dose Continue IV thyroid hormone. T4 level, free was checked and normal If blood pressure remains lower, consider addition of fludrocortisone when able to give p.o. Status: Acute (7) Rhabdomyolysis: Improved Status: Acute Additional A&P Information Abnormal LFTs. Improving. Continue to hold statin. Anemia. No evidence of active bleeding. Repeat CBC tomorrow. Hypertension. Borderline hypotensive now. Holding blood pressure medication History of diastolic dysfunction. No evidence of heart failure clinically. Allow natural . Discussed in detail with Adarsh for DVT prophylaxis We will have to review exam later this afternoon to determine if further hospitalization is needed. If she does not become alert, or is able to eat she will need further hospitalization for continued hydration and planning with family if feeding tube is indicated. Attestations Medical Necessity Statement*: May need further hospitalization, depending upon repeat exam this afternoon. Coding Level of Care Code Acute Hoisting Machine Operator for Vu Ochoa Diagnoses Altered mental status R41.82 Altered mental status type: unspecified Dehydration E86.0 CVA (cerebral vascular accident) I63.9 Hypokalemia E87.6 Abnormal EKG R94.31 Panhypopituitarism E23.0 Rhabdomyolysis M62.82
--- NOTE | 2020-06-10 08:49 | PC.OT ---
OT note: Attempted OT eval but unable to rouse pt to participate. She was noted with flexed RUE elbow and therapist attempted to extend as IV alerted for downstream occlusion and noted with increased tone in RUE elbow but pt appeared to remain sleeping soundly, snoring. Will attempt again later as able. Discussed with nurse.
[2020-06-10] MEDS: levothyroxine 100 mcg SDV 50 MCG IVP (09:58)
[2020-06-10 10:40] LABS: Ammonia 13 umol/L (11-51)
--- NOTE | 2020-06-10 13:01 | PC.SLP ---
MUSIC EDUCATION ADJUNCT PROFESSOR attempted to evaluate the pt, however, appropriate alertness could not be established, and the pt was unable to participate.
[2020-06-10] MEDS: pneumococcal (23 valent) SDV 0.5 mL IM (13:55)
[2020-06-10] MEDS: sodium chlor 0.9% + KCl 20 mEq 20 MEQ/1,000 ML BAG 75 MEQ IV (14:04)
[2020-06-10] MEDS: enoxaparin 30 mg/0.3 mL Syringe SUBCUT (15:34)
[2020-06-10] MEDS: famotidine 20 mg Tablet PO (17:04)
[2020-06-10] MEDS: dexamethasone 4 mg/mL INJ 2 MG IVP (17:04)
[2020-06-11] VITALS (10 sets, daily range): BP systolic 93–128; BP diastolic 60–85; PULSE 67–90; RESP 16–18; TEMP 36.3–37.2; O2SAT 91–98
[2020-06-11 05:18] LABS: Basophils % 0.1 %; Hematocrit 40.3 % (37.0-47.0); Hemoglobin 12.5 g/dL (11.5-15.3); Lymphocytes # 0.9 10^3/uL (0.8-4.8); Lymphocytes % 5.3 %; Mean Corpuscular Hemoglobin 29.7 pg (28.0-34.0); Mean Corpuscular Volume 95.7 fL (81-99); Mean Platelet Volume 11.6 fL (7.4-10.4); Monocytes # 0.3 10^3/uL (0.2-0.9); Monocytes % 1.7 %; Neutrophils # 14.88 10^3/uL (1.8-7.7); Neutrophils % 92.2 %; Nucleated Red Blood Cells % 0 %; Platelet Count 197 10^3/cmm (130-400); Red Blood Count 4.21 10^6/uL (4.1-5.3); Red Cell Distribution Width 13.9 % (12.1-15.1); White Blood Count 16.1 10^3/uL (4.0-10.0)
[2020-06-11 05:31] LABS: Alanine Aminotransferase 12 U/L (0-33); Albumin Level 3.2 g/dL (3.5-5.2); Alkaline Phosphatase 94 IU/L (35-105); Anion Gap 11.8 (5-19); Aspartate Amino Transferase 27 U/L (0-32); Blood Urea Nitrogen 14 mg/dL (8-23); Calcium 9.3 mg/dL (8.5-10.5); Carbon Dioxide 27 mmol/L (22-29); Chloride 108 mmol/L (98-107); Glucose 154 mg/dL (65-115); Osmolality Calculated 300 mOsm/kg (285-295); Potassium 3.8 mmol/L (3.5-5.1); Sodium 143 mmol/L (136-145); Total Bilirubin 0.3 mg/dL (0.15-1.2); Total Protein 6.2 g/dL (6.6-8.7)
[2020-06-11] MEDS: levETIRAcetam 750 MG in sodium chloride 0.9% (100 ml) 100 ML 430 MG IV (06:36)
--- NOTE | 2020-06-11 07:49 | CT_ITS ---
WS: [id number] CT CHEST, ABDOMEN AND PELVIS WITHOUT CONTRAST. HISTORY: Bacteremia. TECHNIQUE: Contiguous 5 mm axial imaging performed through the chest, abdomen and pelvis without IV c ontrast, oral contrast has not been provided. Coronal and sagittal reformats chest. Coronal and sagit marlen reformats through the abdomen and pelvis. All CT scans at [facility] use at least one of these dose optimization techniques: automated exposure control; mA and/or kV adjustment per patie nt size (includes targeted exams where dose is matched to clinical indication); or iterative reconstr uction. CONTRAST: None DLP: 2186.37 mGy.cm COMPARISON: 12/02/2018 and 11/12/[address]: Lung biopsy decreased. Mild haziness throughout both lungs is probably due to motion and po or inspiration. Mild pleural thickening at the lung bases but no effusion. No dense consolidation or pneumonia. Mild atherosclerosis aorta. Heart is normal size. No adenopathy appreciated. Surgical sutu res are noted in the RIGHT axilla. Pleural plaques noted in the anterior RIGHT thorax. Abdomen CT: Prior cholecystectomy. Normal size liver and spleen. Moderate atrophy of the pancreas wit hout acute pancreatitis. No adrenal mass. No renal obstruction or mass. No significant perirenal stra nding. Mild atherosclerosis aorta with no aneurysm. No ascites. No GI tract obstruction. The appendix is been removed. There are several diverticula in t he descending and sigmoid colon without adjacent inflammation. Pelvic CT: Nondistended urinary bladder. There is a Olson catheter present. Prior hysterectomy. Incre ase in thoracic kyphosis. Mild degenerative disc disease throughout the thoracic and lumbar spines. N o fracture or bone destruction. CT/CT chest abd pel wo con IMPRESSION: 1. No evidence for acute process within the chest, abdomen or pelvis. 2. No pneumonia. 3. Diverticulosis without acute diverticulitis. 4. Prior cholecystectomy and appendectomy.
[2020-06-11] MEDS: fludrocortisone 0.1 mg Tablet PO (08:08)
[2020-06-11] MEDS: dexamethasone 4 mg/mL INJ 2 MG PO (08:10)
[2020-06-11] MEDS: famotidine 20 mg Tablet PO ×2 (08:11→17:30)
[2020-06-11] MEDS: aspirin 81 mg EC Tablet PO (08:11)
[2020-06-11] MEDS: clopidogrel 75 mg Tablet PO (08:11)
[2020-06-11] MEDS: vancomycin 1,500 MG/300 ML PIGGYBACK 200 MG IV ×2 (08:22→17:30)
--- NOTE | 2020-06-11 09:37 | P.PN_ITS ---
Subjective Subjective: Interval history: Marjorie wakes up when I enter the room. She is conversant and can answer a few questions yes or no but other language is somewhat difficult to decipher. She is saying multiple words Medications: Reviewed: Yes Vitals/I&O/Wt Last Vital Signs Temp 98.9 F 06/11/20 08:00 Pulse 80 06/11/20 08:00 Resp 16 06/11/20 08:00 BP 116/76 06/11/20 08:00 Pulse Ox 93 06/11/20 08:00 06/10/20 06/11/20 06/11/20 22:59 06:59 14:59 Intake Total 841.667 / 1256.250 Output Total 350 / 350 250 / 600 Balance 491.667 / 906.250 -250 / 656.250 Physical Exam Narrative: EXAM NARRATIVE: General exam multiple words, alert, cooperative with exam and can follow commands. Cardiovascular regular rhythm, slightly high rate at 105 while I am in the room. No murmur Lungs clear no wheezing or crackles Abdomen soft with some tenderness seems to be present in the left lower quadrant Extremities no cyanosis clubbing or edema, cap refill brisk Neurologic: Moving all extremities. Babbles. Awake and can follow some directions. Urinary Catheter Management^: Olson: Cath Placed During This Visit: yes Reason for Continuing Indwelling Catheter: Accurate Measurement of Urinary Output in Critically Ill Patients Urinary Catheter Date of Insertion: 06/09/20 Urinary Catheter Time of Insertion: 09:00 Data : 06/11/20 04:28 06/11/20 04:28 Micro: Microbiology 06/09/20 09:30 Blood Culture - Preliminary Blood Gram positive cocci 06/09/20 14:01 Blood Culture - Preliminary Blood Gram positive cocci A&P Assessment and plan (1) Altered mental status: Etiology unclear. Although no overt seizure activity must still consider this as during 2 concerning episodes elevation of heart rate and decreased saturation occurred. CK is also noted to be elevated. 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 Cannot completely rule out recurrent CVA. Reviewed in detail concerns with . He does not want any significant invasive testing currently, and wants us to medically manage her condition. At this point do not plan on EEG. She has now woken up and doing better, although has word salad. Convert many of her medications to p.o. including Keppra Status: Acute Qualifiers: Altered mental status type: unspecified Qualified Code(s): R41.82 - Altered mental status, unspecified (2) Dehydration: Continue hydration. Reduce fluids to 50 cc an hour and see if she can keep up orally Status: Acute (3) CVA (cerebral vascular accident): Continue hydration DVT prophylaxis with Lovenox Resume Plavix and aspirin PT/ST/OT. She is now able to tolerate a dysphagia diet Status: Acute (4) Hypokalemia: This has been supplemented and is normal. Magnesium level has been checked, and normal. Status: Acute (5) Abnormal EKG: No further work-up planned secondary to other comorbidities. Discussed in detail with . We will continue Plavix, aspirin when able. Will reinitiate metoprolol, lower dose when able but secondary to borderline blood pressure and acceptable heart rate will not at this time. 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 Continue dexamethasone, twice normal dose, at 2 mg once daily Continue thyroid hormone. Change to p.o. Note the dose is increased to 25 mcg T4 level, free was checked and normal Add fludrocortisone Status: Acute (7) Rhabdomyolysis: Improved. CK level does not need rechecked Status: Acute (8) Bacteremia: Blood culture from admission has now grown 3/4 bottles gram-positive cocci. Repeat blood culture along with urine culture CT chest abdomen pelvis as patient cannot communicate well enough to explain symptomatology Vancomycin dosing per pharmacy Another repeat culture tomorrow as the one today will be drawn prior to starting antibiotics. Status: Acute Additional A&P Information Abnormal LFTs. Improving. Continue to hold statin. Anemia. No evidence of active bleeding. Hemoglobin today improved Hypertension. Blood pressure is low normal. Medication stopped. History of diastolic dysfunction. No evidence of heart failure clinically. Allow natural . Discussed in detail with Sagarx for DVT prophylaxis Attestations Medical Necessity Statement*: Needs continued hospitalization for close follow-up of bacteremia with delineation of cause. Coding Level of Care Code Acute Cuff Turner Machine Operator for Vu Fwparesh Diagnoses Altered mental status R41.82 Altered mental status type: unspecified Dehydration E86.0 CVA (cerebral vascular accident) I63.9 Hypokalemia E87.6 Abnormal EKG R94.31 Panhypopituitarism E23.0 Rhabdomyolysis M62.82 Bacteremia R78.81
[2020-06-11] MEDS: enoxaparin 30 mg/0.3 mL Syringe SUBCUT (15:23)
[2020-06-11] MEDS: levETIRAcetam 500 mg Tablet 750 MG PO (17:30)
[2020-06-12] MEDS: vancomycin 1,500 MG/300 ML PIGGYBACK 200 MG IV ×2 (01:06→22:00)
[2020-06-12 03:52] VITALS: BP 110/65; PULSE 77; RESP 17; TEMP 36.6; O2SAT 92
[2020-06-12] MEDS: levothyroxine 150 mcg Tablet 75 MCG PO (06:00)
[2020-06-12 07:50] VITALS: BP 129/76; PULSE 80; RESP 16; TEMP 36.3; O2SAT 94
[2020-06-12 08:26] LABS: Basophils % 0.1 %; Hematocrit 38.9 % (37.0-47.0); Lymphocytes # 1.1 10^3/uL (0.8-4.8); Lymphocytes % 10.6 %; Mean Corpuscular HGB Conc 30.8 g/dL (30.0-36.0); Mean Corpuscular Hemoglobin 29.8 pg (28.0-34.0); Mean Corpuscular Volume 96.5 fL (81-99); Mean Platelet Volume 11.2 fL (7.4-10.4); Monocytes # 0.4 10^3/uL (0.2-0.9); Monocytes % 4.4 %; Neutrophils # 8.43 10^3/uL (1.8-7.7); Neutrophils % 83.9 %; Nucleated Red Blood Cells % 0 %; Platelet Count 182 10^3/cmm (130-400); Red Blood Count 4.03 10^6/uL (4.1-5.3); Red Cell Distribution Width 13.7 % (12.1-15.1); White Blood Count 10.1 10^3/uL (4.0-10.0)
[2020-06-12] MEDS: dexamethasone 4 mg/mL INJ 2 MG PO (08:31)
[2020-06-12] MEDS: clopidogrel 75 mg Tablet PO (08:32)
[2020-06-12] MEDS: levETIRAcetam 500 mg Tablet 750 MG PO ×2 (08:32→18:06)
[2020-06-12] MEDS: aspirin 81 mg EC Tablet PO (08:32)
[2020-06-12] MEDS: famotidine 20 mg Tablet PO ×2 (08:32→18:06)
[2020-06-12] MEDS: fludrocortisone 0.1 mg Tablet PO (08:32)
[2020-06-12 08:43] LABS: Alanine Aminotransferase 12 U/L (0-33); Albumin Level 3.1 g/dL (3.5-5.2); Alkaline Phosphatase 79 IU/L (35-105); Anion Gap 13.2 (5-19); Aspartate Amino Transferase 20 U/L (0-32); Blood Urea Nitrogen 11 mg/dL (8-23); Calcium 8.8 mg/dL (8.5-10.5); Carbon Dioxide 25 mmol/L (22-29); Chloride 107 mmol/L (98-107); Globulin 2.5 g/dL (1.3-4.6); Glucose 95 mg/dL (65-115); Osmolality Calculated 293 mOsm/kg (285-295); Potassium 3.2 mmol/L (3.5-5.1); Sodium 142 mmol/L (136-145); Total Bilirubin 0.3 mg/dL (0.15-1.2); Total Protein 5.6 g/dL (6.6-8.7)
[2020-06-12 09:04] LABS: Vancomycin Trough 30.3 ug/mL (10-15)
[2020-06-12 12:00] VITALS: BP 119/79; PULSE 95; RESP 16; TEMP 36.3; O2SAT 97
--- NOTE | 2020-06-12 12:39 | P.PN_ITS ---
Subjective Subjective: Interval history: Marjorie is awake, and being fed when I visited her. Medications: Reviewed: Yes Vitals/I&O/Wt Last Vital Signs Temp 97.3 F L 06/12/20 12:00 Pulse 95 06/12/20 12:00 Resp 16 06/12/20 12:00 BP 119/79 06/12/20 12:00 Pulse Ox 97 06/12/20 12:00 06/11/20 06/12/20 06/12/20 22:59 06:59 14:59 Intake Total 580 / 1921.25 120 / 120 Output Total 100 / 100 200 / 300 400 / 400 Balance 480 / 1821.25 -200 / 1621.25 -280 / -280 Physical Exam Narrative: EXAM NARRATIVE: General exam no apparent distress Cardiovascular regular rate and rhythm, no murmur Lungs clear Abdomen is soft, positive bowel sounds Extremities no cyanosis clubbing or edema Neurologic: Word salad, but moving all 4 extremities without difficulty. Urinary Catheter Management^: Olson: Cath Placed During This Visit: yes Reason for Continuing Indwelling Catheter: Accurate Measurement of Urinary Output in Critically Ill Patients Urinary Catheter Date of Insertion: 06/09/20 Urinary Catheter Time of Insertion: 09:00 Data : 06/12/20 06:59 06/12/20 06:59 Micro: Microbiology 06/11/20 08:30 Urine Culture - Preliminary Urine Catheterized Gram Negative Rods 06/12/20 08:15 Blood Culture - Preliminary Blood SPECIMEN COLLECTED 06/12/20 06:59 Blood Culture - Preliminary Blood SPECIMEN COLLECTED 06/09/20 09:30 Blood Culture - Preliminary Blood Staphylococcus sp coag neg 06/09/20 14:01 Blood Culture - Preliminary Blood Staphylococcus sp coag neg A&P Assessment and plan (1) Altered mental status: Etiology unclear. Although no overt seizure activity must still consider this as during 2 concerning episodes elevation of heart rate and decreased sa turation occurred. CK is also noted to be elevated. 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 Cannot completely rule out recurrent CVA. Reviewed in detail concerns with . He does not want any significant invasive testing currently, and wants us to medically manage her condition. At this point do not plan on EEG. She has now woken up and doing better, although has word salad. This was her baseline at her last discharge. Convert many of her medications to p.o. including Keppra Status: Acute Qualifiers: Altered mental status type: unspecified Qualified Code(s): R41.82 - Altered mental status, unspecified (2) Dehydration: Resolved. Discontinue IV hydration Status: Acute (3) CVA (cerebral vascular accident): Continue hydration DVT prophylaxis with Lovenox Continue Plavix and aspirin PT/ST/OT. She is now able to tolerate a dysphagia diet Status: Acute (4) Hypokalemia: Repeat supplementation Magnesium level has been checked, and normal. Status: Acute (5) Abnormal EKG: No further work-up planned secondary to other comorbidities. Discussed in detail with . Continue Plavix, aspirin . 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 Continue dexamethasone, but reduce dose to 1 mg daily Continue thyroid hormone. Change to p.o. Note the dose is increased to 25 mcg T4 level, free was checked and normal Add fludrocortisone Status: Acute (7) Rhabdomyolysis: Improved. CK level does not need rechecked Status: Acute (8) Bacteremia: Blood culture from admission has now grown 3/4 bottles staph epi. This may still be contamination. She has no central lines. Repeat blood culture done prior to initiation of antibiotics appears to have been canceled by lab. Culture was obtained today but vancomycin had been initiated prior to this. Urine culture obtained is growing gram-negative bruce. She appears to be asymptomatic. Await identification and sensitivity. CT chest abdomen pelvis did not demonstrate any acute process to explain bactere aurora Vancomycin dosing per pharmacy Another repeat culture tomorrow as the one today will be drawn prior to starting antibiotics. Status: Acute Additional A&P Information Abnormal LFTs. Improved. Statin held on admission secondary to this. Anemia. No evidence of active bleeding. Hemoglobin stable Hypertension. Blood pressure is low normal. Medication stopped. History of diastolic dysfunction. No evidence of heart failure clinically. Allow natural . Discussed in detail with Adarsh for DVT prophylaxis Attestations Medical Necessity Statement*: Needs continued hospitalization, for close fol low-up of bacteremia and continued IV antibiotics. Coding Level of Care Code Acute Wrapper Off for Chg Fwd Diagnoses Altered mental status R41.82 Altered mental status type: unspecified Dehydration E86.0 CVA (cerebral vascular accident) I63.9 Hypokalemia E87.6 Abnormal EKG R94.31 Panhypopituitarism E23.0 Rhabdomyolysis M62.82 Bacteremia R78.81
[2020-06-12] MEDS: potassium chloride ER 20 mEq Tablet 40 MEQ PO (14:06)
[2020-06-12] MEDS: dexamethasone 4 mg/mL INJ 1 MG PO (14:08)
[2020-06-12] MEDS: enoxaparin 30 mg/0.3 mL Syringe SUBCUT (15:13)
[2020-06-12 15:46] VITALS: BP 125/71; PULSE 92; RESP 17; TEMP 36.3; O2SAT 94
[2020-06-12 19:19] VITALS: BP 128/69; PULSE 98; RESP 24; TEMP 36.4; O2SAT 94
[2020-06-12 23:39] VITALS: BP 108/71; PULSE 75; RESP 18; TEMP 36.3; O2SAT 94
[2020-06-13] VITALS (7 sets, daily range): BP systolic 116–143; BP diastolic 71–82; PULSE 83–98; RESP 16–19; TEMP 36.1–36.6; O2SAT 93–95
[2020-06-13] MEDS: levothyroxine 150 mcg Tablet 75 MCG PO (06:10)
--- NOTE | 2020-06-13 07:19 | PC.SOCIAL ---
IMM Update Pg.2 of IMM updated. Copy left at bedside for patient.
[2020-06-13] MEDS: famotidine 20 mg Tablet PO ×2 (08:58→17:31)
[2020-06-13] MEDS: aspirin 81 mg EC Tablet PO (08:58)
[2020-06-13] MEDS: levETIRAcetam 500 mg Tablet 750 MG PO ×2 (08:58→17:30)
[2020-06-13] MEDS: clopidogrel 75 mg Tablet PO (08:58)
[2020-06-13] MEDS: fludrocortisone 0.1 mg Tablet PO (08:58)
[2020-06-13] MEDS: vancomycin 1,500 MG/300 ML PIGGYBACK 200 MG IV (09:04)
--- NOTE | 2020-06-13 09:16 | PC.NURSE ---
Patient sitting up in chair for breakfast, patient is a total assist feeder, on first bite patient coughed but subsequent bites patient was able to tolerate fine, decreased appetite lost interest after about 5 bites, poor oral intake. Call light in reach, chair alarm activated.
[2020-06-13] MEDS: cefdinir 300 MG CAPSULE PO ×2 (10:52→17:31)
--- NOTE | 2020-06-13 10:55 | PC.NURSE ---
Assisted back to bed from chair X2 min assist. call light in reach, bed alarm activated.
[2020-06-13] MEDS: dexamethasone 4 mg/mL INJ 1 MG PO (13:06)
[2020-06-13] MEDS: enoxaparin 30 mg/0.3 mL Syringe SUBCUT (14:01)
--- NOTE | 2020-06-13 14:24 | PM.PN ---
Subjective Subjective: Interval history: Patient is awake when I enter the room but not as verbal. Physical therapy reports she is a full assist today. Medications: Reviewed: Yes Vitals/I&O/Wt Last Vital Signs Temp 97.3 F L 06/13/20 12:00 Pulse 83 06/13/20 12:00 Resp 19 H 06/13/20 12:00 BP 116/71 06/13/20 12:00 Pulse Ox 95 06/13/20 12:00 06/12/20 06/13/20 06/13/20 22:59 06:59 14:59 Intake Total 240 / 600 300 / 900 50 / 50 Output Total 1000 / 1400 475 / 1875 1000 / 1000 Balance -760 / -800 -175 / -975 -950 / -950 Physical Exam Narrative: EXAM NARRATIVE: General exam no apparent distress Cardiovascular regular rate and rhythm, no murmur Lungs clear Abdomen is soft, positive bowel sounds Extremities no cyanosis clubbing or edema Neurologic: Mumbles a little bit but no clearly decipherable words. Urinary Catheter Management^: Olson: Cath Placed During This Visit: yes Reason for Continuing Indwelling Catheter: Acute Urinary Retention or Obstruction Urinary Catheter Date of Insertion: 06/09/20 Urinary Catheter Time of Insertion: 09:00 Data : 06/12/20 06:59 06/12/20 06:59 Micro: Microbiology 06/11/20 08:30 Urine Culture - Preliminary Urine Catheterized Escherichia coli 06/12/20 08:15 Blood Culture - Preliminary Blood NEGATIVE TO DATE 06/12/20 06:59 Blood Culture - Preliminary Blood NEGATIVE TO DATE 06/09/20 09:30 Blood Culture - Preliminary Blood Staphylococcus epidermidis 06/09/20 14:01 Blood Culture - Preliminary Blood Staphylococcus epidermidis A&P Assessment and plan (1) Altered mental status: Etiology unclear. Although no overt seizure activity must still consider this as during 2 concerning episodes elevation of heart rate and decreased saturation occurred. CK is also noted to be elevated. 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 Cannot completely rule out recurrent CVA. Reviewed in detail concerns with . He does not want any significant invasive testing currently, and wants us to medically manage her condition. At this point do not plan on EEG. Keppra was initiated on admission. She has now woken up since admission and her ability to participate in conversation and therapy varies on a day-to-day basis. would like her to go home with home health and does not want her placed in skilled care again. Status: Acute Qualifiers: Altered mental status type: unspecified Qualified Code(s): R41.82 - Altered mental status, unspecified (2) Dehydration: Resolved. Discontinue IV hydration Status: Acute (3) CVA (cerebral vascular accident): DVT prophylaxis with Lovenox Continue Plavix and aspirin PT/ST/OT. She is now able to tolerate a dysphagia diet Status: Acute (4) Hypokalemia: Repeat supplementation Magnesium level has been checked, and normal. Status: Acute (5) Abnormal EKG: No further work-up planned secondary to other comorbidities. Discussed in detail with . Continue Plavix, aspirin . 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 This was given at stress dose until June 12 and converted to home dose of 1 mg Continue thyroid hormone. Change to p.o. Note the dose was increased to 75 mcg T4 level, free was checked and normal Fludrocortisone was added secondary to soft blood pressures, history of panhypopituitarism and she appears to be tolerating this well with no evidence of fluid overload Status: Acute (7) Rhabdomyolysis: Improved. CK level does not need rechecked Status: Acute (8) Bacteremia: Blood culture from admission has now grown 3/4 bottles staph epi. I believe this is likely contamination. She has no central lines last hospital stay. In talking with microbiology, initial blood culture was obtained peripherally and second blood culture drawn from IV. I believe both of these blood cultures were drawn from the same area. Therefore vancomycin is discontinued today Urine culture is growing gram-negative bruce currently. Will place patient on cefdinir. Unsure if this is truly a pathogen or asymptomatic bacteriuria. Either way it is safer to treat at this point as patient cannot relate symptoms. Awaiting identification and sensitivity. Preliminary is E. coli. CT chest abdomen pelvis did not demonstrate any acute process to explain bacteremia A repeat blood culture was ordered prior to starting vancomycin but canceled by laboratory. Further cultures have not shown any growth to date. Status: Acute Additional A&P Information Abnormal LFTs. Improved. Statin held on admission secondary to this. Anemia. No evidence of active bleeding. Hemoglobin stable Hypertension. Blood pressure is low normal. Medication stopped. History of diastolic dysfunction. No evidence of heart failure clinically. Allow natural . Discussed in detail with Sagarx for DVT prophylaxis 06/13 discontinued vancomycin. Awaiting urine culture results. Patient less interactive today, and needs further therapy prior to discharge home with home health and therapies. Discussed with family and they are trying to arrange care at Daughter- in- Law's house hopefully by Tuesday. Attestations Medical Necessity Statement*: Needs continued hospitalization, for further therapy pending discharge home with home health. Awaiting urine culture results. Coding Level of Care Code Acute Supervisor Asbestos Removal for [facility] Fwd Diagnoses Altered mental status R41.82 Altered mental status type: unspecified Dehydration E86.0 CVA (cerebral vascular accident) I63.9 Hypokalemia E87.6 Abnormal EKG R94.31 Panhypopituitarism E23.0 Rhabdomyolysis M62.82 Bacteremia R78.81
[2020-06-13] MEDS: potassium chloride ER 20 mEq Tablet 40 MEQ PO (17:30)
[2020-06-14] VITALS: BP 143/89; PULSE 88; RESP 18; TEMP 36.5; O2SAT 93
[2020-06-14 03:35] VITALS: BP 120/73; PULSE 73; RESP 16; TEMP 36.2; O2SAT 93
[2020-06-14] MEDS: levothyroxine 150 mcg Tablet 75 MCG PO (06:08)
[2020-06-14 06:23] LABS: Basophils % 0.1 %; Eosinophils # 0.1 10^3/uL (0.0-0.8); Eosinophils % 0.9 %; Hematocrit 38.9 % (37.0-47.0); Hemoglobin 12.5 g/dL (11.5-15.3); Lymphocytes # 1.4 10^3/uL (0.8-4.8); Lymphocytes % 20.1 %; Mean Corpuscular HGB Conc 32.1 g/dL (30.0-36.0); Mean Corpuscular Hemoglobin 29.9 pg (28.0-34.0); Mean Corpuscular Volume 93.1 fL (81-99); Mean Platelet Volume 10.6 fL (7.4-10.4); Monocytes # 0.5 10^3/uL (0.2-0.9); Monocytes % 6.6 %; Neutrophils # 4.97 10^3/uL (1.8-7.7); Neutrophils % 71.3 %; Nucleated Red Blood Cells % 0.4 %; Platelet Count 170 10^3/cmm (130-400); Red Blood Count 4.18 10^6/uL (4.1-5.3); Red Cell Distribution Width 13.7 % (12.1-15.1)
[2020-06-14 07:55] VITALS: BP 138/79; PULSE 89; RESP 18; TEMP 36.8; O2SAT 91
[2020-06-14 10:37] LABS: Alanine Aminotransferase 32 U/L (0-33); Albumin Level 3.3 g/dL (3.5-5.2); Alkaline Phosphatase 97 IU/L (35-105); Aspartate Amino Transferase 44 U/L (0-32); Blood Urea Nitrogen 8 mg/dL (8-23); Calcium 9.1 mg/dL (8.5-10.5); Carbon Dioxide 32 mmol/L (22-29); Chloride 104 mmol/L (98-107); Globulin 2.8 g/dL (1.3-4.6); Glucose 97 mg/dL (65-115); Osmolality Calculated 296 mOsm/kg (285-295); Sodium 144 mmol/L (136-145); Total Bilirubin 0.6 mg/dL (0.15-1.2); Total Protein 6.1 g/dL (6.6-8.7)
--- NOTE | 2020-06-14 10:44 | MRR_ITS ---
PROCEDURE INFORMATION: Exam: MR Head Without Contrast Exam date and time: 06/14/2020 10:49 AM Age: 69 years old Clinical indication: Altered mental status/memory loss; Confusion or disorientation; Additional info: Decline in status TECHNIQUE: Imaging protocol: MR of the head without contrast. COMPARISON: MR head wo con* [id number] 05/29/2020 6:35 PM FINDINGS: Limitations: The examination is suboptimal due to prominent patient motion artifact on all the series. Brain: There is abnormal signal intensity in the paramedian portion of the thalami bilaterally. This was seen on the previous MR scan from 05/29/2020 on diffusion images. These findings are consistent with bilateral evolving thalamic infarcts. No intracranial hemorrhage mass effect or midline shift is seen. There is generalized chronic atrophy with prominence of the ventricles and sulci. Scattered white matter signal intensities are present from chronic small vessel white matter ischemia. Cerebral ventricles: Prominence of the ventricles due to atrophy.. Bones/joints: Unremarkable. Paranasal sinuses: Normal as visualized. No acute sinusitis. Mastoid air cells: Normal as visualized. No mastoid effusion. Orbits: Unremarkable. Soft tissues: Unremarkable. MR/MR head wo con* [id number] IMPRESSION: 1. The examination is limited due to patient motion artifact. 2. 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 3. Generalized chronic atrophy with chronic white matter ischemic changes.
[2020-06-14 10:52] LABS: Anion Gap 11.3 (5-19); Potassium 3.3 mmol/L (3.5-5.1)
[2020-06-14 12:00] VITALS: BP 112/73; PULSE 86; RESP 18; TEMP 36.3; O2SAT 90
--- NOTE | 2020-06-14 14:27 | PM.PN ---
Subjective Subjective: Interval history: The patient has aphasia and is unable to provide any complaints or history. She is not in any distress. The nurse earlier today was concerned about increased lethargy. We sent her to MRI. It shows evolving bilateral thalamic CVA and no other acute changes. Medications: Reviewed: Yes Medication Review Details: Generic Name Dose Route Start Last Admin Trade Name Vinny PRN Reason Stop Dose Admin Aspirin 81 mg 06/11/20 09:00 06/14/20 13:28 Aspirin 81 Mg Ec Tablet PO Not Given DAILY [facility] Cefdinir 300 mg 06/13/20 18:00 06/14/20 13:28 Cefdinir 300 Mg Capsule PO Not Given BID [facility] Protocol Clopidogrel Bisulf ate 75 mg 06/11/20 09:00 06/14/20 13:28 Clopidogrel 75 M g Tablet PO Not Given DAILY [facility] Dexamethasone 1 mg 06/12/20 12:50 06/13/20 13:06 Dexamethasone 4 Mg/Ml Inj PO 1 mg Q24H BOBBY Administration Enoxaparin Sodium 30 mg 06/09/20 15:00 06/13/20 14:01 Enoxaparin 30 Mg /0.3 Ml Syringe SUBCUT 30 mg Q24H BOBBY Administration Famotidine 20 mg 06/09/20 18:00 06/14/20 13:29 Famotidine 20 Mg Tablet PO Not Given BID [facility] Fludrocortisone Ac etate 0.1 mg 06/11/20 09:00 06/14/20 13:29 Fludrocortisone 0.1 Mg Tablet PO Not Given DAILY [facility] Levothyroxine Sodi um 75 mcg 06/12/20 06:00 06/14/20 06:08 Levothyroxine 15 0 Mcg Tablet PO 75 mcg QAM BOBBY Administration Vitals/I&O/Wt Last Vital Signs Temp 97.4 F L 06/14/20 12:00 Pulse 86 06/14/20 12:00 Resp 18 06/14/20 12:00 BP 112/73 06/14/20 12:00 Pulse Ox 90 06/14/20 12:00 06/13/20 06/14/20 06/14/20 22:59 06:59 14:59 Output Total 975 / 1975 450 / 2425 250 / 250 Balance -975 / -1925 -450 / -2375 -250 / -250 Physical Exam Narrative: EXAM NARRATIVE: Patient is awake and alert. Does not follow instructions. No acute distress. Verbal. Eyes PERRL. Skin is warm and dry. Moist mucous membranes. Neck supple. No JVD Lungs clear. No respiratory distress Heart S1, S2, regular Abdomen soft, nontender, bowel sounds are present Extremities no edema cyanosis or calf tenderness bilaterally new Neuro evaluation. Aphasia is present. Bilateral weakness worse on the right side. Facial symmetry. Urinary Catheter Management^: Olson: Cath Placed During This Visit: yes Reason for Continuing Indwelling Catheter: Acute Urinary Retention or Obstruction Urinary Catheter Date of Insertion: 06/09/20 Urinary Catheter Time of Insertion: 09:00 Data : 06/14/20 06:15 06/14/20 09:55 Other Labs: Laboratory Results WBC 7.0 10^3/uL (4.0-10.0) 06/14/20 06:15 RBC 4.18 10^6/uL (4.1-5.3) 06/14/20 06:15 Hgb 12.5 g/dL (11.5-15.3) 06/14/20 06:15 Hct 38.9 % (37.0-47.0) 06/14/20 06:15 MCV 93.1 fL (81-99) 06/14/20 06:15 MCH 29.9 pg (28.0-34.0) 06/14/20 06:15 MCHC 32.1 g/dL (30.0-36.0) 06/14/20 06:15 RDW 13.7 % (12.1-15.1) 06/14/20 06:15 Plt Count 170 10^3/cmm (130-400) 06/14/20 06:15 MPV 10.6 fL (7.4-10.4) H 06/14/20 06:15 Neut % (Auto) 71.3 % 06/14/20 06:15 Lymph % (Auto) 20.1 % 06/14/20 06:15 [place] % (Auto) 6.6 % 06/14/20 06:15 Eos % (Auto) 0.9 % 06/14/20 06:15 Baso % (Auto) 0.1 % 06/14/20 06:15 Neut # (Auto) 4.97 10^3/uL (1.8-7.7) 06/14/20 06:15 Lymph # (Auto) 1.4 10^3/uL (0.8-4.8) 06/14/20 06:15 [place] # (Auto) 0.5 10^3/uL (0.2-0.9) 06/14/20 06:15 Eos # (Auto) 0.1 10^3/uL (0.0-0.8) 06/14/20 06:15 Baso # (Auto) 0.0 10^3/uL (0.0-0.1) 06/14/20 06:15 Nucleated RBC % (auto) 0.4 % 06/14/20 06:15 Nucleated RBCs # 0.0 /100WBC 06/14/20 06:15 Specimen Type Arterial 06/09/20 09:23 Sample Site Radial, left 06/09/20 09:23 ABG pH 7.48 (7.35-7.45) H 06/09/20 09:23 ABG pCO2 34.2 mmHg (35-45) L 06/09/20 09:23 ABG pO2 69.4 mmHg (80.0-100.0) L 06/09/20 09:23 ABG HCO3 25.3 mmol/L (22-26) 06/09/20 09:23 ABG O2 Saturation 94.4 06/09/20 09:23 ABG Base Excess 2.2 mmol/L (-2.0-2.0) H 06/09/20 09:23 Krishna Test Pos 06/09/20 09:23 A-a O2 Gradient 5.1 mmHg (5-10) 06/09/20 09:23 Hematocrit 45.6 % (37-47) 06/09/20 09:23 Hgb O2 Saturation 92.5 % (95-100) L 06/09/20 09:23 Carboxyhemoglobin 1.5 %THgb (0.4-20.1) 06/09/20 09:23 Methemoglobin 0.5 % (0.4-1.5) 06/09/20 09:23 Total Hemoglobin 14.9 g/dL (12-16) 06/09/20 09:23 Sodium 143.0 mmol/L (131-143) 06/09/20 09:23 Potassium 2.8 mmol/L (3.5-5.0) L 06/09/20 09:23 Glucose 107.0 mg/dL (70-115) 06/09/20 09:23 Ionized Calcium 1.2 mmol/L (1.1-1.4) 06/09/20 09:23 O2 Delivery Device Nc 06/09/20 09:23 O2 Liters/Min 2.0 % 06/09/20 09:23 Sleeping Car Service Attendant ID Cak 06/09/20 09:23 Sodium 144 mmol/L (136-145) 06/14/20 09:55 Potassium 3.3 mmol/L (3.5-5.1) L 06/14/20 09:55 Chloride 104 mmol/L (98-107) 06/14/20 09:55 Carbon Dioxide 32 mmol/L (22-29) H 06/14/20 09:55 Anion Gap 11.3 (5-19) 06/14/20 09:55 BUN 8 mg/dL (8-23) 06/14/20 09:55 Creatinine 0.8 mg/dL (0.5-0.9) 06/14/20 09:55 GFR Calculation Not Reportable 06/14/20 09:55 Glucose 97 mg/dL (65-115) 06/14/20 09:55 Calculated Osmolality 296 mOsm/kg (285-295) H 06/14/20 09:55 Lactic Acid 1.2 mmol/L (0.5-2.2) 06/09/20 09:30 Calcium 9.1 mg/dL (8.5-10.5) 06/14/20 09:55 Magnesium 2.3 mg/dL (1.7-2.3) 06/09/20 08:39 Total Bilirubin 0.6 mg/dL (0.15-1.2) 06/14/20 09:55 AST 44 U/L (0-32) H 06/14/20 09:55 ALT 32 U/L (0-33) 06/14/20 09:55 Alkaline Phosphatase 97 IU/L (35-105) 06/14/20 09:55 Ammonia 13 umol/L (11-51) 06/10/20 10:05 Creatine Kinase 1125 U/L (26-192) H* 06/10/20 04:28 Troponin T Baseline 24 ng/L (0-10) H 06/09/20 08:39 Troponin T 120 Minute 18.83 ng/L (0-10) H 06/09/20 10:49 Delta Troponin T -5.17 ABS# (0-10) L 06/09/20 10:49 Troponin T Hi Sens 6Hr 18.44 ng/L (0-10) H 06/09/20 12:36 Troponin T Hi Sens 6Hr Delta -5.56 ng/L (0-12) L 06/09/20 12:36 Total Protein 6.1 g/dL (6.6-8.7) L 06/14/20 09:55 Albumin 3.3 g/dL (3.5-5.2) L 06/14/20 09:55 Globulin 2.8 g/dL (1.3-4.6) 06/14/20 09:55 Free T4 1.07 ng/dL (0.82-1.77) 06/09/20 08:39 Urine Color Dark yellow (Yellow) 06/09/20 09:38 Urine Appearance Clear (CLEAR) 06/09/20 09:38 Urine pH 5 (5-7) 06/09/20 09:38 Ur Specific [place] 1.025 (1.005-1.030) 06/09/20 09:38 Urine Protein 1+ (Negative) H 06/09/20 09:38 Urine Glucose (UA) Norm (Normal) 06/09/20 09:38 Urine Ketones 2+ (Negative) H 06/09/20 09:38 Urine Blood 2+ (Negative) H 06/09/20 09:38 Urine Nitrate Negative (Negative) 06/09/20 09:38 Urine Bilirubin 1+ (Negative) H 06/09/20 09:38 Urine Urobilinogen 1 mg/dL (Negative) H 06/09/20 09:38 Ur Leukocyte Esterase Negative (Negative) 06/09/20 09:38 Urine RBC 0-4 /hpf (0-2) H 06/09/20 09:38 Urine WBC 5-10 /hpf (0-5) H 06/09/20 09:38 Ur Squamous Epith Cells Rare /hpf (0-5) 06/09/20 09:38 Amorphous Sediment 1+ /hpf 06/09/20 09:38 Urine Bacteria 1+ /hpf (NONE) H 06/09/20 09:38 Urine Mucus 2+ /hpf 06/09/20 09:38 Vancomycin Trough 30.3 ug/mL (10-15) H* 06/12/20 06:59 Serum Ketones Positive (Negative) H 06/09/20 08:[address] 06/09/20 09:00 IMPRESSION: 1. No evidence of intracranial hemorrhage or mass effect. 2. Bilateral subcutaneous paramedian thalamic infarct small amount of edema as seen on the prior MRI 3. No hydrocephalus. No new suspicious abnormality. 4. Left sphenoid sinusitis. Attempted Imtiaz Johnson DO at 06/09/2020 9:39 AM. Chest X-Ray 06/09/20 09:01 IMPRESSION: Stable abnormal chest as above with no definite acute abnormality. Liver Ultrasound 06/09/20 11:06 IMPRESSION: Limited examination. No bile duct dilatation was identified. The liver was fairly echogenic which is a nonspecific finding seen with fatty infiltration and other forms of hepatitis. Chest/Abdomen/Pelvis CT 06/11/20 07:49 IMPRESSION: 1. No evidence for acute process within the chest, abdomen or pelvis. 2. No pneumonia. 3. Diverticulosis without acute diverticulitis. 4. Prior cholecystectomy and appendectomy. Head MRI 06/14/20 10:44 IMPRESSION: 1. The examination is limited due to patient motion artifact. 2. 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 3. Generalized chronic atrophy with chronic white matter ischemic changes. Micro: Microbiology 06/11/20 08:30 Urine Culture - Final Urine Catheterized Escherichia coli A&P Additional A&P Information 1) Altered mental status: Etiology unclear. Although no overt seizure activity must still consider this as during 2 concerning episodes elevation of heart rate and decreased saturation occurred. CK is also noted to be elevated. 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 Cannot completely rule out recurrent CVA. Reviewed in detail concerns with . He does not want any significant invasive testing currently, and wants us to medically manage her condition. At this point do not plan on EEG. Keppra was initiated on admission. She has now woken up since admission and her ability to participate in conversation and therapy varies on a day-to-day basis. would like her to go home with home health and does not want her placed in skilled care again. Status: Acute Qualifiers: Altered mental status type: unspecified Qualified Code(s): R41.82 - Altered mental status, unspecified (2) Dehydration: Resolved. Discontinue IV hydration Status: Acute (3) CVA (cerebral vascular accident): DVT prophylaxis with Lovenox Continue Plavix and aspirin PT/ST/OT. She is now able to tolerate a dysphagia diet Status: Acute (4) Hypokalemia: Repeat supplementation Magnesium level has been checked, and normal. Status: Acute (5) Abnormal EKG: No further work-up planned secondary to other comorbidities. Discussed in detail with . Continue Plavix, aspirin . 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 This was given at stress dose until June 12 and converted to home dose of 1 mg Continue thyroid hormone. Change to p.o. Note the dose was increased to 75 mcg T4 level, free was checked and normal Fludrocortisone was added secondary to soft blood pressures, history of panhypopituitarism and she appears to be tolerating this well with no evidence of fluid overload Status: Acute (7) Rhabdomyolysis: Improved. CK level does not need rechecked Status: Acute (8) Bacteremia: Blood culture from admission has now grown 3/4 bottles staph epi. I believe this is likely contamination. She has no central lines last hospital stay. In talking with microbiology, initial blood culture was obtained peripherally and second blood culture drawn from IV. I believe both of these blood cultures were drawn from the same area. Therefore vancomycin is discontinued today Urine culture is growing gram-negative bruce currently. Will place patient on cefdinir. Unsure if this is truly a pathogen or asymptomatic bacteriuria. Either way it is safer to treat at this point as patient cannot relate symptoms. Awaiting identification and sensitivity. Preliminary is E. coli. CT chest abdomen pelvis did not demonstrate any acute process to explain bacteremia A repeat blood culture was ordered prior to starting vancomycin but canceled by laboratory. Further cultures have not shown any growth to date. Status: Acute Additional A&P Information Abnormal LFTs. Improved. Statin held on admission secondary to this. Anemia. No evidence of active bleeding. Hemoglobin stable Hypertension. Blood pressure is low normal. Medication stopped. History of diastolic dysfunction. No evidence of heart failure clinically. Allow natural . Discussed in detail with Lovenox for DVT prophylaxis 06/13 discontinued vancomycin. Awaiting urine culture results. Patient less interactive today, and needs further therapy prior to discharge home with home health and therapies. Discussed with family and they are trying to arrange care at Daughter- in- Law's house hopefully by Tuesday. 06/14 [place] Altered mental status. 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 Some worsening lethargy was noted by the nursing staff this morning. MRI did not show any new acute changes, evolving stroke. I suspect that some changes in mental status could be secondary to Keppra. I am decreasing the dose. We will continue monitoring. Continue aspirin and Plavix for now. DVT prophylaxis. Lovenox. UTI. Continue cefdinir. Hypotension. Improved with fludrocortisone. Disposition. Case management is working on discharge needs. Attestations Medical Necessity Statement*: Still requires close observation and adjustment of the treatments. Coding Level of Care Code Acute Field Case Manager for Vu Ochoa
[2020-06-14 15:04] VITALS: BP 126/72; PULSE 96; RESP 18; TEMP 37.1; O2SAT 93
[2020-06-14] MEDS: enoxaparin 30 mg/0.3 mL Syringe SUBCUT (18:20)
[2020-06-14] MEDS: cefTRIAXone 1,000 MG in sodium chloride 0.9% (plus) 50 ML 100 MG IV (18:20)
[2020-06-14] MEDS: famotidine 20 mg/2 mL INJ IVP (18:22)
[2020-06-14] MEDS: dexamethasone 4 mg/mL INJ 0.5 MG IVP ×2 (18:22→23:48)
[2020-06-14] MEDS: sodium chlor 0.9% + KCl 20 mEq 20 MEQ/1,000 ML BAG 50 MEQ IV (18:22)
[2020-06-14 19:53] VITALS: BP 120/74; PULSE 100; RESP 16; TEMP 36.6; O2SAT 90
[2020-06-15] VITALS (7 sets, daily range): BP systolic 92–130; BP diastolic 63–82; PULSE 79–100; RESP 16–18; TEMP 36.2–36.8; O2SAT 90–97
[2020-06-15] MEDS: dexamethasone 4 mg/mL INJ 0.5 MG IVP ×3 (05:09→17:20)
[2020-06-15] MEDS: famotidine 20 mg/2 mL INJ IVP ×2 (05:10→17:21)
[2020-06-15 05:35] LABS: Basophils % 0.3 %; Eosinophils % 0.3 %; Hematocrit 42.8 % (37.0-47.0); Hemoglobin 13.2 g/dL (11.5-15.3); Lymphocytes # 1.1 10^3/uL (0.8-4.8); Lymphocytes % 10.2 %; Mean Corpuscular HGB Conc 30.8 g/dL (30.0-36.0); Mean Corpuscular Hemoglobin 29.7 pg (28.0-34.0); Mean Corpuscular Volume 96.2 fL (81-99); Mean Platelet Volume 10.7 fL (7.4-10.4); Monocytes # 0.6 10^3/uL (0.2-0.9); Monocytes % 6.1 %; Neutrophils # 8.53 10^3/uL (1.8-7.7); Nucleated Red Blood Cells % 0 %; Platelet Count 202 10^3/cmm (130-400); Red Blood Count 4.45 10^6/uL (4.1-5.3); Red Cell Distribution Width 14.4 % (12.1-15.1); White Blood Count 10.4 10^3/uL (4.0-10.0)
[2020-06-15 06:07] LABS: Albumin Level 3.2 g/dL (3.5-5.2); Blood Urea Nitrogen 9 mg/dL (8-23); Calcium 8.7 mg/dL (8.5-10.5); Carbon Dioxide 25 mmol/L (22-29); Chloride 102 mmol/L (98-107); Glucose 114 mg/dL (65-115); Phosphorus 3.5 mg/dL (2.5-4.5); Sodium 141 mmol/L (136-145)
[2020-06-15 06:56] LABS: Anion Gap 17.6 (5-19); Potassium 3.6 mmol/L (3.5-5.1)
[2020-06-15] MEDS: aspirin 300 mg Supp PR (10:20)
--- NOTE | 2020-06-15 11:03 | PC.OT ---
Patient re-assessed by therapist and was found to no longer be appropriate for therapy as she cannot follow directions to participate and is not responding showing response to stimuli. If patient's status changes and therapy becomes appropriate again, requesting orders be made at that time.
[2020-06-15] MEDS: enoxaparin 30 mg/0.3 mL Syringe SUBCUT (14:04)
[2020-06-15] MEDS: sodium chlor 0.9% + KCl 20 mEq 20 MEQ/1,000 ML BAG 50 MEQ IV (14:04)
--- NOTE | 2020-06-15 14:41 | PC.SOCIAL ---
IMM Updated Updated pt pt's spouse on Pg 2 IMM. No questions voiced. Signed, dated, & timed copy in chart.
--- NOTE | 2020-06-15 15:07 | PM.PN ---
Subjective Subjective: Interval history: No significant changes since yesterday. No significant events. No acute distress. Medications: Reviewed: Yes Medication Review Details: Generic Name Dose Route Start Last Admin Trade Name Freq PRN Reason Stop Dose Admin Aspirin 300 mg 06/15/20 09:00 06/15/20 10:20 Aspirin 300 Mg S upp ID 300 mg DAILY BOBBY Administration Clopidogrel Bisulf ate 75 mg 06/11/20 09:00 06/15/20 09:17 Clopidogrel 75 M g Tablet PO Not Given DAILY BOBBY Dexamethasone 0.5 mg 06/14/20 17:30 06/15/20 10:29 Dexamethasone 4 Mg/Ml Inj IVP 0.5 mg Q6H BOBBY Administration Enoxaparin Sodium 30 mg 06/09/20 15:00 06/15/20 14:04 Enoxaparin 30 Mg /0.3 Ml Syringe SUBCUT 30 mg Q24H BOBBY Administration Famotidine 20 mg 06/14/20 17:30 06/15/20 05:10 Famotidine 20 Mg /2 Ml Inj IVP 20 mg Q12H BOBBY Administration Fludrocortisone Ac etate 0.1 mg 06/11/20 09:00 06/15/20 09:17 Fludrocortisone 0.1 Mg Tablet PO Not Given DAILY BOBBY Ceftriaxone Sodium 1,000 mg/ 50 mls @ 100 mls/ hr 06/14/20 17:30 06/14/20 18:20 Sodium Chloride IV 100 mls/hr Q24H BOBBY Administration Protocol Potassium Chloride /Sodium Chloride 20 meq in 1,000 m ls @ 50 mls/hr 06/14/20 17:30 06/15/20 14:04 Sodium Chlor 0.9 % + Kcl 20 Meq IV 50 mls/hr .Q20H BOBBY Administration Levothyroxine Sodi um 75 mcg 06/12/20 06:00 06/15/20 05:08 Levothyroxine 15 0 Mcg Tablet PO Not Given QAM BOBBY Vitals/I&O/Wt Last Vital Signs Temp 97.2 F L 06/15/20 12:00 Pulse 83 06/15/20 12:00 Resp 18 06/15/20 12:00 BP 104/67 06/15/20 12:00 Pulse Ox 91 06/15/20 12:00 06/15/20 06/15/20 06/15/20 06:59 14:59 22:59 Intake Total 985 / 985 Balance 985 / 985 Physical Exam Narrative: EXAM NARRATIVE: Patient is awake and alert. Does not follow instructions. No acute distress. Verbal. Eyes PERRL. Skin is warm and dry. Moist mucous membranes. Neck supple. No JVD Lungs clear. No respiratory distress Heart S1, S2, regular Abdomen soft, nontender, bowel sounds are present Extremities no edema cyanosis or calf tenderness bilaterally new Neuro evaluation. Aphasia is present. Bilateral weakness worse on the right side. Facial symmetry. Urinary Catheter Management^: Olson: Cath Placed During This Visit: yes Reason for Continuing Indwelling Catheter: Acute Urinary Retention or Obstruction Urinary Catheter Date of Insertion: 06/09/20 Urinary Catheter Time of Insertion: 09:00 Data : 06/15/20 05:15 06/15/20 05:15 Micro: Microbiology 06/09/20 09:30 Blood Culture - Final Blood Staphylococcus epidermidis 06/09/20 14:01 Blood Culture - Final Blood Staphylococcus epidermidis 06/14/20 18:15 Blood Culture - Preliminary Blood SPECIMEN COLLECTED 06/14/20 18:15 Blood Culture - Preliminary Blood SPECIMEN COLLECTED A&P Assessment and plan (1) Altered mental status: Etiology unclear. Although no overt seizure activity must still consider this as during 2 concerning episodes elevation of heart rate and decreased saturation occurred. CK is also noted to be elevated. 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 Cannot completely rule out recurrent CVA. Reviewed in detail concerns with . He does not want any significant invasive testing currently, and wants us to medically manage her condition. At this point do not plan on EEG. Keppra was initiated on admission. She has now woken up since admission and her ability to participate in conversation and therapy varies on a day-to-day basis. would like her to go home with home health and does not want her placed in skilled care again. Status: Acute Qualifiers: Altered mental status type: unspecified Qualified Code(s): R41.82 - Altered mental status, unspecified (2) Dehydration: Resolved. Discontinue IV hydration Status: Acute (3) CVA (cerebral vascular accident): DVT prophylaxis with Lovenox Continue Plavix and aspirin PT/ST/OT. She is now able to tolerate a dysphagia diet Status: Acute (4) Hypokalemia: Repeat supplementation Magnesium level has been checked, and normal. Status: Acute (5) Abnormal EKG: No further work-up planned secondary to other comorbidities. Discussed in detail with . Continue Plavix, aspirin . 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 This was given at stress dose until June 12 and converted to home dose of 1 mg Continue thyroid hormone. Change to p.o. Note the dose was increased to 75 mcg T4 level, free was checked and normal Fludrocortisone was added secondary to soft blood pressures, history of panhypopituitarism and she appears to be tolerating this well with no evidence of fluid overload Status: Acute (7) Rhabdomyolysis: Improved. CK level does not need rechecked Status: Acute (8) Bacteremia: Blood culture from admission has now grown 3/4 bottles staph epi. I believe this is likely contamination. She has no central lines last hospital stay. In talking with microbiology, initial blood culture was obtained peripherally and second blood culture drawn from IV. I believe both of these blood cultures were drawn from the same area. Therefore vancomycin is discontinued today Urine culture is growing gram-negative bruce currently. Will place patient on cefdinir. Unsure if this is truly a pathogen or asymptomatic bacteriuria. Either way it is safer to treat at this point as patient cannot relate symptoms. Awaiting identification and sensitivity. Preliminary is E. coli. CT chest abdomen pelvis did not demonstrate any acute process to explain bacteremia A repeat blood culture was ordered prior to starting vancomycin but canceled by laboratory. Further cultures have not shown any growth to date. Status: Acute Additional A&P Information 1) Altered mental status: Etiology unclear. Although no overt seizure activity must still consider this as during 2 concerning episodes elevation of heart rate and decreased saturation occurred. CK is also noted to be elevated. 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 Cannot completely rule out recurrent CVA. Reviewed in detail concerns with . He does not want any significant invasive testing currently, and wants us to medically manage her condition. At this point do not plan on EEG. Tan was initiated on admission. She has now woken up since admission and her ability to participate in conversation and therapy varies on a day-to-day basis. would like her to go home with home health and does not want her placed in skilled care again. Status: Acute Qualifiers: Altered mental status type: unspecified Qualified Code(s): R41.82 - Altered mental status, unspecified (2) Dehydration: Resolved. Discontinue IV hydration Status: Acute (3) CVA (cerebral vascular accident): DVT prophylaxis with Lovenox Continue Plavix and aspirin PT/ST/OT. She is now able to tolerate a dysphagia diet Status: Acute (4) Hypokalemia: Repeat supplementation Magnesium level has been checked, and normal. Status: Acute (5) Abnormal EKG: No further work-up planned secondary to other comorbidities. Discussed in detail with . Continue Plavix, aspirin . 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 This was given at stress dose until June 12 and converted to home dose of 1 mg Continue thyroid hormone. Change to p.o. Note the dose was increased to 75 mcg T4 level, free was checked and normal Fludrocortisone was added secondary to soft blood pressures, history of panhypopituitarism and she appears to be tolerating this well with no evidence of fluid overload Status: Acute (7) Rhabdomyolysis: Improved. CK level does not need rechecked Status: Acute (8) Bacteremia: Blood culture from admission has now grown 3/4 bottles staph epi. I believe this is likely contamination. She has no central lines last hospital stay. In talking with microbiology, initial blood culture was obtained peripherally and second blood culture drawn from IV. I believe both of these blood cultures were drawn from the same area. Therefore vancomycin is discontinued today Urine culture is growing gram-negative bruce currently. Will place patient on cefdinir. Unsure if this is truly a pathogen or asymptomatic bacteriuria. Either way it is safer to treat at this point as patient cannot relate symptoms. Awaiting identification and sensitivity. Preliminary is E. coli. CT chest abdomen pelvis did not demonstrate any acute process to explain bacteremia A repeat blood culture was ordered prior to starting vancomycin but canceled by laboratory. Further cultures have not shown any growth to date. Status: Acute Additional A&P Information Abnormal LFTs. Improved. Statin held on admission secondary to this. Anemia. No evidence of active bleeding. Hemoglobin stable Hypertension. Blood pressure is low normal. Medication stopped. History of diastolic dysfunction. No evidence of heart failure clinically. Allow natural . Discussed in detail with [facility] for DVT prophylaxis 06/13 discontinued vancomycin. Awaiting urine culture results. Patient less interactive today, and needs further therapy prior to discharge home with home health and therapies. Discussed with family and they are trying to arrange care at Daughter- in- Law's house hopefully by Tuesday. 06/14 [place] Altered mental status. 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 Some worsening lethargy was noted by the nursing staff this morning. MRI did not show any new acute changes, evolving stroke. I suspect that some changes in mental status could be secondary to Keppra. I am decreasing the dose. We will continue monitoring. Continue aspirin and Plavix for now. Aphasia. The patient failed speech eval. N.p.o. currently. DVT prophylaxis. Lovenox. UTI. Continue Rocephin. Hypotension. Improved with fludrocortisone. Disposition. Case management is working on discharge needs. Will discuss with the family when they are here about nutrition and hydration, their expectations from treatment and advanced care planning. Attestations Medical Necessity Statement*: The plan of care requires inpatient hospitalization for now. 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
--- NOTE | 2020-06-15 15:14 | PC.SLP ---
[employer] attempted to work with the pt, however, adequate level of alertness could not be obtained. Pt's spouse present.
[2020-06-15] MEDS: cefTRIAXone 1,000 MG in sodium chloride 0.9% (plus) 50 ML 100 MG IV (17:16)
[2020-06-16] MEDS: dexamethasone 4 mg/mL INJ 0.5 MG IVP ×4 (01:07→16:52)
[2020-06-16 04:02] VITALS: BP 111/63; PULSE 83; RESP 18; TEMP 36.6; O2SAT 91
[2020-06-16 05:36] LABS: Albumin Level 2.9 g/dL (3.5-5.2); Anion Gap 14.8 (5-19); Blood Urea Nitrogen 12 mg/dL (8-23); Calcium 8.8 mg/dL (8.5-10.5); Carbon Dioxide 25 mmol/L (22-29); Chloride 110 mmol/L (98-107); Glucose 121 mg/dL (65-115); Magnesium 2.2 mg/dL (1.7-2.3); Phosphorus 2.5 mg/dL (2.5-4.5); Potassium 3.8 mmol/L (3.5-5.1); Sodium 146 mmol/L (136-145)
[2020-06-16] MEDS: famotidine 20 mg/2 mL INJ IVP ×2 (06:28→16:52)
[2020-06-16 07:50] VITALS: BP 131/69; PULSE 80; RESP 17; TEMP 36.9; O2SAT 96
[2020-06-16] MEDS: aspirin 300 mg Supp PR (10:50)
[2020-06-16] MEDS: sodium chlor 0.9% + KCl 20 mEq 20 MEQ/1,000 ML BAG 50 MEQ IV (11:18)
[2020-06-16 11:42] VITALS: BP 133/75; PULSE 89; RESP 16; TEMP 36.3; O2SAT 93
--- NOTE | 2020-06-16 14:15 | P.PN_ITS ---
Subjective Subjective: Interval history: No significant changes or events. No acute distress. No signs of pain. Medications: Reviewed: Yes Medication Review Details: Generic Name Dose Route Start Last Admin Trade Name Freq PRN Reason Stop Dose Admin Aspirin 300 mg 06/15/20 09:00 06/16/20 10:50 Aspirin 300 Mg S upp [place] 300 mg DAILY BOBBY Administration Clopidogrel Bisulf ate 75 mg 06/11/20 09:00 06/16/20 10:50 Clopidogrel 75 M g Tablet PO Not Given DAILY BOBBY Dexamethasone 0.5 mg 06/14/20 17:30 06/16/20 12:54 Dexamethasone 4 Mg/Ml Inj IVP 0.5 mg Q6H BOBBY Administration Enoxaparin Sodium 30 mg 06/09/20 15:00 06/15/20 14:04 Enoxaparin 30 Mg /0.3 Ml Syringe SUBCUT 30 mg Q24H BOBBY Administration Famotidine 20 mg 06/14/20 17:30 06/16/20 06:28 Famotidine 20 Mg /2 Ml Inj IVP 20 mg Q12H BOBBY Administration Fludrocortisone Ac etate 0.1 mg 06/11/20 09:00 06/16/20 10:50 Fludrocortisone 0.1 Mg Tablet PO Not Given DAILY BOBBY Ceftriaxone Sodium 1,000 mg/ 50 mls @ 100 mls/ hr 06/14/20 17:30 06/15/20 17:16 Sodium Chloride IV 100 mls/hr Q24H BOBBY Administration Protocol Potassium Chloride /Sodium Chloride 20 meq in 1,000 m ls @ 50 mls/hr 06/14/20 17:30 06/16/20 11:18 Sodium Chlor 0.9 % + Kcl 20 Meq IV 50 mls/hr .Q20H BOBBY Administration Levetiracetam 250 mg/ Sodium 52.5 mls @ 100 ml s/hr 06/16/20 10:00 06/16/20 11:19 Chloride IV 100 mls/hr Q12H BOBBY Administration Levothyroxine Sodi um 75 mcg 06/12/20 06:00 06/16/20 06:36 Levothyroxine 15 0 Mcg Tablet PO Not Given QAM BOBBY Vitals/I&O/Wt Last Vital Signs Temp 97.3 F L 06/16/20 11:42 Pulse 89 06/16/20 11:42 Resp 16 06/16/20 11:42 BP 133/75 06/16/20 11:42 Pulse Ox 93 06/16/20 11:42 06/15/20 06/16/20 06/16/20 22:59 06:59 14:59 Intake Total 1240 / 1240 Output Total 800 / 800 300 / 1100 Balance -800 / 185 -300 / -115 1240 / 1240 Physical Exam Narrative: EXAM NARRATIVE: Patient is awake and alert. Does not follow instructions. No acute distress. Verbal. Eyes PERRL. Skin is warm and dry. Moist mucous membranes. Neck supple. No JVD Lungs clear. No respiratory distress Heart S1, S2, regular Abdomen soft, nontender, bowel sounds are present Extremities no edema cyanosis or calf tenderness bilaterally new Neuro evaluation. Aphasia is present. Bilateral weakness worse on the right side. Facial symmetry. Urinary Catheter Management^: Olson: Cath Placed During This Visit: yes Reason for Continuing Indwelling Catheter: Accurate Measurement of Urinary Outp ut in Critically Ill Patients Urinary Catheter Date of Insertion: 06/09/20 Urinary Catheter Time of Insertion: 09:00 Data : 06/15/20 05:15 06/16/20 04:49 Micro: Microbiology 06/14/20 18:15 Blood Culture - Preliminary Blood NEGATIVE TO DATE 06/14/20 18:15 Blood Culture - Preliminary Blood NEGATIVE TO DATE 06/09/20 09:30 Blood Culture - Final Blood Staphylococcus epidermidis 06/09/20 14:01 Blood Culture - Final Blood Staphylococcus epidermidis A&P Assessment and plan (1) Altered mental status: Etiology unclear. Although no overt seizure activity must still consider this as during 2 concerning episodes elevation of heart rate and decreased saturation occurred. CK is also noted to be elevated. 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 Cannot completely rule out recurrent CVA. Reviewed in detail concerns with . He does not want any significant invasive testing currently, and wants us to medically manage her condition. At this point do not plan on EEG. Keppra was initiated on admission. She has now woken up since admission and her ability to participate in conversation and therapy varies on a day-to-day basis. would like her to go home with home health and does not want her placed in skilled care again. Status: Acute Qualifiers: Altered mental status type: unspecified Qualified Code(s): R41.82 - Altered mental status, unspecified (2) Dehydration: Resolved. Discontinue IV hydration Status: Acute (3) CVA (cerebral vascular accident): DVT prophylaxis with Lovenox Continue Plavix and aspirin PT/ST/OT. She is now able to tolerate a dysphagia diet Status: Acute (4) Hypokalemia: Repeat supplementation Magnesium level has been checked, and normal. Status: Acute (5) Abnormal EKG: No further work-up planned secondary to other comorbidities. Discussed in detail with . Continue Plavix, aspirin . 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 This was given at stress dose until June 12 and converted to home dose of 1 mg Continue thyroid hormone. Change to p.o. Note the dose was increased to 75 mcg T4 level, free was checked and normal Fludrocortisone was added secondary to soft blood pressures, history of panhypopituitarism and she appears to be tolerating this well with no evidence of fluid overload Status: Acute (7) Rhabdomyolysis: Improved. CK level does not need rechecked Status: Acute (8) Bacteremia: Blood culture from admission has now grown 3/4 bottles staph epi. I believe this is likely contamination. She has no central lines last hospital stay. In talking with microbiology, initial blood culture was obtained peripherally and second blood culture drawn from IV. I believe both of these blood cultures were drawn from the same area. Therefore vancomycin is discontinued today Urine culture is growing gram-negative bruce currently. Will place patient on cefdinir. Unsure if this is truly a pathogen or asymptomatic bacteriuria. Either way it is safer to treat at this point as patient cannot relate symptoms. Awaiting identification and sensitivity. Preliminary is E. coli. CT chest abdomen pelvis did not demonstrate any acute process to explain bacteremia A repeat blood culture was ordered prior to starting vancomycin but canceled by laboratory. Further cultures have not shown any growth to date. Status: Acute Additional A&P Information 1) Altered mental status: Etiology unclear. Although no overt seizure activity must still consider this as during 2 concerning episodes elevation of heart rate and decreased saturation occurred. CK is also noted to be elevated. 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 Cannot completely rule out recurrent CVA. Reviewed in detail concerns with . He does not want any significant invasive testing currently, and wants us to medically manage her condition. At this point do not plan on EEG. Keppra was initiated on admission. She has now woken up since admission and her ability to participate in conversation and therapy varies on a day-to-day basis. would like her to go home with home health and does not want her placed in skilled care again. Status: Acute Qualifiers: Altered mental status type: unspecified Qualified Code(s): R41.82 - Altered mental status, unspecified (2) Dehydration: Resolved. Discontinue IV hydration Status: Acute (3) CVA (cerebral vascular accident): DVT prophylaxis with Lovenox Continue Plavix and aspirin PT/ST/OT. She is now able to tolerate a dysphagia diet Status: Acute (4) Hypokalemia: Repeat supplementation Magnesium level has been checked, and normal. Status: Acute (5) Abnormal EKG: No further work-up planned secondary to other comorbidities. Discussed in detail with . Continue Plavix, aspirin . 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 This was given at stress dose until June 12 and converted to home dose of 1 mg Continue thyroid hormone. Change to p.o. Note the dose was increased to 75 mcg T4 level, free was checked and normal Fludrocortisone was added secondary to soft blood pressures, history of panhypopituitarism and she appears to be tolerating this well with no evidence of fluid overload Status: Acute (7) Rhabdomyolysis: Improved. CK level does not need rechecked Status: Acute (8) Bacteremia: Blood culture from admission has now grown 3/4 bottles staph epi. I believe this is likely contamination. She has no central lines last hospital stay. In talking with microbiology, initial blood culture was obtained peripherally and second blood culture drawn from IV. I believe both of these blood cultures were drawn from the same area. Therefore vancomycin is discontinued today Urine culture is growing gram-negative bruce currently. Will place patient on cefdinir. Unsure if this is truly a pathogen or asymptomatic bacteriuria. Either way it is safer to treat at this point as patient cannot relate symptoms. Awaiting identification and sensitivity. Preliminary is E. coli. CT chest abdomen pelvis did not demonstrate any acute process to explain bacteremia A repeat blood culture was ordered prior to starting vancomycin but canceled by laboratory. Further cultures have not shown any growth to date. Status: Acute Additional A&P Information Abnormal LFTs. Improved. Statin held on admission secondary to this. Anemia. No evidence of active bleeding. Hemoglobin stable Hypertension. Blood pressure is low normal. Medication stopped. History of diastolic dysfunction. No evidence of heart failure clinically. Allow natural . Discussed in detail with [facility] for DVT prophylaxis 06/13 discontinued vancomycin. Awaiting urine culture results. Patient less interactive today, and needs further therapy prior to discharge home with home health and therapies. Discussed with family and they are trying to arrange care at Daughter- in- Law's house hopefully by Tuesday. [place] Altered mental status. 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 Some worsening lethargy was noted by the nursing staff this morning. MRI did not show any new acute changes, evolving stroke. I suspect that some changes in mental status could be secondary to Keppra. I am decreasing the dose. We will continue monitoring. Continue aspirin and Plavix for now. Dysphagia. The patient failed speech eval. N.p.o. currently. The long discussion with the patient's yesterday. We discussed her current condition and findings and problems with nutrition. He agreed that the patient will probably require a PEG tube for enteral nutrition. We will ask on-call surgeon to see the patient for PEG tube placement. DVT prophylaxis. Lovenox. UTI. Continue Rocephin. Hypotension. Improved with fludrocortisone. Disposition. Patient's does not want her to go to half-way facility. He wants her to come back home. Case management will help with home health care. The plan of care was discussed with the yesterday on the phone, and multidisciplinary team today during the rounds. 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
--- NOTE | 2020-06-16 15:29 | PM.CONSULT ---
Providers/Reason For Consult Consulting Physican/Specialty*: General Surgery Moses Fine MD Reason for Consult*: Requesting PEG tube placement. Attending Physician: Seb Junior Primary Care Provider: Selma Marks APN History of Present Illness History of Present Illness Marjorie Gottlieb is a 69 year old female who apparently had a CVA earlier this month. Her tells me that she initially did not have much in the way of symptoms other than some mild mental status changes. She was readmitted from [facility] worse than she was before. He says 2 days ago she had a further decrease in mental status and stopped eating. He says he will still give her a little bit of water with a straw at times even though the nurses do not want me to (he uses a straw with his finger over the end to place it into her mouth); otherwise she does eat anything. Dr. Andres asked if I would discuss a feeding tube/PEG tube with the patient/. Review of Systems General: Reports: ROS unobtainable due to medical condition (Patient will not answer questions) Meds/Allergies Home Medications and Allergies Home Medications Medication Instructions Recorded Confirmed Last Taken Type acetaminophen 500 mg tablet 500 mg PO BID PRN tab 02/06/20 06/09/20 Unknown History cranberry extract 500 mg capsule 500 mg PO DAILY cap 02/06/20 06/09/20 Unknown History metoprolol succinate 50 mg 100 mg PO DAILY tab 02/06/20 06/09/20 Unknown History tablet,extended release 24 hr loperamide 2 mg capsule 2 mg PO Q4H PRN 03/12/20 06/09/20 Unknown History mecobalamin (vitamin B12) 5,000 5,000 mcg PO DAILY 03/12/20 06/09/20 Unknown History mcg disintegrating tablet potassium 99 mg tablet 99 mg PO DAILY PRN tab 03/12/20 06/09/20 Unknown History nitroglycerin 0.4 mg sublingual 0.4 mg SUBLINGUAL Q5M PRN #14 tab 03/17/20 06/09/20 Unknown Rx tablet aspirin 81 mg PO DAILY 30 Days #30 tab 06/05/20 06/09/20 Unknown Rx atorvastatin 80 mg PO Q24H 30 Days #30 tab 06/05/20 06/09/20 Unknown Rx clopidogrel 75 mg PO DAILY 30 Days #30 tab 06/05/20 06/09/20 Unknown Rx dexamethasone 1 mg PO DAILY #0 tab 06/05/20 06/09/20 Unknown Rx famotidine 20 mg PO BID 30 Days #60 tab 06/05/20 06/09/20 Unknown Rx levothyroxine [Synthroid] 50 mcg PO DAILY #0 tab 06/05/20 06/09/20 Unknown Rx Allergies Allergy/AdvReac Type Severity Reaction Status Date / Time Iodinated Contrast Media Allergy Severe ALGY-Hives Verified 03/12/20 09:46 Sulfa (Sulfonamide Allergy Severe ALGY-Swell Verified 03/12/20 09:46 Antibiotics) Lip/Tongue/Throat cephalexin Allergy Unknown Unknown Verified 03/12/20 09:46 cortisone Allergy Unknown Unknown Verified 03/12/20 09:46 levofloxacin [From Levaquin] Allergy Unknown Unknown Verified 03/12/20 09:46 nitrofurantoin Allergy Unknown Unknown Verified 03/12/20 09:46 [From Macrobid] ciprofloxacin [From Cipro] Allergy Unknown Verified 05/30/20 13:41 esomeprazole [From Nexium] Allergy ALGY-Hives Verified 03/12/20 09:46 Current Medications Current Medications Generic Name Dose Route Start Last Admin Trade Name Freq PRN Reason Stop Dose Admin Aspirin 300 mg 06/15/20 09:00 06/16/20 10:50 Aspirin 300 Mg Supp IN 300 mg DAILY BOBBY Administration Clopidogrel Bisulfate 75 mg 06/11/20 09:00 06/16/20 10:50 Clopidogrel 75 Mg Tablet PO Not Given DAILY BOBBY Dexamethasone 0.5 mg 06/14/20 17:30 06/16/20 12:54 Dexamethasone 4 Mg/Ml Inj IVP 0.5 mg Q6H BOBBY Administration Famotidine 20 mg 06/14/20 17:30 06/16/20 06:28 Famotidine 20 Mg/2 Ml Inj IVP 20 mg Q12H BOBBY Administration Fludrocortisone Acetate 0.1 mg 06/11/20 09:00 06/16/20 10:50 Fludrocortisone 0.1 Mg Tablet PO Not Given DAILY BOBBY Ceftriaxone Sodium 1,000 mg/ 50 mls @ 100 mls/hr 06/14/20 17:30 06/15/20 17:16 Sodium Chloride IV 100 mls/hr Q24H BOBBY Administration Protocol Potassium Chloride/Sodium Chloride 20 meq in 1,000 mls @ 50 mls/hr 06/14/20 17:30 06/16/20 11:18 Sodium Chlor 0.9% + Kcl 20 Meq IV 50 mls/hr .Q20H BOBBY Administration Levetiracetam 250 mg/ Sodium 52.5 mls @ 100 mls/hr 06/16/20 10:00 06/16/20 11:19 Chloride IV 100 mls/hr Q12H BOBBY Administration Levothyroxine Sodium 75 mcg 06/12/20 06:00 06/16/20 06:36 Levothyroxine 150 Mcg Tablet PO Not Given QAM BOBBY PFSH Acute PFSH: Medical History (Updated 06/16/20 @ 15:36 by Moses Fine MD) Breast cancer 1996 right --breast conservation surgery followed by chemotherapy/radiation Diastolic dysfunction H/O: pituitary tumor History of stroke 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 The says we thought it might have been a tubal but we do not know for sure History of surgical removal of pituitary gland S/P lumpectomy of breast / axillary lymphadenectomy -- Right Family History Father Stroke Other CAD (coronary artery disease) Hypertension Social History Smoking and tobacco status: never smoked Alcohol intake: never Household members: spouse Marital status: Vitals/I&O/Wt Last Vital Signs Temp 97.3 F L 06/16/20 11:42 Pulse 89 06/16/20 11:42 Resp 16 06/16/20 11:42 BP 133/75 06/16/20 11:42 Pulse Ox 93 06/16/20 11:42 06/16/20 06/16/20 06/16/20 06:59 14:59 22:59 Intake Total 1240 / 1240 Output Total 300 / 1100 Balance -300 / -115 1240 / 1240 Physical Exam Narrative: EXAM NARRATIVE: The patient was initially resting comfortably when I came in the room. Her was present. Eventually, she opened her eyes but she stares straight forward and will not open questions or follow me as I move around. She does move her left hand up to her face on occasion but is more hesitant to move her right arm although she will squeeze my fingers if I place them near her hand. The pupils seem equal. No carotid bruits are heard. The lungs are clear anteriorly. The heart is regular. The abdomen is mildly to moderately obese but is very soft and seemingly nontender. No obvious masses are palpated. She does not have any surgical scars which would preclude an attempted PEG tube placement. The extremities reveal no edema. Urinary Catheter Management^: Olson: Cath Placed During This Visit: yes Reason for Continuing Indwelling Catheter: Accurate Measurement of Urinary Output in Critically Ill Patients Urinary Catheter Date of Insertion: 06/09/20 Urinary Catheter Time of Insertion: 09:00 Data Micro: Micro: Microbiology 06/14/20 18:15 Blood Culture - Pr eliminary Blood NEGATIVE TO ELSIE E 06/14/20 18:15 Blood Culture - Pr eliminary Blood NEGATIVE TO ELSIE E 06/09/20 09:30 Blood Culture - Fi nal Blood Staphylococcus epidermidis 06/09/20 14:01 Blood Culture - Fi nal Blood Staphylococcus epidermidis A&P Assessment and plan (1) Dysphagia: I have discussed the situation with the patient's in some detail. We went over some details of dysphagia, malnutrition, PEG tube insertions with associated risks of bleeding, infection, dislodgment of feeding tube, etc. He knows that this may be necessary, but is still hoping that she will come out of it soon. For that reason he was hoping to hold off on a PEG tube insertion, at least for now. I told him I would continue to come back in see how the patient is doing daily. He intends to make a decision in the next few days. Status: Acute (2) Altered mental status: Status: Acute Qualifiers: Altered mental status type: unspecified Qualified Code(s): R41.82 - Altered mental status, unspecified Consult Attestations Medical Necessity Statement: See admitting service's notation. Coding Level of Care Code Acute Gas Scrubber Operator for [facility] Diagnoses Dysphagia R13.10 Altered mental status R41.82 Altered mental status type: unspecified
[2020-06-16 16:00] VITALS: BP 132/73; PULSE 61; RESP 18; TEMP 36.5; O2SAT 100
[2020-06-16] MEDS: enoxaparin 30 mg/0.3 mL Syringe SUBCUT (16:36)
[2020-06-16] MEDS: cefTRIAXone 1,000 MG in sodium chloride 0.9% (plus) 50 ML 100 MG IV (16:58)
[2020-06-16 19:56] VITALS: BP 131/74; PULSE 84; RESP 17; TEMP 35.9; O2SAT 91
[2020-06-17] VITALS: BP 123/65; PULSE 67; RESP 17; TEMP 36.4; O2SAT 94
[2020-06-17] MEDS: dexamethasone 4 mg/mL INJ 0.5 MG IVP ×4 (02:41→21:16)
[2020-06-17 04:00] VITALS: BP 122/63; PULSE 87; RESP 17; TEMP 36.3; O2SAT 92
[2020-06-17] MEDS: sodium chlor 0.9% + KCl 20 mEq 20 MEQ/1,000 ML BAG 50 MEQ IV (06:16)
[2020-06-17] MEDS: famotidine 20 mg/2 mL INJ IVP ×2 (06:17→17:09)
[2020-06-17 07:50] VITALS: BP 144/74; PULSE 85; RESP 17; TEMP 36.2; O2SAT 96
[2020-06-17] MEDS: aspirin 300 mg Supp PR (08:25)
[2020-06-17 11:48] VITALS: BP 144/76; PULSE 82; RESP 18; TEMP 36.8; O2SAT 95
--- NOTE | 2020-06-17 13:11 | PM.PN ---
Subjective Subjective: Interval history: The patient seems much more alert today and tells me she is hungry. She remains n.p.o. Vitals/I&O/Wt Last Vital Signs Temp 98.2 F 06/17/20 11:48 Pulse 82 06/17/20 11:48 Resp 18 06/17/20 11:48 BP 144/76 06/17/20 11:48 Pulse Ox 95 06/17/20 11:48 06/16/20 06/17/20 06/17/20 22:59 06:59 14:59 Intake Total 0 / 2240.833 948.333 / 2240.833 102.5 / 102.5 Output Total 700 / 1250 550 / 1250 Balance -700 / 990.833 398.333 / 990.833 102.5 / 102.5 Physical Exam Narrative: EXAM NARRATIVE: Her abdominal exam is benign. Urinary Catheter Management^: Olson: Cath Placed During This Visit: yes Reason for Continuing Indwelling Catheter: Acute Urinary Retention or Obstruction Urinary Catheter Date of Insertion: 06/09/20 Urinary Catheter Time of Insertion: 09:00 Data : 06/15/20 05:15 06/16/20 04:49 Micro: Microbiology 06/12/20 08:15 Blood Culture - Final Blood NO GROWTH AFTER 5 DAYS 06/12/20 06:59 Blood Culture - Final Blood NO GROWTH AFTER 5 DAYS A&P Assessment and plan (1) Dysphagia: I am not sure what the patient's normal level of mental function is, but she seems much more alert today than she was yesterday. She tells me she would like to drink some fluids at least. I am going to allow her some clear liquids and we will see how she tolerates that. Status: Acute (2) Altered mental status: Status: Acute Qualifiers: Altered mental status type: unspecified Qualified Code(s): R41.82 - Altered mental status, unspecified Attestations Medical Necessity Statement*: See admitting service's notation. Coding Level of Care Code Acute Climatology Teacher for [facility] Diagnoses Dysphagia R13.10 Altered mental status R41.82 Altered mental status type: unspecified
[2020-06-17] MEDS: enoxaparin 30 mg/0.3 mL Syringe SUBCUT (15:16)
--- NOTE | 2020-06-17 15:39 | PM.PN ---
Subjective Subjective: Interval history: Doing better today. More awake. Eating better. No signs of aspiration. No shortness of breath or cough. No fevers or chills. No seizures. No nausea or vomiting. Medications: Reviewed: Yes Medication Review Details: Generic Name Dose Route Start Last Admin Trade Name Freq PRN Reason Stop Dose Admin Aspirin 300 mg 06/15/20 09:00 06/17/20 08:25 Aspirin 300 Mg S upp [place] 300 mg DAILY BOBBY Administration Clopidogrel Bisulf ate 75 mg 06/11/20 09:00 06/17/20 08:29 Clopidogrel 75 M g Tablet PO Not Given DAILY BOBBY Dexamethasone 0.5 mg 06/14/20 17:30 06/17/20 15:16 Dexamethasone 4 Mg/Ml Inj IVP 0.5 mg Q6H BOBBY Administration Enoxaparin Sodium 30 mg 06/16/20 15:15 06/17/20 15:16 Enoxaparin 30 Mg /0.3 Ml Syringe SUBCUT 30 mg Q24H BOBBY Administration Famotidine 20 mg 06/14/20 17:30 06/17/20 06:17 Famotidine 20 Mg /2 Ml Inj IVP 20 mg Q12H BOBBY Administration Fludrocortisone Ac etate 0.1 mg 06/11/20 09:00 06/17/20 08:29 Fludrocortisone 0.1 Mg Tablet PO Not Given DAILY BOBBY Ceftriaxone Sodium 1,000 mg/ 50 mls @ 100 mls/ hr 06/14/20 17:30 06/17/20 07:37 Sodium Chloride IV Infused Q24H BOBBY Infusion Protocol Potassium Chloride /Sodium Chloride 20 meq in 1,000 m ls @ 50 mls/hr 06/14/20 17:30 06/17/20 06:16 Sodium Chlor 0.9 % + Kcl 20 Meq IV 50 mls/hr .Q20H BOBBY Administration Levetiracetam 250 mg/ Sodium 52.5 mls @ 100 ml s/hr 06/16/20 10:00 06/17/20 15:20 Chloride IV Infused Q12H BOBBY Infusion Levothyroxine Sodi um 75 mcg 06/12/20 06:00 06/17/20 06:17 Levothyroxine 15 0 Mcg Tablet PO Not Given QAM BOBBY Vitals/I&O/Wt Last Vital Signs Temp 98.2 F 06/17/20 11:48 Pulse 82 06/17/20 11:48 Resp 18 06/17/20 11:48 BP 144/76 06/17/20 11:48 Pulse Ox 95 06/17/20 11:48 06/17/20 06/17/20 06/17/20 06:59 14:59 22:59 Intake Total 948.333 / 2240.833 102.5 / 102.5 52.5 / 155.0 Output Total 550 / 1250 Balance 398.333 / 990.833 102.5 / 102.5 52.5 / 155.0 Physical Exam Narrative: EXAM NARRATIVE: Patient is awake and alert. No acute distress. Verbal. Eyes PERRL. Skin is warm and dry. Moist mucous membranes. Neck supple. No JVD Lungs clear. No respiratory distress Heart S1, S2, regular Abdomen soft, nontender, bowel sounds are present Extremities no edema cyanosis or calf tenderness bilaterally new Neuro evaluation. Aphasia is present. Bilateral weakness worse on the right side. Facial symmetry. Urinary Catheter Management^: Olson: Cath Placed During This Visit: yes Reason for Continuing Indwelling Catheter: Acute Urinary Retention or Obstruction Urinary Catheter Date of Insertion: 06/09/20 Urinary Catheter Time of Insertion: 09:00 Data : 06/15/20 05:15 06/16/20 04:49 Micro: Microbiology 06/12/20 08:15 Blood Culture - Final Blood NO GROWTH AFTER 5 DAYS 06/12/20 06:59 Blood Culture - Final Blood NO GROWTH AFTER 5 DAYS A&P Assessment and plan (1) Altered mental status: Etiology unclear. Although no overt seizure activity must still consider this as during 2 concerning episodes elevation of heart rate and decreased saturation occurred. CK is also noted to be elevated. 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 Cannot completely rule out recurrent CVA. Reviewed in detail concerns with . He does not want any significant invasive testing currently, and wants us to medically manage her condition. At this point do not plan on EEG. Keppra was initiated on admission. She has now woken up since admission and her ability to participate in conversation and therapy varies on a day-to-day basis. would like her to go home with home health and does not want her placed in skilled care again. Status: Acute Qualifiers: Altered mental status type: unspecified Qualified Code(s): R41.82 - Altered mental status, unspecified (2) Dehydration: Resolved. Discontinue IV hydration Status: Acute (3) CVA (cerebral vascular accident): DVT prophylaxis with Lovenox Continue Plavix and aspirin PT/ST/OT. She is now able to tolerate a dysphagia diet Status: Acute (4) Hypokalemia: Repeat supplementation Magnesium level has been checked, and normal. Status: Acute (5) Abnormal EKG: No further work-up planned secondary to other comorbidities. Discussed in detail with . Continue Plavix, aspirin . 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 This was given at stress dose until June 12 and converted to home dose of 1 mg Continue thyroid hormone. Change to p.o. Note the dose was increased to 75 mcg T4 level, free was checked and normal Fludrocortisone was added secondary to soft blood pressures, history of panhypopituitarism and she appears to be tolerating this well with no evidence of fluid overload Status: Acute (7) Rhabdomyolysis: Improved. CK level does not need rechecked Status: Acute (8) Bacteremia: Blood culture from admission has now grown 3/4 bottles staph epi. I believe this is likely contamination. She has no central lines last hospital stay. In talking with microbiology, initial blood culture was obtained peripherally and second blood culture drawn from IV. I believe both of these blood cultures were drawn from the same area. Therefore vancomycin is discontinued today Urine culture is growing gram-negative bruce currently. Will place patient on cefdinir. Unsure if this is truly a pathogen or asymptomatic bacteriuria. Either way it is safer to treat at this point as patient cannot relate symptoms. Awaiting identification and sensitivity. Preliminary is E. coli. CT chest abdomen pelvis did not demonstrate any acute process to explain bacteremia A repeat blood culture was ordered prior to starting vancomycin but canceled by laboratory. Further cultures have not shown any growth to date. Status: Acute Additional A&P Information 1) Altered mental status: Etiology unclear. Although no overt seizure activity must still consider this as during 2 concerning episodes elevation of heart rate and decreased saturation occurred. CK is also noted to be elevated. 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 Cannot completely rule out recurrent CVA. Reviewed in detail concerns with . He does not want any significant invasive testing currently, and wants us to medically manage her condition. At this point do not plan on EEG. Keppra was initiated on admission. She has now woken up since admission and her ability to participate in conversation and therapy varies on a day-to-day basis. would like her to go home with home health and does not want her placed in skilled care again. Status: Acute Qualifiers: Altered mental status type: unspecified Qualified Code(s): R41.82 - Altered mental status, unspecified (2) Dehydration: Resolved. Discontinue IV hydration Status: Acute (3) CVA (cerebral vascular accident): DVT prophylaxis with Lovenox Continue Plavix and aspirin PT/ST/OT. She is now able to tolerate a dysphagia diet Status: Acute (4) Hypokalemia: Repeat supplementation Magnesium level has been checked, and normal. Status: Acute (5) Abnormal EKG: No further work-up planned secondary to other comorbidities. Discussed in detail with . Continue Plavix, aspirin . 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 This was given at stress dose until June 12 and converted to home dose of 1 mg Continue thyroid hormone. Change to p.o. Note the dose was increased to 75 mcg T4 level, free was checked and normal Fludrocortisone was added secondary to soft blood pressures, history of panhypopituitarism and she appears to be tolerating this well with no evidence of fluid overload Status: Acute (7) Rhabdomyolysis: Improved. CK level does not need rechecked Status: Acute (8) Bacteremia: Blood culture from admission has now grown 3/4 bottles staph epi. I believe this is likely contamination. She has no central lines last hospital stay. In talking with microbiology, initial blood culture was obtained peripherally and second blood culture drawn from IV. I believe both of these blood cultures were drawn from the same area. Therefore vancomycin is discontinued today Urine culture is growing gram-negative bruce currently. Will place patient on cefdinir. Unsure if this is truly a pathogen or asymptomatic bacteriuria. Either way it is safer to treat at this point as patient cannot relate symptoms. Awaiting identification and sensitivity. Preliminary is E. coli. CT chest abdomen pelvis did not demonstrate any acute process to explain bacteremia A repeat blood culture was ordered prior to starting vancomycin but canceled by laboratory. Further cultures have not shown any growth to date. Status: Acute Additional A&P Information Abnormal LFTs. Improved. Statin held on admission secondary to this. Anemia. No evidence of active bleeding. Hemoglobin stable Hypertension. Blood pressure is low normal. Medication stopped. History of diastolic dysfunction. No evidence of heart failure clinically. Allow natural . Discussed in detail with Mallorynox for DVT prophylaxis 06/13 discontinued vancomycin. Awaiting urine culture results. Patient less interactive today, and needs further therapy prior to discharge home with home health and therapies. Discussed with family and they are trying to arrange care at Daughter- in- Law's house hopefully by Tuesday. [place] Altered mental status. 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 MRI did not show any new acute changes, evolving stroke. I suspect that some changes in mental status could be secondary to Keppra. I decreased the dose. Currently improving mental status. Continue aspirin and Plavix. Probably will be able to discharge her home tomorrow. Dysphagia. The patient failed speech eval. the is requesting new evaluation for today excited about improvement of her mental status. He is convinced that she will pass it this time. He is hoping that they will be able to avoid PEG tube placement. I think when she goes home she would benefit from hospital bed to prevent future complications: Pressure ulcers and aspirations. We will ask case management to arrange it for her. DVT prophylaxis. Lovenox. UTI. Continue Rocephin. Hypotension. Improved with fludrocortisone. Disposition. Patient's does not want her to go to senior living facility. He wants her to come back home. Case management will help with home health care. The plan of care was discussed with the today. He verbalized understanding and agreement. Attestations Medical Necessity Statement*: Hopefully home tomorrow. Coding Level of Care Code Acute Knockdown Worker for [facility] Diagnoses Altered mental status R41.82 Altered mental status type: unspecified Dehydration E86.0 CVA (cerebral vascular accident) I63.9 Hypokalemia E87.6 Abnormal EKG R94.31 Panhypopituitarism E23.0 Rhabdomyolysis M62.82 Bacteremia R78.81
[2020-06-17 16:00] VITALS: BP 157/89; PULSE 86; RESP 18; TEMP 36.4; O2SAT 97
[2020-06-17] MEDS: cefTRIAXone 1,000 MG in sodium chloride 0.9% (plus) 50 ML 100 MG IV (17:07)
[2020-06-17 19:20] VITALS: BP 147/76; PULSE 83; RESP 17; TEMP 36.8; O2SAT 92
[2020-06-18] VITALS (7 sets, daily range): BP systolic 116–155; BP diastolic 73–89; PULSE 62–90; RESP 16–18; TEMP 36.3–37.3; O2SAT 93–96
[2020-06-18] MEDS: dexamethasone 4 mg/mL INJ 0.5 MG IVP ×3 (02:44→14:41)
[2020-06-18] MEDS: famotidine 20 mg/2 mL INJ IVP ×2 (05:35→16:48)
[2020-06-18 08:51] LABS: Basophils % 0.1 %; Hematocrit 42.1 % (37.0-47.0); Hemoglobin 13.4 g/dL (11.5-15.3); Lymphocytes # 0.7 10^3/uL (0.8-4.8); Lymphocytes % 9.3 %; Mean Corpuscular HGB Conc 31.8 g/dL (30.0-36.0); Mean Corpuscular Hemoglobin 29.8 pg (28.0-34.0); Mean Corpuscular Volume 93.6 fL (81-99); Mean Platelet Volume 10.6 fL (7.4-10.4); Monocytes # 0.4 10^3/uL (0.2-0.9); Nucleated Red Blood Cells % 0 %; Platelet Count 279 10^3/cmm (130-400); Red Cell Distribution Width 13.6 % (12.1-15.1)
[2020-06-18] MEDS: fludrocortisone 0.1 mg Tablet PO (09:03)
[2020-06-18] MEDS: sodium chlor 0.9% + KCl 20 mEq 20 MEQ/1,000 ML BAG 50 MEQ IV (09:04)
[2020-06-18 09:31] LABS: Albumin Level 3.7 g/dL (3.5-5.2); Blood Urea Nitrogen 13 mg/dL (8-23); Calcium 9.2 mg/dL (8.5-10.5); Carbon Dioxide 27 mmol/L (22-29); Chloride 104 mmol/L (98-107); Glucose 102 mg/dL (65-115); Phosphorus 2.9 mg/dL (2.5-4.5); Sodium 142 mmol/L (136-145)
[2020-06-18 09:32] LABS: Magnesium 2.3 mg/dL (1.7-2.3)
--- NOTE | 2020-06-18 10:04 | PM.PN ---
Subjective Subjective: Interval history: The patient seems to have some difficulty answering questions for this morning, but still will attempted and follow me with her eyes. Her is not here at the moment. Vitals/I&O/Wt Last Vital Signs Temp 98.3 F 06/18/20 08:00 Pulse 79 06/18/20 08:00 Resp 18 06/18/20 08:00 BP 155/77 06/18/20 08:00 Pulse Ox 94 06/18/20 08:00 06/17/20 06/18/20 06/18/20 22:59 06:59 14:59 Intake Total 105.0 / 1207.5 1000 / 1207.5 50 / 50 Output Total 1650 / 1850 200 / 1850 Balance -1545.0 / -642.5 800 / -642.5 50 / 50 Physical Exam Narrative: EXAM NARRATIVE: Abdomen remains soft. Urinary Catheter Management^: Olson: Cath Placed During This Visit: yes Reason for Continuing Indwelling Catheter: Acute Urinary Retention or Obstruction Urinary Catheter Date of Insertion: 06/09/20 Urinary Catheter Time of Insertion: 09:00 Data : 06/18/20 08:38 06/18/20 08:38 Micro: Microbiology 06/12/20 08:15 Blood Culture - Final Blood NO GROWTH AFTER 5 DAYS 06/12/20 06:59 Blood Culture - Final Blood NO GROWTH AFTER 5 DAYS A&P Assessment and plan (1) Dysphagia: We can try to try to advance the patient's diet; will allow speech therapy to determine what is most appropriate. Holding on PEG tube for now. Status: Acute (2) Altered mental status: Status: Acute Qualifiers: Altered mental status type: unspecified Qualified Code(s): R41.82 - Altered mental status, unspecified Attestations Medical Necessity Statement*: See admitting service's notation. Coding Level of Care Code Acute Multimedia Programmer for [facility] Fwd Diagnoses Dysphagia R13.10 Altered mental status R41.82 Altered mental status type: unspecified
[2020-06-18] MEDS: enoxaparin 30 mg/0.3 mL Syringe SUBCUT (14:41)
--- NOTE | 2020-06-18 16:15 | PM.PN ---
Subjective Subjective: Interval history: The patient is a little bit more tired today. Less cooperative. Her performance overall has decreased. Did not eat well. No other significant changes. Medications: Reviewed: Yes Medication Review Details: Generic Name Dose Route Start Last Admin Trade Name Vinny PRN Reason Stop Dose Admin Aspirin 300 mg 06/15/20 09:00 06/18/20 09:04 Aspirin 300 Mg S upp NM Not Given DAILY BOBBY Clopidogrel Bisulf ate 75 mg 06/11/20 09:00 06/18/20 09:04 Clopidogrel 75 M g Tablet PO Not Given DAILY BOBBY Dexamethasone 0.5 mg 06/14/20 17:30 06/18/20 14:41 Dexamethasone 4 Mg/Ml Inj IVP 0.5 mg Q6H BOBBY Administration Enoxaparin Sodium 30 mg 06/16/20 15:15 06/18/20 14:41 Enoxaparin 30 Mg /0.3 Ml Syringe SUBCUT 30 mg Q24H BOBBY Administration Famotidine 20 mg 06/14/20 17:30 06/18/20 05:35 Famotidine 20 Mg /2 Ml Inj IVP 20 mg Q12H BOBBY Administration Fludrocortisone Ac etate 0.1 mg 06/11/20 09:00 06/18/20 09:03 Fludrocortisone 0.1 Mg Tablet PO 0.1 mg DAILY BOBBY Administration Ceftriaxone Sodium 1,000 mg/ 50 mls @ 100 mls/ hr 06/14/20 17:30 06/18/20 10:00 Sodium Chloride IV Infused Q24H BOBBY Infusion Protocol Potassium Chloride /Sodium Chloride 20 meq in 1,000 m ls @ 50 mls/hr 06/14/20 17:30 06/18/20 09:04 Sodium Chlor 0.9 % + Kcl 20 Meq IV 50 mls/hr .Q20H BOBBY Administration Levetiracetam 250 mg/ Sodium 52.5 mls @ 100 ml s/hr 06/16/20 10:00 06/18/20 14:44 Chloride IV Infused Q12H BOBBY Infusion Levothyroxine Sodi um 75 mcg 06/12/20 06:00 06/18/20 06:21 Levothyroxine 15 0 Mcg Tablet PO Not Given QAM BOBBY Vitals/I&O/Wt Last Vital Signs Temp 97.6 F 06/18/20 15:37 Pulse 68 06/18/20 15:37 Resp 17 06/18/20 15:37 BP 116/73 06/18/20 15:37 Pulse Ox 95 06/18/20 15:37 06/18/20 06/18/20 06/18/20 06:59 14:59 22:59 Intake Total 1000 / 1207.5 102.5 / 102.5 Output Total 200 / 1850 550 / 550 Balance 800 / -642.5 102.5 / 102.5 -550 / -447.5 Physical Exam Narrative: EXAM NARRATIVE: AA. No acute distress. Averbal. Eyes PERRL. Skin is warm and dry. Moist mucous membranes. Neck supple. No JVD Lungs clear. No respiratory distress Heart S1, S2, regular Abdomen soft, nontender, bowel sounds are present Extremities no edema cyanosis or calf tenderness bilaterally new Neuro evaluation. Aphasia is present. Bilateral weakness worse on the right side. Facial symmetry. Urinary Catheter Management^: Olson: Cath Placed During This Visit: yes Reason for Continuing Indwelling Catheter: Acute Urinary Retention or Obstruction Urinary Catheter Date of Insertion: 06/09/20 Urinary Catheter Time of Insertion: 09:00 Data : 06/18/20 08:38 06/18/20 08:38 A&P Assessment and plan (1) Altered mental status: Etiology unclear. Although no overt seizure activity must still consider this as during 2 concerning episodes elevation of heart rate and decreased saturation occurred. CK is also noted to be elevated. 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 Cannot completely rule out recurrent CVA. Reviewed in detail concerns with . He does not want any significant invasive testing currently, and wants us to medically manage her condition. At this point do not plan on EEG. Keppra was initiated on admission. She has now woken up since admission and her ability to participate in conversation and therapy varies on a day-to-day basis. would like her to go home with home health and does not want her placed in skilled care again. Status: Acute Qualifiers: Altered mental status type: unspecified Qualified Code(s): R41.82 - Altered mental status, unspecified (2) Dehydration: Resolved. Discontinue IV hydration Status: Acute (3) CVA (cerebral vascular accident): DVT prophylaxis with Lovenox Continue Plavix and aspirin PT/ST/OT. She is now able to tolerate a dysphagia diet Status: Acute (4) Hypokalemia: Repeat supplementation Magnesium level has been checked, and normal. Status: Acute (5) Abnormal EKG: No further work-up planned secondary to other comorbidities. Discussed in detail with . Continue Plavix, aspirin . 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 This was given at stress dose until June 12 and converted to home dose of 1 mg Continue thyroid hormone. Change to p.o. Note the dose was increased to 75 mcg T4 level, free was checked and normal Fludrocortisone was added secondary to soft blood pressures, history of panhypopituitarism and she appears to be tolerating this well with no evidence of fluid overload Status: Acute (7) Rhabdomyolysis: Improved. CK level does not need rechecked Status: Acute (8) Bacteremia: Blood culture from admission has now grown 3/4 bottles staph epi. I believe this is likely contamination. She has no central lines last hospital stay. In talking with microbiology, initial blood culture was obtained peripherally and second blood culture drawn from IV. I believe both of these blood cultures were drawn from the same area. Therefore vancomycin is discontinued today Urine culture is growing gram-negative bruce currently. Will place patient on cefdinir. Unsure if this is truly a pathogen or asymptomatic bacteriuria. Either way it is safer to treat at this point as patient cannot relate symptoms. Awaiting identification and sensitivity. Preliminary is E. coli. CT chest abdomen pelvis did not demonstrate any acute process to explain bacteremia A repeat blood culture was ordered prior to starting vancomycin but canceled by laboratory. Further cultures have not shown any growth to date. Status: Acute Additional A&P Information 1) Altered mental status: Etiology unclear. Although no overt seizure activity must still consider this as during 2 concerning episodes elevation of heart rate and decreased saturation occurred. CK is also noted to be elevated. 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 Cannot completely rule out recurrent CVA. Reviewed in detail concerns with . He does not want any significant invasive testing currently, and wants us to medically manage her condition. At this point do not plan on EEG. Keppra was initiated on admission. She has now woken up since admission and her ability to participate in conversation and therapy varies on a day-to-day basis. would like her to go home with home health and does not want her placed in skilled care again. Status: Acute Qualifiers: Altered mental status type: unspecified Qualified Code(s): R41.82 - Altered mental status, unspecified (2) Dehydration: Resolved. Discontinue IV hydration Status: Acute (3) CVA (cerebral vascular accident): DVT prophylaxis with Lovenox Continue Plavix and aspirin PT/ST/OT. She is now able to tolerate a dysphagia diet Status: Acute (4) Hypokalemia: Repeat supplementation Magnesium level has been checked, and normal. Status: Acute (5) Abnormal EKG: No further work-up planned secondary to other comorbidities. Discussed in detail with . Continue Plavix, aspirin . 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 This was given at stress dose until June 12 and converted to home dose of 1 mg Continue thyroid hormone. Change to p.o. Note the dose was increased to 75 mcg T4 level, free was checked and normal Fludrocortisone was added secondary to soft blood pressures, history of panhypopituitarism and she appears to be tolerating this well with no evidence of fluid overload Status: Acute (7) Rhabdomyolysis: Improved. CK level does not need rechecked Status: Acute (8) Bacteremia: Blood culture from admission has now grown 3/4 bottles staph epi. I believe this is likely contamination. She has no central lines last hospital stay. In talking with microbiology, initial blood culture was obtained peripherally and second blood culture drawn from IV. I believe both of these blood cultures were drawn from the same area. Therefore vancomycin is discontinued today Urine culture is growing gram-negative bruce currently. Will place patient on cefdinir. Unsure if this is truly a pathogen or asymptomatic bacteriuria. Either way it is safer to treat at this point as patient cannot relate symptoms. Awaiting identification and sensitivity. Preliminary is E. coli. CT chest abdomen pelvis did not demonstrate any acute process to explain bacteremia A repeat blood culture was ordered prior to starting vancomycin but canceled by laboratory. Further cultures have not shown any growth to date. Status: Acute Additional A&P Information Abnormal LFTs. Improved. Statin held on admission secondary to this. Anemia. No evidence of active bleeding. Hemoglobin stable Hypertension. Blood pressure is low normal. Medication stopped. History of diastolic dysfunction. No evidence of heart failure clinically. Allow natural . Discussed in detail with Mallorynox for DVT prophylaxis 06/13 discontinued vancomycin. Awaiting urine culture results. Patient less interactive today, and needs further therapy prior to discharge home with home health and therapies. Discussed with family and they are trying to arrange care at Daughter- in- Law's house hopefully by Tuesday. [place] Altered mental status. 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 MRI did not show any new acute changes, evolving stroke. I suspect that some changes in mental status could be secondary to Keppra. I decreased the dose. Continue aspirin and Plavix. Dysphagia. There is still concerned that the patient is noting eating still persist. There is still risk for aspirations. However the is hesitant with decision regarding PEG tube placement.We will try to discuss again. DVT prophylaxis. Lovenox. UTI. Continue Rocephin. Hypotension. Improved with fludrocortisone. Disposition. Patient's does not want her to go to correction facility. He wants her to come back home. Case management will help with home health care. Attestations Medical Necessity Statement*: Discharge home today or tomorrow depending on results of discussions with the Coding Level of Care Code Acute Optical Instrument Inspector for g Fwd Diagnoses Altered mental status R41.82 Altered mental status type: unspecified Dehydration E86.0 CVA (cerebral vascular accident) I63.9 Hypokalemia E87.6 Abnormal EKG R94.31 Panhypopituitarism E23.0 Rhabdomyolysis M62.82 Bacteremia R78.81
[2020-06-18] MEDS: cefTRIAXone 1,000 MG in sodium chloride 0.9% (plus) 50 ML 100 MG IV (16:48)
--- NOTE | 2020-06-18 17:13 | P.DS_ITS ---
Discharge Providers Date of Admission: 06/10/20 09:42 Date of Discharge: June 18, 2020 Attending Provider at Admission: Reagan Medrano MD Attending Provider at Discharge: Seb Junior Primary Care Provider: Selma Marks APN Diagnoses at Discharge Discharge Diagnosis (1) Altered mental status: Status: Acute Qualifiers: Altered mental status type: unspecified Qualified Code(s): R41.82 - Altered mental status, unspecified (2) Dehydration: Status: Acute (3) CVA (cerebral vascular accident): Status: Acute (4) Hypokalemia: Status: Acute (5) Abnormal EKG: Status: Acute (6) Panhypopituitarism: Status: Acute (7) Rhabdomyolysis: Status: Acute (8) Bacteremia: Status: Acute Reason for Visit Reason for Visit: [facility] Hospital Course Hospital Course See patient's H&P, consult notes and progress notes for more details. Briefly, the patient was admitted due to altered mental status. New CVA versus seizure was suspected. However new MRI did not reveal any new stroke. There is no evidence of seizures either. I am going to stop the Keppra prior to discharge. I think is contributing to her altered mental status and confusion. Overall her mental status has improved. However there is a still concerned about dysphagia and aspiration. We had a long discussion on several occasions with the who is the primary caregiver. At this time he does not want PEG tube placement. He declined SNF placement. He wants to take the patient home. He is sure that he can take care of the patient. Altered mental status. 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 MRI did not show any new acute changes, evolving stroke. I suspect that some changes in mental status could be secondary to Keppra. Continue aspirin and Plavix. Dysphagia. As above. DVT prophylaxis. Received Lovenox. UTI. Completed treatment with Rocephin. Hypotension. Improved with fludrocortisone. Home metoprolol is discontinued. Further adjustments to medications per primary care physician. Physical Exam Narrative: EXAM NARRATIVE: AA. No acute distress. Averbal. Eyes PERRL. Skin is warm and dry. Moist mucous membranes. Neck supple. No JVD Lungs clear. No respiratory distress Heart S1, S2, regular Abdomen soft, nontender, bowel sounds are present Extremities no edema cyanosis or calf tenderness bilaterally new Neuro evaluation. Aphasia is present. Bilateral weakness worse on the right side. Urinary Catheter Management^: Olson: Cath Placed During This Visit: yes Reason for Continuing Indwelling Catheter: Acute Urinary Retention or Obstruction Urinary Catheter Date of Insertion: 06/09/20 Urinary Catheter Time of Insertion: 09:00 Discharge Data Data Completed and Pending: Completed Studies During Hospitalization Category Date Time Status CT chest abd pel wo con Routine Cat Scan 06/11/20 07:[address] head wo con* 7 0450 Stat Cat Scan 06/09/20 09:00 Completed XR chest 1V carlos ble [id number] Stat Exams 06/09/20 09:01 Completed MR head wo con* 7 0551 Stat MRI 06/14/20 10:44 [place] [id number] [facility] at Ultrasound 06/09/20 11:06 Completed Pending at discharge Category Date Time Status Blood Culture Sta t Lab 06/14/20 18:15 Results Labs from last 24 hours 06/18/20 06/18/20 06/18/20 08:38 08:38 08:38 WBC 7.0 RBC 4.50 Hgb 13.4 Hct 42.1 MCV 93.6 MCH 29.8 MCHC 31.8 RDW 13.6 Plt Count 279 MPV 10.6 H Neut % (Auto) 83.0 Lymph % (Auto) 9.3 [place] % (Auto) 6.0 Eos % (Auto) 0.0 Baso % (Auto) 0.1 Neut # (Auto) 5.80 Lymph # (Auto) 0.7 L [place] # (Auto) 0.4 Eos # (Auto) 0.0 Baso # (Auto) 0.0 Nucleated RBC % (a uto) 0 Nucleated RBCs # 0.0 Sodium 142 Potassium 4.0 Chloride 104 Carbon Dioxide 27 Anion Gap 15.0 BUN 13 Creatinine 0.7 GFR Calculation Not Reportable Glucose 102 Calcium 9.2 Phosphorus 2.9 Magnesium 2.3 Albumin 3.7 Vitals: Last Vital Signs Temp 97.6 F 06/18/20 15:37 Pulse 68 06/18/20 15:37 Resp 17 06/18/20 15:37 BP 116/73 06/18/20 15:37 Pulse Ox 95 06/18/20 15:37 Discharge Plan Discharge Patient Disposition: Home Condition: Stable Prescriptions: New fludrocortisone 0.1 mg Tablet 0.1 mg PO DAILY Qty: 30 RF: 0 Continued acetaminophen [Tylenol Extra Strength] 500 mg tablet 500 mg PO BID PRN (Reason: PAIN/FEVER) RF: 0 cranberry extract [Cranberry Concentrate] 500 mg capsule 500 mg PO DAILY RF: 0 loperamide 2 mg capsule 2 mg PO Q4H PRN (Reason: Diarrhea) RF: 0 mecobalamin (vitamin B12) 5,000 mcg tablet,disintegrating 5,000 mcg PO DAILY RF: 0 nitroglycerin [Nitrostat] 0.4 mg tablet, sublingual 0.4 mg SUBLINGUAL Q5M PRN (Reason: chest pain) Qty: 14 RF: 0 aspirin 81 mg Tablet,Delayed Release (Dr/Ec) 81 mg PO DAILY 30 Days Qty: 30 RF: 0 atorvastatin 40 mg Tablet 80 mg PO Q24H 30 Days Qty: 30 RF: 0 clopidogrel 75 mg Tablet 75 mg PO DAILY 30 Days Qty: 30 RF: 0 famotidine 20 mg Tablet 20 mg PO BID 30 Days Qty: 60 RF: 0 levothyroxine [Synthroid] 75 mcg tablet 50 mcg PO DAILY Qty: 0 RF: 0 dexamethasone 0.5 mg tablet 1 mg PO DAILY Qty: 0 RF: 0 Discontinued metoprolol succinate 50 mg tablet extended release 24 hr 100 mg PO DAILY RF: 0 potassium 99 mg tablet 99 mg PO DAILY PRN (Reason: UNKNOWN) RF: 0 Discharge Orders: Discharge Order (Routine); Ordered 06/18/20 Ordered By: Seb Junior Ref[facility]: [facility] [place] [facility] [Outside] Marks,EL Hahn [Primary Care Provider] - Discharge Diet: As Directed Discharge Activity: Increase activity as tolerated Patient Instructions: Aspiration, Seizures Activity Restrictions/Additional Instructions: Please continue diet with aspiration precautions per speech therapy recommendations and precautions. Please return to emergency room if develop increasing cough, shortness of breath, decreasing oral intake, fevers or chills, confusion, weakness, seizures, or any other new complaints. Please follow-up with your primary care physician and primary neurologist for long-term management of chronic medical problems. Discharge Attestations Time Spent in Discharge Care*: greater than 30 min Quality Metrics Clinical Quality Measures During this hospital stay, did patient experience: None Coding Level of Care Code Acute Cemetery Laborer for Chg Fwd Diagnoses Altered mental status R41.82 Altered mental status type: unspecified Dehydration E86.0 CVA (cerebral vascular accident) I63.9 Hypokalemia E87.6 Abnormal EKG R94.31 Panhypopituitarism E23.0 Rhabdomyolysis M62.82 Bacteremia R78.81
--- NOTE | 2020-06-18 18:47 | PC.NURSE ---
pt confused and is unable to sign discharge paperwork. discussed paperwork via telephone with , Mark Anthony. all questions answered.
== END 2020-06-18 23:13 | disposition home or self-care (01) | DRG 872 ==
LOC: ER 12:51 → MEDSURG 13:30
PROVIDERS: Admitting Provider Internal Medicine; Emergency Provider Family Medicine; PCP Nurse Practitioner Family; Visit Provider Internal Medicine
DX: R78.81 Bacteremia (principal); E23.0 Hypopituitarism; M62.82 Rhabdomyolysis; N39.0 Urinary tract infection, site not specified; E86.0 Dehydration; E87.6 Hypokalemia; Z66 Do not resuscitate; Z86.73 Personal history of transient ischemic attack (TIA), and cerebral infarction without residual deficits; I95.9 Hypotension, unspecified; R13.10 Dysphagia, unspecified; I10 Essential (primary) hypertension; D64.9 Anemia, unspecified
CPT/HCPCS: 12345; 36415; 36600; 51702; 70450; 70551; 71045; 71250; 74176; 76705; 80051; 80053; 80069; 80202; 81001; 82009; 82140; 82330; 82550; 82805; 83605; 83735; 84439; 84484; 85025; 87040; 87077; 87086; 87186; 87205; 90471; 90686; 90732; 92507; 92523; 92526; 92610; 93005; 96372; 96375; 97110; 97116; 97161; 97166; 97530; 97535; 99283; G0378; J0696; J1100; J1650; J1953; J3370; J3480; J3490; J7040

== ENCOUNTER 2021-08-12 14:01 | Outpatient (CLI) | payer MEDICARE, BC, SELFPAY ==
[2021-08-12 16:29] LABS: Basophils # 0.1 10^3/uL (0.0-0.1); Basophils % 0.4 %; Eosinophils % 0.1 %; Hematocrit 43.6 % (37.0-47.0); Hemoglobin 13.6 g/dL (11.5-15.3); Lymphocytes # 1.2 10^3/uL (0.8-4.8); Lymphocytes % 8.3 %; Mean Corpuscular HGB Conc 31.2 g/dL (30.0-36.0); Mean Platelet Volume 10.7 fL (7.4-10.4); Monocytes # 0.6 10^3/uL (0.2-0.9); Neutrophils # 12.21 10^3/uL (1.8-7.7); Neutrophils % 86.7 %; Nucleated Red Blood Cells % 0 %; Platelet Count 199 10^3/cmm (130-400); Red Blood Count 4.54 10^6/uL (4.1-5.3); Red Cell Distribution Width 16.9 % (12.1-15.1); White Blood Count 14.1 10^3/uL (4.0-10.0)
[2021-08-12 16:44] LABS: INR 0.94 (0.8-1.2)
[2021-08-12 16:54] LABS: Estmated Average Glucose 117; Hemoglobin A1C 5.7 % (4.0-6.0)
[2021-08-12 17:04] LABS: Alanine Aminotransferase 25 U/L (0-33); Albumin Level 3.8 g/dL (3.5-5.2); Alkaline Phosphatase 110 IU/L (35-105); Anion Gap 17.9 (5-19); Aspartate Amino Transferase 31 U/L (0-32); Blood Urea Nitrogen 9 mg/dL (8-23); Calcium 9.2 mg/dL (8.5-10.5); Carbon Dioxide 35 mmol/L (22-29); Chloride 94 mmol/L (98-107); Chol HDL Ratio 3.02 mg/dL (0.0-4.40); Cholesterol 169 mg/dL (0-200); Free T4 Free Thyroxine 1.16 ng/dL (0.82-1.77); Globulin 1.9 g/dL (1.3-4.6); Glucose 160 mg/dL (65-115); HDL Cholesterol 56 mg/dL (60-100); LDL Cholesterol Calculated 69 mg/dL (50-129); LDL HDL Ratio 1.23 RATIO (0.00-3.22); Osmolality Calculated 302 mOsm/kg (285-295); Sodium 145 mmol/L (136-145); Thyroid Stimulating Hormone 0.48 uIU/mL (0.27-4.20); Total Bilirubin 0.7 mg/dL (0.15-1.2); Total Protein 5.7 g/dL (6.6-8.7); Triglycerides 221 mg/dL (0-150)
[2021-08-12 19:23] LABS: Vitamin B12 > 2000 pg/mL (232-1245)
[2021-08-13 08:59] LABS: Potassium 1.9 mmol/L (3.5-5.1)
== END 2021-08-12 14:02 | disposition home or self-care (01) ==
LOC: LAB 14:16
PROVIDERS: PCP Nurse Practitioner Family; Visit Provider Nurse Practitioner Family
DX: I69.351 Hemiplegia and hemiparesis following cerebral infarction affecting right dominant side (principal)
CPT/HCPCS: 80053; 80061; 82607; 83036; 84439; 84443; 85025; 85610

== ENCOUNTER 2021-08-27 15:36 | Outpatient (CLI) | payer MEDICARE, SELFPAY ==
[2021-08-27 18:26] LABS: Basophils % 0.2 %; Eosinophils % 0.2 %; Hematocrit 42.1 % (37.0-47.0); Hemoglobin 13.2 g/dL (11.5-15.3); Lymphocytes # 1.3 10^3/uL (0.8-4.8); Lymphocytes % 12.6 %; Mean Corpuscular HGB Conc 31.4 g/dL (30.0-36.0); Mean Corpuscular Hemoglobin 30.8 pg (28.0-34.0); Mean Corpuscular Volume 98.4 fl (81-99); Monocytes # 0.4 10^3/uL (0.2-0.9); Neutrophils # 8.74 10^3/uL (1.8-7.7); Neutrophils % 82.2 %; Nucleated Red Blood Cells % 0 %; Platelet Count 170 10^3/cmm (130-400); Red Blood Count 4.28 10^6/uL (4.1-5.3); Red Cell Distribution Width 17.3 % (12.1-15.1); White Blood Count 10.6 10^3/uL (4.0-10.0)
[2021-08-27 18:36] LABS: Alanine Aminotransferase 44 U/L (0-33); Albumin Level 3.7 g/dL (3.5-5.2); Alkaline Phosphatase 113 IU/L (35-105); Anion Gap 18.2 (5-19); Aspartate Amino Transferase 43 U/L (0-32); Blood Urea Nitrogen 11 mg/dL (8-23); Calcium 9.2 mg/dL (8.5-10.5); Carbon Dioxide 23 mmol/L (22-29); Chloride 103 mmol/L (98-107); Globulin 2.5 g/dL (1.3-4.6); Glucose 164 mg/dL (65-115); Osmolality Calculated 295 mOsm/kg (285-295); Potassium 3.2 mmol/L (3.5-5.1); Sodium 141 mmol/L (136-145); Total Bilirubin 0.6 mg/dL (0.15-1.2); Total Protein 6.2 g/dL (6.6-8.7)
== END 2021-08-27 15:37 | disposition home or self-care (01) ==
PROVIDERS: Visit Provider Nurse Practitioner Family
DX: Z01.89 Encounter for other specified special examinations (principal)
CPT/HCPCS: 80053; 85025

== ENCOUNTER 2022-03-17 15:58 | Emergency (ER) | payer OTHER, MEDICARE, BC, SELFPAY ==
[2022-03-17 16:08] VITALS: BP 126/79; PULSE 92; RESP 16; TEMP 36.6; O2SAT 93; BMI 23.6
--- NOTE | 2022-03-17 16:19 | XRR_ITS ---
PROCEDURE INFORMATION: Exam: XR Right Ankle Exam date and time: 03/17/2022 4:34 PM Age: 71 years old Clinical indication: Pain and injury or trauma; Fall; Blunt trauma; Ankle; Right; Additional info: Fall injury with ankle pain and deformity TECHNIQUE: Imaging protocol: Radiologic exam of the Right ankle. Views: 3 or more views. COMPARISON: No relevant prior studies available. FINDINGS: Bones/joints: Oblique fracture in the distal metaphysis of the right fibula extending to the level of the ankle joint. Transverse fracture through the medial malleolus. Mild lateral displacement of the talus and malleoli. Soft tissues: Circumferential soft tissue swelling. Vasculature: Vascular calcifications. XR/XR ankle RT min 3V* [id number] IMPRESSION: Vences type B ankle fracture.
--- NOTE | 2022-03-17 16:38 | ED_ITS ---
HPI - Extremity Problem General: Chief complaint: Extremity Injury, Lower Stated complaint: Ankle Fx Time Seen by Provider: 03/17/22 16:17 History of Present Illness: Patient is a 71-year-old female comes to the ED via EMS with ankle injury from fall. EMS provided history. Past medical history of CVA and hypertension. Patient is on hospice and is nonverbal at baseline. Patient was being transferred to chair today by aide and family member and patient fell. Injury was described as patient collapsing down. Denies any head trauma or loss of consciousness. visible swelling and deformity to right ankle. She has skin tears on her bilateral elbows. Patient's son came to the ED and helped provide history of patient's injury and he validated above history details. Associated symptoms: Deny chest pain, fever(s) or rash Review of Systems Const: Denies: fever(s), chills or fatigue Eyes: Denies: change in vision or eye discomfort ENMT: Denies: throat pain, odynophagia, nasal discharge or nasal congestion Card: Denies: chest pain, palpitations, edema, swelling of feet/ankles, dyspnea on exertion or orthopnea Resp: Denies: dyspnea, productive cough or non-productive cough GI: Denies: abdominal pain, nausea, vomiting, diarrhea, constipation or hematochezia : Denies: flank pain, dysuria or hematuria Musc: Reports: extremity pain (right ankle) and extremity swelling (right ankle); Denies: neck pain or back pain Skin/Breast: Reports: new lesions (skin tears on bilateral elbows); Denies: rash Neuro: Denies: headache(s), numbness in extremities or weakness in extremities [facility] ED PFSH: Medical History Abnormal EKG Breast cancer 1996 right --breast conservation surgery followed by chemotherapy/radiation CVA (cerebral vascular accident) CVA (cerebral vascular accident) Diastolic dysfunction H/O: pituitary tumor History of stroke 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 The says we thought it might have been a tubal but we do not know for sure History of surgical removal of pituitary gland S/P lumpectomy of breast / axillary lymphadenectomy -- Right Family History Father Stroke Other CAD (coronary artery disease) Hypertension Social History Smoking and tobacco status: never smoked Alcohol intake: never Household members: spouse Marital status: Physical Exam Const: COMMON NORMALS: alert EXAM LIMITATIONS: other limitations (Patient is nonverbal) HENMT: COMMON NORMALS: normocephalic HEAD & SCALP: normocephalic MOUTH: Normal oral and palatal mucosa present THROAT: posterior oropharynx normal and uvula midline Neck/C-Spine: COMMON NORMALS: supple GENERAL: Yes normal visual inspection Resp: COMMON NORMALS: normal respiratory effort, No retractions, No use of accessory muscles and clear to auscultation bilaterally AUSCULTATION: clear to auscultation bilaterally Cardio: COMMON NORMALS: regular rate, regular rhythm, S1 normal heart sound present, S2 normal heart sound present, No gallops present (Cardio), No clicks present (Cardio), No murmurs present (Cardio) and Peripheral pulses 2+ throughout RATE: regular rate RHYTHM: regular rhythm HEART SOUNDS: S1 normal heart sound present and S2 normal heart sound present PERIPHERAL PULSES: Peripheral pulses 2+ throughout GI: COMMON NORMALS: Normal to inspection, nondistended, normoactive bowel sounds present, Soft to palpation, non-tender and no masses PALPATION: Yes Soft to palpation : COMMON NORMALS: Yes no CVA tenderness BLADDER/KIDNEY EXAM: Yes no CVA tenderness Back/Pelvis: COMMON NORMALS: no CVA tenderness Extremity: GENERAL: Yes normal exam except as noted RIGHT LOWER EXTREMITY: Yes foot & digits Right ankle: Yes inspection (Visible deformity noted), Yes palpation (Tenderness to palpation of ankle), Yes ROM (Limited due to pain) and Yes neurovascular exam (Neurovascular tact) Neuro: SENSORIUM/ORIENTATION: Yes alert Skin: NARRATIVE SKIN EXAM: Skin tears to both right and left elbows. GENERAL SKIN EXAM: dry skin Course Vital Signs: Vital signs: Vital Signs Temperature 97.8 F 03/17/22 16:08 Pulse Rate 92 03/17/22 16:08 Respiratory Rate 17 03/17/22 17:36 Blood Pressure 126/79 03/17/22 16:08 Pulse Oximetry 93 03/17/22 16:08 Oxygen Delivery Me thod 03/17/22 16:08 MDM - Extremity (Nontraumatic) Medical Decision Making Patient is a 71-year-old female comes to the ED via EMS with ankle injury from fall. EMS provided history. Past medical history of CVA and hypertension. Patient is on hospice and is nonverbal at baseline. Patient was being transferred to chair today by aide and family member and patient fell. Injury was described as patient collapsing down. Denies any head trauma or loss of consciousness. Vitals are stable. Patient has bilateral skin tears of elbows. Right ankle has obvious deformity and is tender to palpation. Neurovascular intact. X-ray of right ankle shows Vences type B ankle fracture. Patient was given dose of fentanyl to help with pain and right ankle was put in a posterior leg with stirrup splint. Patient's son helps take care of her at home and he does all of her transfers from chair to bed and patient uses a wheelchair. I told son to continue using wheelchair and no weightbearing on right leg. I placed order with case management for patient be referred to Ortho for follow- up. Patient diagnosed with right ankle fracture and skin tears and was discharged home with a prescription for hydrocodone for pain. Return to ED precautions given. Patient's son understood and agreed with plan. Lab Data Radiology Impressions Ankle X-Ray 03/17/22 16:19 IMPRESSION: Vences type B ankle fracture. Discharge Plan Discharge Patient Disposition: Home Clinical Impression: Skin tear Ankle fracture, right Qualifiers: Encounter type: initial encounter Fracture type: closed Qualified Code(s): S82.891A - Other fracture of right lower leg, initial encounter for closed fracture Condition: Stable Prescriptions: No Action acetaminophen [Tylenol Extra Strength] 500 mg tablet 500 mg PO BID PRN (Reason: PAIN/FEVER) cranberry extract [Cranberry Concentrate] 500 mg capsule 500 mg PO DAILY Rx Instructions: administer with meals clopidogrel 75 mg tablet 75 mg PO DAILY levothyroxine [Synthroid] 75 mcg tablet 75 mcg PO DAILY aspirin 81 mg tablet,chewable 81 mg PO DAILY famotidine 20 mg tablet 20 mg PO BID atorvastatin 80 mg tablet 80 mg PO DAILY mecobalamin (vitamin B12) 5,000 mcg tablet,disintegrating 5,000 mcg PO DAILY nitroglycerin [Nitrostat] 0.4 mg tablet, sublingual 0.4 mg SUBLINGUAL Q5M PRN (Reason: chest pain) Qty: 14 0RF Rx Instructions: do not exceed 3 doses per episode dexamethasone 0.5 mg tablet 1 mg PO DAILY Qty: 0 0RF fludrocortisone 0.1 mg Tablet 0.1 mg PO DAILY Qty: 30 0RF Discharge Orders: Discharge ED (Routine); Ordered 03/17/22 Ordered By: Jaun Feliz Referrals: Kendrick,EL Hanh [Primary Care Provider] - Discharge Diet: Regular Discharge Activity: Limit activity as instructed Patient Instructions: Ankle Fracture (ED), Skin Tear (ED), Opioid Safety Activity Restrictions/Additional Instructions: Follow-up with medical provider as directed. Case management should be contacting patient in the next several days to set up an appoint with Ortho for follow-up on ankle fracture. Continue taking all home medications as previously prescribed. Clean skin tears daily with some soap and water then apply triple antibiotic ointment then cover with bandage. return to the ER or your medical provider if condition worsens. Please read and understand discharge instructions. Thank you for choosing [facility] for your healthcare needs today. Please realize this is an emergency room and that we are providing you with a medical screening exam and this may not be complete and all inclusive of all the testing and or work up that you may need to determine your ailment or severity of your illness. It is very important that you follow up as instructed or that you return to the Emergency Department should you have concerns or if your condition changes or worsens in any way. Coding Level of Care Code ED Insurance Territory Manager for [employer] Exam Detailed
[2022-03-17 17:36] VITALS: RESP 17
[2022-03-17] MEDS: fentaNYL 50 mcg/mL INJ 2mL XX (17:36)
--- NOTE | 2022-03-18 09:28 | DCPLANNER ---
Addendum entered by Renetta Padilla 03/18/22 10:37: technical sales support manager received the following message from the ortho clinic regarding follow up appointment: Pts stated she is on hospice and unable to leave the house except by ambulance. Not sure if they can set up and ambulatory ride or if someone from hospice is qualified to look into her fracture? technical sales support manager called the [facility] that patient is on, which is [employer]. technical sales support manager informed company that patient was seen in the ER and that patient has a fractured ankle and that patients stated that he did not think that family would be able to transport patient to the appointment. [facility] will visit with patient and family today, to evaluate if patient will need follow up with ortho, and to see if transportation can be arranged. technical sales support manager gave [facility] ortho clinic phone number so that they could call and schedule an appointment if needed. Original Note: technical sales support manager had message to schedule a follow up appointment for patient with ortho. technical sales support manager sent patients information to the front office staff at ortho. Patients information will be printed and reviewed. Clinic will call patient with appointment information.
== END 2022-03-17 19:06 | disposition home or self-care (01) ==
PROVIDERS: Emergency Provider Physician Assistant; PCP Nurse Practitioner Family
DX: S82.891A Other fracture of right lower leg, initial encounter for closed fracture (principal); S51.012A Laceration without foreign body of left elbow, initial encounter; S51.011A Laceration without foreign body of right elbow, initial encounter; Z85.3 Personal history of malignant neoplasm of breast; Z86.73 Personal history of transient ischemic attack (TIA), and cerebral infarction without residual deficits; I10 Essential (primary) hypertension; Z79.02 Long term (current) use of antithrombotics/antiplatelets; Z79.82 Long term (current) use of aspirin; W19.XXXA Unspecified fall, initial encounter
CPT/HCPCS: 73610; 96372; 96374; 99284; J3010